=== PATIENT | female | born 1955 | race Caucasian/White ===

== ENCOUNTER 2016-10-21 11:41 | Inpatient (IN) | payer MEDICARE, OTHER ==
[2016-10-21] MEDS ORDERED: SODIUM CHLORIDE 0.9% 500 ML IV ONE (13:06)
--- NOTE | 2016-10-21 13:11 | ED ---
General Adult HPI - General Chief complaint: Recheck/Abnormal Lab/Rx Stated complaint: SENT BY DR EVANS FOR KIDNEY FAILURE Source: patient, RN notes reviewed, old records reviewed Mode of arrival: wheelchair Limitations: no limitations - History of Present Illness Initial comments: Chief complaint and history of present illness a 61-year-old female sent emergency room because of renal failure. Patient reports she had labs done by her family doctor yesterday because she's been feeling generally weak she also reports having loose stool for 1 year. Told to come to the emergency room because of dehydration and renal failure. - Related Data Home Medications Medication Instructions Recorded Confirmed Citalopram Hydrobromide [CeleXA] 40 mg PO DAILY 01/28/15 10/21/16 Fenofibrate Nanocrystallized 145 mg PO HS 01/28/15 10/21/16 [Tricor] Isosorbide Mononitrate ER [Imdur] 60 mg PO DAILY 01/28/15 10/21/16 amLODIPine BESYLATE [Norvasc] 5 mg PO DAILY 01/28/15 10/21/16 traMADol HCl [Ultram] 50 mg PO Q4H PRN 01/28/15 10/21/16 Fluticasone Nasal [place] [Flonase 2 spray EA NOSTRIL DAILY PRN 05/25/15 10/21/16 Nasal [place]] Aspirin [Adult Low Dose Aspirin EC] 81 mg PO DAILY 10/21/16 10/21/16 Previous Rx's Medication Instructions Recorded Nitroglycerin Sl Tabs [Nitrostat] 0.4 mg SUBLINGUAL Q5M PRN #25 tab 05/29/15 Atorvastatin [Lipitor] 80 mg PO DAILY #30 tab 06/10/15 Clopidogrel [Plavix] 75 mg PO DAILY #30 tab 06/10/15 Lisinopril [Zestril] 5 mg PO BID #60 tab 06/10/15 Metoprolol Tartrate [Lopressor] 25 mg PO BID #60 tab 06/10/15 Allergies Allergy/AdvReac Type Severity Reaction Status Date / Time Penicillins Allergy Rash/Hives Verified 10/21/16 13:13 Review of Systems ROS Statement: Those systems with pertinent positive or pertinent negative responses have been documented in the HPI. Review of systems no complaint of headache or visual acuity changes no chest pain or shortness of breath denies abdominal pain but she has had loose stool was daily for 1 year. No complaints of pain at this time she does have low back pain yesterday. No reported history of kidney infection denies frequency urgency or dysuria. No blood in the urine no blood in the stool. All systems reviewed past medical problems significant for coronary disease, diet- controlled diabetes. She's had cardiac bypass graft 7 years ago more recent cardiac catheterization 4 years ago. She also has a stent in her right groin. Family history includes cancers of the lung the sister, mother and uncle. Patient has ALLERGIES to penicillin. She still trying to quit smoking. Strongly encouraged to stop smoking. Denies alcohol use ROS Other: All systems not noted in ROS Statement are negative. Past Medical History Past Medical History: Coronary Artery Disease (CAD), Diabetes Mellitus Last Myocardial Infarction Date:: August 2009 History of Any Multi-Drug Resistant Organisms: None Reported Past Surgical History: Coronary Bypass/CABG, Heart Catheterization With Stent Additional Past Surgical History / Comment(s): triple bypass. heart cath in august 2009 at [facility] in [place]. "stent in right groin from blood clot" Past Anesthesia/Blood Transfusion Reactions: No Reported Reaction Past Psychological History: No Psychological Hx Reported Additional Psychological History / Comment(s): Single. Her adult daughter who is 35 lives with her. Ongoing tobacco smoker from her teenage years. Denies significant alcohol or recreational drug use. No experience. No travel history. No animals in the home at this point in time. His move back to [place] after many years living in the [facility], she would call this home. Smoking Status: Current every day smoker Past Alcohol Use History: None Reported Past Drug Use History: None Reported - Past Family History Father Family Medical History: COPD, Myocardial Infarction ([place]) Mother Family Medical History: Cancer, Myocardial Infarction ([place]) Additional Family Medical History / Comment(s): brain and lung cancer Sister(s) Family Medical History: Diabetes Mellitus, Myocardial Infarction ([place]) Additional Family Medical History / Comment(s): heart cath with stent General Exam - General Exam Comments Initial Comments: General: The patient is awake and alert, only complains low back discomfort yesterday. Loose stool daily for 1 year. Vital signs show temperature 99.5 pulse 71 respiratory rate 18 pulse ox 90% room air blood pressure 129/62. Mildly elevated systolic noted patient will be seen by her family physician Eye: Pupils are equal, round and reactive to light, extra-ocular movements are intact ; there is normal conjunctiva bilaterally. No signs of icterus. Ears, nose, mouth and throat: There are moist mucous membranes , no oral lesions, patient is edentulous. Neck: The neck is supple, there is no tenderness. Cardiovascular: There is a regular rate and rhythm. No murmur, rub or gallop is appreciated. Respiratory: Lungs are clear to auscultation, respirations are non-labored, breath sounds are equal. No wheezes, stridor, rales, or rhonchi. Gastrointestinal: Soft, non-distended, non-tender abdomen without masses or organomegaly noted. There is no rebound or guarding present. No CVA tenderness. Active bowel sounds. Patient reports history of watery stool for 1 year. Back: Mild low back pain. Musculoskeletal: Normal ROM, no tenderness, There is no pedal edema. There is no calf tenderness or swelling. Sensation intact. Pulses equal bilaterally 2+. Neurological: No neuro deficits Skin: Skin is warm and dry and no rashes or lesions are noted. Psychiatric: Denies depression. Limitations: no limitations Course Vital Signs 10/21/16 10/21/16 12:13 14:00 Temperature 99.5 F 98.8 F Pulse Rate 71 74 Respiratory 18 18 Rate Blood Pressure 129/62 126/78 O2 Sat by Pulse 98 97 Oximetry Medical Decision Making - Medical Decision Making Medical decision-making the patient's labs show a cost 7.8 hemoglobin 11.4 hematocrit 35.7, potassium 4.4. Her BUN is 44 creatinine significantly elevated 4.38 the GFR of only 10. The patient be rehydrated here in emergency room. Patient be admitted to Dr. Painter's number and with request for consultation from nephrology. - Lab Data Result diagrams: 10/21/16 12:55 10/21/16 12:55 Lab Results 10/21/16 10/21/16 10/21/16 Range/Units 12:55 12:55 13:17 WBC 7.8 (3.8-10.6) k/uL RBC 3.63 L (3.80-5.40) m/uL Hgb 11.4 (11.4-16.0) gm/dL Hct 35.7 (34.0-46.0) % MCV 98.5 (80.0-100.0) fL MCH 31.5 (25.0-35.0) pg MCHC 32.0 (31.0-37.0) g/dL RDW 13.4 (11.5-15.5) % Plt Count 389 (150-450) k/uL Neutrophils % 59 % Lymphocytes % 32 % Monocytes % 4 % Eosinophils % 4 % Basophils % 0 % Neutrophils # 4.6 (1.3-7.7) k/uL Lymphocytes # 2.5 (1.0-4.8) k/uL Monocytes # 0.3 (0-1.0) k/uL Eosinophils # 0.3 (0-0.7) k/uL Basophils # 0.0 (0-0.2) k/uL Sodium 138 (137-145) mmol/L Potassium 4.4 (3.5-5.1) mmol/L Chloride 108 H (98-107) mmol/L Carbon Dioxide 19 L (22-30) mmol/L Anion Gap 11 mmol/L BUN 44 H (7-17) mg/dL Creatinine 4.38 H (0.52-1.04) mg/dL Est GFR (MDRD) Af Amer 12 (>60 ml/min/1.73 sqM) Est GFR (MDRD) Non-Af 10 (>60 ml/min/1.73 sqM) Glucose 185 H (74-99) mg/dL Calcium 9.0 (8.4-10.2) mg/dL Total Bilirubin 0.3 (0.2-1.3) mg/dL AST 19 (14-36) U/L ALT 24 (9-52) U/L Alkaline Phosphatase 100 (38-126) U/L Total Protein 5.9 L (6.3-8.2) g/dL Albumin 3.0 L (3.5-5.0) g/dL Urine Color Yellow Urine Appearance Clear (Clear) Urine pH 6.5 (5.0-8.0) Ur Specific [place] 1.018 (1.001-1.035) Urine Protein 3+ H (Negative) Urine Glucose (UA) 3+ H (Negative) Urine Ketones Negative (Negative) Urine Blood Negative (Negative) Urine Nitrate Negative (Negative) Urine Bilirubin Negative (Negative) Urine Urobilinogen <2.0 (<2.0) mg/dL Ur Leukocyte Esterase Negative (Negative) Urine RBC 1 (0-5) /hpf Urine WBC 8 H (0-5) /hpf Ur Squamous Epith Cells 2 (0-4) /hpf Urine Bacteria Rare H (None) /hpf Disposition Clinical Impression: Acute renal failure superimposed on chronic kidney disease Disposition: ADMITTED IP TO THIS HOSP Condition: Serious
[2016-10-21 13:21] LABS: Basophils % (A) 0 %; CH 31.2; CHCM 31.8; Eosinophils # (A) 0.3 k/uL (0-0.7); Eosinophils % (A) 4 %; HCT 35.7 % (34.0-46.0); HDW 2.49; HGB 11.4 gm/dL (11.4-16.0); Luc # (Auto) 0.16; Luc % (Auto) 2; Lymphocytes # (A) 2.5 k/uL (1.0-4.8); Lymphocytes % (A) 32 %; MCH 31.5 pg (25.0-35.0); MCV 98.5 fL (80.0-100.0); Mean Platelet Volume 6.7; Monocytes # (A) 0.3 k/uL (0-1.0); Monocytes % (A) 4 %; Neutrophils # (A) 4.6 k/uL (1.3-7.7); Neutrophils % (A) 59 %; RBC 3.63 m/uL (3.80-5.40); RDW 13.4 % (11.5-15.5); WBC 7.8 k/uL (3.8-10.6); WBC (Perox) 7.69
[2016-10-21] MEDS: SODIUM CHLORIDE 0.9% 1,000 ML IV SCH ×2 (13:23→16:24)
[2016-10-21 13:35] LABS: Potassium 4.4 mmol/L (3.5-5.1); Total Bilirubin 0.3 mg/dL (0.2-1.3); Total Protein 5.9 g/dL (6.3-8.2)
[2016-10-21 13:55] LABS: Appearance,Urine Clear (Clear); Bacteria,Urine Rare /hpf; Bilirubin,Urine Negative (Negative); Glucose,Urine (UA) 3+ (Negative); Ketones,Urine Negative (Negative); Leukocyte Esterase,Urine Negative (Negative); Nitrite,Urine Negative (Negative); PH, Urine 6.5 (5.0-8.0); Particle Count 3707; Protein,Urine 3+ (Negative); RBC,Urine 1 /hpf (0-5); Specific Gravity,Urine 1.018 (1.001-1.035); Squamous Epithelial Cell,Urine 2 /hpf (0-4); UA Billing (MACRO vs. MICRO) MICRO; Urobilinogen,Urine <2.0 mg/dL (<2.0); WBC,Urine 8 /hpf (0-5)
[2016-10-21] MEDS ORDERED: NALOXONE 0.4 MG/ML 1 ML VIAL IV PRN (14:56)
[2016-10-21] MEDS ORDERED: FLUTICASONE 50MCG/SPRAY NASAL 16GM EA NOSTRIL PRN (14:59)
[2016-10-21] MEDS ORDERED: SODIUM CHLORIDE 0.9% 1,000 ML IV SCH (15:00)
[2016-10-21 16:46] LABS: Glucose,Whole Blood 131 mg/dL (75-99)
[2016-10-21 16:52] VITALS: BMI 32.3
[2016-10-21] MEDS ORDERED: NITROGLYCERIN SL TABS 0.4 MG TAB SUBLINGUAL PRN (17:03)
[2016-10-21] MEDS ORDERED: LOPERAMIDE 2 MG CAP PO PRN (17:08)
[2016-10-21] MEDS ORDERED: ONDANSETRON 4 MG/2 ML VIAL IVP PRN (17:10)
[2016-10-21] MEDS: traMADol 50 MG TAB PO PRN (18:39)
[2016-10-21] MEDS: LACTATED RINGERS 1,000 ML IV SCH (18:54)
[2016-10-21] MEDS: FENOFIBRATE 160 MG TAB PO SCH (20:38)
[2016-10-21] MEDS: FAMOTIDINE 20 MG/2 ML VIAL IV SCH (20:38)
[2016-10-21] MEDS: METOPROLOL TARTRATE 25 MG TAB PO SCH (20:38)
[2016-10-21] MEDS: CHOLESTYRAMINE (WITH SUGAR) 4 GM PACKET PO SCH (20:39)
[2016-10-21] MEDS ORDERED: LISINOPRIL 5 MG TAB PO SCH (21:00)
--- NOTE | 2016-10-21 21:18 | HP ---
DATE OF ADMISSION: 10/21/2016 Patient is a very pleasant 61-year-old female who came in after she was sent from her doctor's office for chronic renal failure. The patient has baseline creatinine is around 1.99, ( ) 4.5 creatinine, the patient is also on Lisinopril. The patient has chronic diarrhea. Started about six months ago, about four to five episodes whenever after she eats. Patient also complained of some gastritis symptoms after eating, although because of the poor renal function, patient was started on Pepcid instead of proton pump inhibitor and patient was never evaluated for chronic diarrhea in the past. Takes [id number] antidiarrheal medications. Denied any recent use of antibiotics. Patient denied any fatty stool or clear colored stool. Patient denied any floating of stool in the commode. The patient denied any fevers. The patient denied any cough, runny nose or dysuria. Home medications include: 1. Citalopram. 2. Fenofibrate. 3. Isosorbide mononitrate. 4. Amlodipine. 5. Tramadol. 6. Fluticasone. 7. Aspirin. 8. Nitroglycerin. 9. Atorvastatin. 10. Plavix. 11. Lisinopril. 12. Metoprolol. 13. ( ). ALLERGIES: PENICILLIN. REVIEW OF SYSTEMS: CONSTITUTIONAL: No fever, no malaise, no fatigue. HEENT: No recent visual problems or hearing problems. Denied any sore throat. CARDIOVASCULAR: As described in HPI. PULMONARY: No shortness of breath, no cough, no hemoptysis. GASTROINTESTINAL: No diarrhea, no nausea, no vomiting, no abdominal pain. Normoactive bowel sounds. NEUROLOGICAL: No headaches, no weakness, no numbness. HEMATOLOGICAL: Denies any bleeding or petechiae. GENITOURINARY: Denies any burning micturition, frequency, or urgency. MUSCULOSKELETAL/RHEUMATOLOGICAL: Denies any joint pain, swelling, or any muscle pain. ENDOCRINE: Denies any polyuria or polydipsia. The rest of the 14 point review of systems is negative. PAST MEDICAL HISTORY: Significant for coronary artery disease, diabetes mellitus, depression, hyperlipidemia. ALLERGIES to PENICILLIN. Patient has a history of coronary artery bypass grafting in the past. SOCIAL HISTORY: The patient does smoke. Denied any alcohol abuse or any drug abuse. FAMILY HISTORY: Significant for COPD, myocardial infarction in father, mother had cancer and myocardial infarction, sister had diabetes mellitus and myocardial infarction. PHYSICAL EXAMINATION: Temperature 99.5, pulse of 74, respiratory rate 18, blood pressure is 105/78, saturating at 97% on room air. GENERAL: The patient is alert and oriented x3, not in any acute distress. Well developed, well nourished. HEENT: Pupils are round and equally reacting to light. EOMI. No scleral icterus. No conjunctival pallor. Normocephalic, atraumatic. No pharyngeal erythema. No thyromegaly. CARDIOVASCULAR: S1 and S2 present. No murmurs, rubs, or gallops. PULMONARY: Chest is clear to auscultation, no wheezing or crackles. ABDOMEN: Soft, nontender, nondistended, normoactive bowel sounds. No palpable organomegaly. MUSCULOSKELETAL: No joint swelling or deformity. EXTREMITIES: No cyanosis, clubbing, or pedal edema. NEUROLOGICAL: Gross neurological examination did not reveal any focal deficits. SKIN: No rashes. LABORATORY DATA: CBC and BMP are abnormal for elevated chloride of 108, bicarbonate of 19. BUN of 44, creatinine of 4.38. UA 3+ protein, 3+ glucose. Some WBC and leukocyte esterase without any signs or symptoms of urinary tract infection. ASSESSMENT AND PLAN: 1. Secondary ( ) secondary to chronic diarrhea, the patient will be started on IV fluids ( ) per hour, which will be continued. I will use lactated Ringers instead of normal saline since the patient has IV normal saline instead of lactated Ringer's in the place of IV normal saline because of her hyperkalemia. 2. Chronic diarrhea, which needs to be ( ) chronic diarrhea with basic tests, possible rule out Clostridium difficile, we will also order stool leukocytes. Will consult gastroenterology. Patient will need colonoscopy eventually and further evaluation as an outpatient for ( ) her chronic diarrhea. 3. Coronary artery disease. 4. Type 2 diabetes mellitus. 5. Possibility of chronic kidney disease, the patient baseline creatinine is around 1.9. The patient probably has chronic kidney disease Stage III from diabetic nephropathy. Patient does have proteinuria. Acute renal failure is probably due to prerenal azotemia, from chronic diarrhea, the patient chronic kidney disease is probably from diabetic nephropathy and will obtain an ultrasound of the kidney and gallbladder along with urine random sodium and urine random creatinine to assess for fraction excretion of sodium. 6. Chronic diarrhea along with further evaluation we will give symptomatic treatment with Imodium and Questran. Lisinopril will be held. 7. Hypertension. Patient is on multiple medications for hypertension with ( ) pressure ( ) amlodipine ( ) Lisinopril will be held as well because of renal dysfunction.
--- NOTE | 2016-10-21 21:53 | US ---
EXAMINATION TYPE: US kidneys/renal and bladder DATE OF EXAM: 10/21/2016 8:12 PM COMPARISON: NONE CLINICAL HISTORY: kidney failure. EXAM MEASUREMENTS: Right Kidney: 11.7 x 4.7 x 4.6 cm Left Kidney: 11.1 x 4.4 x 4.5cm cm TECHNOLOGIST IMPRESSION: Right Kidney: No hydronephrosis or masses seen Left Kidney: No hydronephrosis or masses seen Bladder: not fully distended There is no evidence for hydronephrosis at this point in time. No nephrolithiasis is seen. No brendon s are identified. The urinary bladder is anechoic. Bilateral ureteral jets are seen. Additionally there are normal cortical medullary junctions bilaterally. IMPRESSION: No evidence of hydronephrosis or nephrolithiasis. No evidence of chronic medical renal disease.
[2016-10-22] MEDS: LACTATED RINGERS 1,000 ML IV SCH ×4 (00:36→20:38)
[2016-10-22 08:57] LABS: Basophils # (A) 0.1 k/uL (0-0.2); Basophils % (A) 1 %; CH 31.1; CHCM 30.6; Eosinophils # (A) 0.3 k/uL (0-0.7); Eosinophils % (A) 4 %; HCT 35.5 % (34.0-46.0); HDW 2.57; HGB 10.8 gm/dL (11.4-16.0); Hypochromasia Moderate; Luc # (Auto) 0.15; Luc % (Auto) 2; Lymphocytes # (A) 1.9 k/uL (1.0-4.8); Lymphocytes % (A) 26 %; MCH 31.1 pg (25.0-35.0); MCHC 30.4 g/dL (31.0-37.0); MCV 102.1 fL (80.0-100.0); Macrocytosis Slight; Mean Platelet Volume 7.5; Monocytes # (A) 0.3 k/uL (0-1.0); Monocytes % (A) 4 %; Neutrophils # (A) 4.6 k/uL (1.3-7.7); Neutrophils % (A) 63 %; RBC 3.48 m/uL (3.80-5.40); RDW 13.4 % (11.5-15.5); WBC 7.3 k/uL (3.8-10.6); WBC (Perox) 7.52
[2016-10-22 09:20] LABS: Calcium 8.9 mg/dL (8.4-10.2); Magnesium 1.5 mg/dL (1.6-2.3); Phosphorous 4.8 mg/dL (2.5-4.5); Potassium 4.8 mmol/L (3.5-5.1)
[2016-10-22] MEDS: ASPIRIN 81 MG CHEW PO SCH (09:24)
[2016-10-22] MEDS: CITALOPRAM HYDROBROMIDE 20 MG TAB PO SCH (09:24)
[2016-10-22] MEDS: ISOSORBIDE MONONITRATE ER 60 MG TAB.ER.24H PO SCH (09:24)
[2016-10-22] MEDS: CLOPIDOGREL 75 MG TAB PO SCH (09:24)
[2016-10-22] MEDS: CHOLESTYRAMINE (WITH SUGAR) 4 GM PACKET PO SCH ×3 (09:24→20:38)
[2016-10-22] MEDS: METOPROLOL TARTRATE 25 MG TAB PO SCH ×2 (09:25→20:38)
[2016-10-22] MEDS: FAMOTIDINE 20 MG/2 ML VIAL IV SCH ×2 (09:25→20:37)
[2016-10-22] MEDS: ATORVASTATIN 80 MG TAB PO SCH (09:25)
--- NOTE | 2016-10-22 12:09 | CONS ---
DATE OF CONSULTATION: 10/22/2016 Requesting physician: Dr. Bond. REASON FOR CONSULTATION: Chronic diarrhea. HISTORY OF PRESENT ILLNESS: The patient is a 61-year-old pleasant lady who was admitted to the hospital because of acute renal failure. Apparently she was not feeling well and went to see Dr. Encarnacion. She had routine labs on an outpatient basis done and her BUN and creatinine were elevated and she was advised to go to the emergency room. The reason we are consulted for chronic diarrhea. She has been having for the last one year duration. She has about 4 or 5 loose watery bowel movements daily and worse after eating. It can be day or night. She denies any rectal bleeding. Reports no recent weight loss. She denies starting any new medications in the last 6 months to one year. She discussed with Dr. Encarnacion and apparently was supposed to have an outpatient colonoscopy but has not happened so far. Her last colonoscopy was more than 10 years ago. She usually takes [id number] antidiarrheal with some relief. She denies any recent travel. Denies any recent antibiotic use. Her past medical history is significant for hypertension, hyperlipidemia, anxiety, depression, degenerative joint disease. Medications at home include: 1. Beta lurdes. 2. Lisinopril. 3. Plavix. 4. Atorvastatin. 5. Aspirin. 6. Nitroglycerin. 7. Zocor. 8. Fluticasone. 9. Tramadol. 10. Amlodipine. 11. Isordil. 12. Fenofibrate. 13. Citalopram. PAST SURGICAL HISTORY: Cardiac cath, coronary artery bypass surgery. SOCIAL HISTORY: No smoking. No alcohol use. FAMILY HISTORY: Father had COPD and MD. Mother had brain and lung cancer. ALLERGIES: PENICILLIN. SOCIAL HISTORY: No alcohol use. REVIEW OF SYSTEMS: CARDIOPULMONARY: No chest pain or shortness of breath. GENITOURINARY: No dysuria or hematuria. MUSCULOSKELETAL: Unremarkable. SKIN: Unremarkable. ENDOCRINE: Unremarkable. PSYCHIATRIC: Unremarkable. NEUROLOGY: Unremarkable. ENT: Vision unremarkable. CONSTITUTIONAL: No recent weight loss. No fevers, chills or night sweats. On physical examination, she appears comfortable in no apparent distress. Vitals as are stable. Blood pressure is 115/55, pulse rate 68, temperature 97.6. HEENT EXAMINATION: Unremarkable. Conjunctivae pink. Sclerae anicteric. Oral cavity, no lesions. NECK: No JVD or lymph node enlargement. Chest was clear to auscultation. HEART: Regular rate and rhythm. ABDOMEN: Soft. Bowel sounds are positive. It was nontender, nondistended. Liver and spleen not palpable. Bowel sounds are positive. EXTREMITIES: No pedal edema. SKIN: No rashes. NEURO: She is alert and oriented x3. No focal deficits. Labs done at the time of admission to the hospital: WBC is 11.3, hemoglobin 10.8, platelets are within normal limits. BUN was 44, creatinine 4.3. Today BUN is 39, creatinine 4.1. ALT, AST, T-bili and alkaline phosphatase are normal. C. difficile was negative. Ova parasites are still pending. IMPRESSION: 1. Acute renal failure superimposed on chronic renal failure. 2. Chronic diarrhea for the last one year duration. The patient having 5 to 6 loose watery bowel movements daily, but no blood or mucus in the stool. Colonoscopy more than 20 years ago was normal and recent stool studies for C. difficile toxin was negative. Discussed with the patient possible other causes of chronic diarrhea. She denies any recent new medications that were started in the last 6 months to one year. RECOMMENDATIONS: 1. Agree with stool studies. 2. Continue to use Imodium as needed if she has recurrent diarrhea. 3. I discussed with her she needs to have outpatient work-up, including an upper endoscopy as well as colonoscopy which will plan in the next 1 or 2 weeks following discharge from the hospital. 4. The patient is agreeable with this plan. Thank you for this consultation.
--- NOTE | 2016-10-22 12:11 | P.NPCON ---
History of Present Illness - Reason for Consult acute renal failure - History of Present Illness Reason for consultation: Acute kidney injury on chronic kidney disease. History of present illness: Patient is a 61-year-old female seen in renal consultation for acute kidney injury on chronic kidney disease. Patient has chronic kidney disease with quite rapid decline in kidney function. Her creatinine was near 1.8 in June 2015; near 3 in March 2016. She was noted to have nephrotic range proteinuria when I saw her in the office and she underwent a kidney biopsy which revealed advanced diabetic kidney disease along with severe interstitial fibrosis and tubular atrophy. She had blood work done at her primary care physician's office and was told to come to the emergency room due to abnormal labs. Her creatinine this admission was 4.38 and is improved to 4.1 with IV hydration. States she's been having watery bowel movements as well as intermittent vomiting for the last 6 months or so. Her appetite has been poor. States she was diagnosed with diabetes at the age of 14 and May was maintained on oral medications for several years up until 4 years ago when she also required insulin. However now she states that she is not taking any medications for her diabetes and is just diet controlled. I'm not sure how reliable she is. Admits to good urine output. Denies chest pain or shortness of breath. Denies use of NSAIDs. Hemodynamically she is stable. Vital signs are stable. General: The patient appeared well nourished and normally developed. HEENT: Head exam is unremarkable. Neck is without jugular venous distension. LUNGS: Lungs are clear to auscultation and percussion. Breath sounds decreased. HEART: Rate and Rhythm are regular. First and second heart sounds normal. No murmurs, rubs or gallops. ABDOMEN: Abdominal exam reveals normal bowel sounds. Non-tender and non- distended. No evidence of peritonitis. EXTREMITITES: No clubbing, cyanosis, or edema. Past Medical History Past Medical History: Coronary Artery Disease (CAD), Diabetes Mellitus, Deep Vein Thrombosis (DVT), Hyperlipidemia, Hypertension, Osteoarthritis (OA), Renal Disease Additional Past Medical History / Comment(s): right leg blood clot post CABG Last Myocardial Infarction Date:: August 2009 History of Any Multi-Drug Resistant Organisms: None Reported Past Surgical History: Coronary Bypass/CABG, Heart Catheterization With Stent Additional Past Surgical History / Comment(s): triple bypass. heart cath in august 2009 at [facility] in [place]. "stent in right groin from blood clot" Past Anesthesia/Blood Transfusion Reactions: No Reported Reaction Date of Last Stent Placement:: August 2009 Past Psychological History: No Psychological Hx Reported Additional Psychological History / Comment(s): Single. Her adult daughter who is 35 lives with her. Ongoing tobacco smoker from her teenage years. Denies significant alcohol or recreational drug use. No experience. No travel history. No animals in the home at this point in time. His move back to [place] after many years living in the [facility], she would call this home. Smoking Status: Former smoker Past Alcohol Use History: None Reported Past Drug Use History: None Reported - Past Family History Father Family Medical History: COPD, Hypertension, Myocardial Infarction ([place]) Mother Family Medical History: Cancer, Myocardial Infarction ([place]) Additional Family Medical History / Comment(s): brain and lung cancer Sister(s) Family Medical History: Cancer, Diabetes Mellitus, Myocardial Infarction ([place]) Additional Family Medical History / Comment(s): heart cath with stent Medications and Allergies Home Medications Medication Instructions Recorded Confirmed Type Citalopram Hydrobromide [CeleXA] 40 mg PO DAILY 01/28/15 10/21/16 History Fenofibrate Nanocrystallized 145 mg PO HS 01/28/15 10/21/16 History [Tricor] Isosorbide Mononitrate ER [Imdur] 60 mg PO DAILY 01/28/15 10/21/16 History amLODIPine BESYLATE [Norvasc] 5 mg PO DAILY 01/28/15 10/21/16 History traMADol HCl [Ultram] 50 mg PO Q4H PRN 01/28/15 10/21/16 History Fluticasone Nasal [place] [Flonase 2 spray EA NOSTRIL DAILY PRN 05/25/15 10/21/16 History Nasal [place]] Aspirin [Adult Low Dose Aspirin EC] 81 mg PO DAILY 10/21/16 10/21/16 History Allergies Allergy/AdvReac Type Severity Reaction Status Date / Time Penicillins Allergy Rash/Hives Verified 10/21/16 13:13 Physical Exam Vitals: Vital Signs Temp Pulse Pulse Resp BP BP Pulse Ox 10/22/16 07:00 65 22 157/69 100 10/21/16 23:00 97.0 F L 65 16 114/54 99 10/21/16 16:01 96.7 F L 64 18 128/62 99 10/21/16 16:00 18 10/21/16 15:33 97.6 F 68 18 115/55 98 Intake and Output 10/21/16 10/22/16 10/22/16 22:59 06:59 14:59 Intake Total 120 Balance 120 Intake: Oral 120 Other: Voiding Method Toilet # Voids 1 1 # Bowel Movements 1 Weight 75 kg 75 kg Patient Weight 10/23/16 06:59 Weight 75 kg Results - Lab Results Most recent lab results Calcium 8.9 mg/dL (8.4-10.2) 10/22/16 08:32 Phosphorus 4.8 mg/dL (2.5-4.5) H 10/22/16 08:32 Magnesium 1.5 mg/dL (1.6-2.3) L 10/22/16 08:32 10/22/16 08:32 10/22/16 08:32 Assessment and Plan Plan: Assessment: #1. Nonoliguric acute kidney injury mostly prerenal in nature secondary to poor oral intake along with vomiting and diarrhea. Creatinine 4.3 done admission and improved to 4.1 today. #2. Chronic kidney disease stage IV. Baseline creatinine near 3 secondary to biopsy-proven advanced diabetic kidney disease along with severe interstitial fibrosis and tubular atrophy. #3. Metabolic acidosis secondary to acute kidney injury. #4. Diabetes mellitus. Initially diagnosed at the age of 14 maintain on oral medications for several years. She was then on IV insulin temporarily. Now she states she doesn't require any meds for diabetes. Plan: Continue with IV fluids to be run at 150 mL an hour for the next 24 hours. Start oral sodium bicarbonate supplementation. Avoid nephrotoxic agents and hypotensive episodes. Check hemoglobin A1c. Thank you for the consultation. I will continue to follow the patient with you during her hospital stay.
--- NOTE | 2016-10-22 16:07 | PN ---
Patient is admitted for acute renal failure, CKD stage IV. Patient has diabetic nephropathy. Patient continues to be on IV fluid at 150 mL/h. At this time patient's kidney function improved a little bit. Patient's renal failure is secondary to chronic diarrhea. Patient evaluated by Gastroenterology. Patient needs to undergo further testing for chronic diarrhea as an outpatient. Patient's diarrhea did improve. There is symptomatic improvement. Patient's C. diff is negative. REVIEW OF SYSTEMS: CARDIOVASCULAR: No chest pain, no orthopnea, no PND, no palpitations. PULMONARY: Denied any shortness of breath. No cough or hemoptysis. GASTROINTESTINAL: As described in HPI. NEUROLOGIC: No headaches, no weakness, no numbness. Medications were reviewed. PHYSICAL EXAMINATION: VITAL SIGNS: Temperature 97.0, pulse of 61, respiratory rate of 16, blood pressure 111/45, saturating at 99% on room air. GENERAL: The patient is alert and oriented x3, not in any acute distress. Well developed, well nourished. HEENT: Pupils are round and equally reacting to light. EOMI. No scleral icterus. No conjunctival pallor. Normocephalic, atraumatic. No pharyngeal erythema. No thyromegaly. CARDIOVASCULAR: S1 and S2 present. No murmurs, rubs, or gallops. PULMONARY: Chest is clear to auscultation, no wheezing or crackles. ABDOMEN: Soft, nontender, nondistended, normoactive bowel sounds. No palpable organomegaly. MUSCULOSKELETAL: No joint swelling or deformity. EXTREMITIES: No cyanosis, clubbing, or pedal edema. NEUROLOGICAL: Gross neurological examination did not reveal any focal deficits. SKIN: No rashes. LABORATORY DATA: As mentioned above in interval history. Patient chloride is 112, because of IV normal saline. Bicarbonate is 17 partly because of hyperchloremia and partly because of uremia. I do not have any lactic acid available at this point of time. ASSESSMENT AND PLAN: 1. Acute renal failure secondary to prerenal azotemia, secondary to chronic diarrhea as mentioned. 2. Chronic diarrhea. Management as mentioned above. 3. Coronary artery disease. 4. Chronic kidney disease stage IV secondary to diabetic nephropathy, biopsy proven. 5. Hypertension. Patient's antihypertensives are being held because of her hypotension and renal failure. Metoprolol is being continued to prevent any reflex tachycardia.
[2016-10-22] MEDS: SODIUM BICARBONATE TAB 650 MG TAB PO SCH ×2 (17:28→20:47)
[2016-10-22] MEDS: traMADol 50 MG TAB PO PRN (20:37)
[2016-10-22] MEDS: FENOFIBRATE 160 MG TAB PO SCH (20:38)
[2016-10-23] MEDS: LACTATED RINGERS 1,000 ML IV SCH ×2 (06:21→10:03)
[2016-10-23 07:42] VITALS: BP 154/95; PULSE 66; RESP 20; TEMP 97.4
[2016-10-23 08:24] LABS: Calcium 8.9 mg/dL (8.4-10.2); Potassium 4.9 mmol/L (3.5-5.1)
[2016-10-23] MEDS: FAMOTIDINE 20 MG/2 ML VIAL IV SCH (08:25)
[2016-10-23] MEDS: ISOSORBIDE MONONITRATE ER 60 MG TAB.ER.24H PO SCH (08:25)
[2016-10-23] MEDS: METOPROLOL TARTRATE 25 MG TAB PO SCH (08:25)
[2016-10-23] MEDS: SODIUM BICARBONATE TAB 650 MG TAB PO SCH (08:25)
[2016-10-23] MEDS: CITALOPRAM HYDROBROMIDE 20 MG TAB PO SCH (08:25)
[2016-10-23] MEDS: CLOPIDOGREL 75 MG TAB PO SCH (08:25)
[2016-10-23] MEDS: ASPIRIN 81 MG CHEW PO SCH (08:25)
[2016-10-23] MEDS: ATORVASTATIN 80 MG TAB PO SCH (08:25)
[2016-10-23] MEDS: traMADol 50 MG TAB PO PRN (08:27)
--- NOTE | 2016-10-23 09:45 | P.PN ---
Subjective Patient is seen in follow-up for acute kidney injury on chronic kidney disease. Patient has chronic kidney disease stage IV secondary to biopsy-proven diabetic kidney disease. Her creatinine in March 2016 was near 3. It was elevated at 4.3 at the time of admission and is improved to 3.79 today with IV hydration. Appetite is improving. Did have an episode of emesis yesterday. Denies any chest pain or shortness of breath. Admits to good urine output. Vital signs are stable. General: The patient appeared well nourished and normally developed. HEENT: Head exam is unremarkable. Neck is without jugular venous distension. LUNGS: Lungs are clear to auscultation and percussion. Breath sounds decreased. HEART: Rate and Rhythm are regular. First and second heart sounds normal. No murmurs, rubs or gallops. ABDOMEN: Abdominal exam reveals normal bowel sounds. Non-tender and non- distended. No evidence of peritonitis. EXTREMITITES: No clubbing, cyanosis, or edema. Objective - Vital Signs Vital signs: Vital Signs Temp 97.4 F L 10/23/16 07:00 Pulse 66 10/23/16 07:00 Resp 20 10/23/16 07:00 BP 154/95 10/23/16 07:00 Pulse Ox 98 10/23/16 07:00 Intake & Output 10/22/16 10/23/16 10/23/16 18:59 06:59 18:59 Intake Total 320 Output Total 1 Balance 320 -1 Weight 75 kg Intake: Oral 320 Output: Emesis 1 Other: # Voids 2 1 - Labs CBC & Chem 7: 10/22/16 08:32 10/23/16 07:33 Labs: Abnormal Lab Results - Last 24 Hours (Table) 10/23/16 Range/Units 07:33 Chloride 114 H (98-107) mmol/L Carbon Dioxide 19 L (22-30) mmol/L BUN 32 H (7-17) mg/dL Creatinine 3.79 H (0.52-1.04) mg/dL Microbiology - Last 24 Hours (Table) 10/22/16 00:00 Stool for WBCs - Final Stool 10/22/16 00:00 Stool Culture - Preliminary Stool Assessment and Plan Plan: Assessment: #1. Nonoliguric acute kidney injury mostly prerenal in nature secondary to poor oral intake along with vomiting and diarrhea. Creatinine 4.3 done admission and improved to 3.79 today. #2. Chronic kidney disease stage IV. Baseline creatinine near 3 secondary to biopsy-proven advanced diabetic kidney disease along with severe interstitial fibrosis and tubular atrophy. #3. Metabolic acidosis secondary to acute kidney injury. Improving. #4. Diabetes mellitus. Initially diagnosed at the age of 14 maintain on oral medications for several years. She was then on IV insulin temporarily. Now she states she doesn't require any meds for diabetes. Plan: Decrease rate of IV fluids to 80 mL an hour. Maintain oral sodium bicarbonate supplementation. Avoid nephrotoxic agents and hypotensive episodes. Check hemoglobin A1c. Follow-up cultures. Possible discharge today. Will need to follow-up as an outpatient in the next 1 -2 weeks.
[2016-10-23] MEDS ORDERED: CHOLESTYRAMINE (WITH SUGAR) 4 GM PACKET PO SCH (10:00)
[2016-10-23] MEDS ORDERED: LACTATED RINGERS 1,000 ML IV SCH (10:00)
[2016-10-23 10:02] LABS: Hemoglobin A1C 5.6 % (4.2-6.1)
--- NOTE | 2016-10-23 12:24 | PN ---
DATE OF SERVICE: 10/23/2016 Patient is a 61-year-old pleasant lady admitted to the hospital with acute renal failure. She has been having diarrhea for the last one-year duration and hence, we are consulted. Stool studies so far showed negative for C. diff toxin and leukocytes were also negative. In the meantime, since she has been in the hospital, the diarrhea has completely resolved. In fact, she did not have a bowel movement today. No abdominal pain. No nausea, vomiting or ( ). On physical examination, she appears comfortable, in no apparent distress. Vitals as are stable. Blood is 122/86, pulse is 84 per minute and afebrile. HEENT EXAMINATION: Unremarkable. Conjunctivae are pink. Sclerae nonicteric. Oral cavity, no lesions. NECK: No JVD or lymph node enlargement. Chest was clear to auscultation. HEART: Regular rate and rhythm. ABDOMEN: Soft. Bowel sounds are positive. EXTREMITIES: No pedal edema. SKIN: No rashes. NEURO: Alert and oriented x3, no focal deficits. LABS: CBC ( ) is pending. Stool cultures so far are negative, leukocytes negative. IMPRESSION: 1. Acute renal failure, on aggressive IV hydration, the BUN and creatinine are gradually improving. 2. Chronic diarrhea for one-year duration. So far stool studies have been negative. RECOMMENDATIONS: Patient advised to have a colonoscopy on an outpatient basis to investigate the diarrhea. For now, continue with symptomatic and supportive care. Will sign off. Please call us if needed. Thank you for this consultation.
--- NOTE | 2016-10-23 17:21 | DS ---
DATE OF ADMISSION: 10/21/2016 DATE OF DISCHARGE: 10/23/2016 Patient is admitted for chronic diarrhea and acute renal failure secondary to that and patient does CKD stage IV. Acute renal failure improved, diarrhea improved with symptomatic treatment. Patient will undergo further evaluation as an outpatient for her chronic diarrhea. Patient was seen and examined on the day of discharge. Vitals are stable. PHYSICAL EXAMINATION: GENERAL: The patient is alert and oriented x3, not in any acute distress. Well developed, well nourished. HEENT: Pupils are round and equally reacting to light. EOMI. No scleral icterus. No conjunctival pallor. Normocephalic, atraumatic. No pharyngeal erythema. No thyromegaly. CARDIOVASCULAR: S1 and S2 present. No murmurs, rubs, or gallops. PULMONARY: Chest is clear to auscultation, no wheezing or crackles. ABDOMEN: Soft, nontender, nondistended, normoactive bowel sounds. No palpable organomegaly. MUSCULOSKELETAL: No joint swelling or deformity. EXTREMITIES: No cyanosis, clubbing, or pedal edema. NEUROLOGICAL: Gross neurological examination did not reveal any focal deficits. SKIN: No rashes. FINAL DIAGNOSES: 1. Acute renal failure secondary to prerenal azotemia which improved with IV fluid hydration. 2. Chronic kidney disease stage IV secondary to diabetic nephropathy. 3. Chronic diarrhea, which will need further evaluation as an outpatient. Symptomatic treatment for now. 4. Type 2 diabetes mellitus. 5. Hypertension. Please refer to my depart summary for further details of discharge medication. DISCHARGE DIET: Cardiac and ADA 1800 calorie diet. Follow up with Dr. Lyudmila Chapa in one week; Dr. Francis Encarnacion in 3 to 7 days; Dr. Benji Zimmer in one week. Activity as tolerated. Spent greater than 35 minutes in total discharge process.
== END 2016-10-23 14:15 | disposition home or self-care (01) | DRG 683 ==
LOC: EC 11:41 → 4MS4W 14:56
PROVIDERS: ADMIT Internal Medicine; ATTEND Internal Medicine
DX: N17.9 Acute kidney failure, unspecified (principal); E87.2 Acidosis; E11.21 Type 2 diabetes mellitus with diabetic nephropathy; E11.22 Type 2 diabetes mellitus with diabetic chronic kidney disease; I95.9 Hypotension, unspecified; E78.5 Hyperlipidemia, unspecified; F17.200 Nicotine dependence, unspecified, uncomplicated; I12.9 Hypertensive chronic kidney disease with stage 1 through stage 4 chronic kidney disease, or unspecified chronic kidney disease; I25.10 Atherosclerotic heart disease of native coronary artery without angina pectoris; I25.2 Old myocardial infarction; K52.9 Noninfective gastroenteritis and colitis, unspecified; N18.4 Chronic kidney disease, stage 4 (severe); F32.9 Major depressive disorder, single episode, unspecified; F41.9 Anxiety disorder, unspecified; K29.70 Gastritis, unspecified, without bleeding; Z79.82 Long term (current) use of aspirin; Z79.02 Long term (current) use of antithrombotics/antiplatelets; Z79.899 Other long term (current) drug therapy; Z88.0 Allergy status to penicillin; Z95.1 Presence of aortocoronary bypass graft; Z95.5 Presence of coronary angioplasty implant and graft; Z82.49 Family history of ischemic heart disease and other diseases of the circulatory system
CPT/HCPCS: 36415; 76770; 80048; 80053; 81001; 82570; 83036; 83735; 84100; 84300; 85025; 87045; 87046; 87086; 87324; 89055; 99285

== ENCOUNTER 2016-11-18 07:28 | Day surgery (SDC) | payer MEDICARE, OTHER ==
[2016-11-16 10:26] VITALS: BMI 32.5
[~2016-11-18 07:28] MED LIST: LACTATED RINGERS 1,000 ML IV SCH
[2016-11-18 07:52] VITALS: RESP 16; TEMP 97.4
[2016-11-18] MEDS ORDERED: LIDOCAINE 1% 20 ML VIAL (10MG/ML) FOR IV START INTRADERMA ONE (07:52)
[2016-11-18 08:00] LABS: Glucose,Whole Blood 86 mg/dL (75-99)
[2016-11-18] MEDS ORDERED: GLUCAGON 1 MG/ML VIAL ONE (08:12)
[2016-11-18] MEDS ORDERED: LABETALOL 5 MG/ML VIAL MDV ONE (08:12)
[2016-11-18] MEDS ORDERED: PROPOFOL 10 MG/ML 20 ML VIAL IV ONE (08:12)
[2016-11-18] MEDS ORDERED: ONDANSETRON 4 MG/2 ML VIAL ONE (08:12)
[2016-11-18] MEDS ORDERED: LIDOCAINE 1% INJ 10MG/ML (20 ML MDV) ONE (08:12)
[2016-11-18] MEDS ORDERED: IV FLUID CONTINUATION 1,000 ML IV ONE (09:10)
--- NOTE | 2016-11-18 09:14 | P.PCN ---
Date of Procedure: 11/18/16 Procedure(s) Performed: Brief history: Patient is a pleasant 61-year-old white female, scheduled for an elective upper endoscopy as well as colonoscopy as a part of evaluation of with chronic diarrhea and abdominal pain for the last 1 year duration. She has bowel movements anywhere from 4-5 a day which are loose to watery in consistency but no blood or mucus in the stool. In view of the symptoms she is scheduled for an upper endoscopy as well as colonoscopy to evaluate further. Procedure performed: Esophagogastroduodenoscopy with biopsy Colonoscopy with snare polypectomy and resolution clip placement Preoperative diagnosis: Abdominal pain and chronic diarrhea Anesthesia: MAC Procedure: After informed consent was obtained from the patient was brought into the endoscopy unit and IV conscious sedation was administered by anesthesia under continuous monitoring. Initially upper endoscopy was done. The Olympus GF 160 video endoscope was inserted inserted into the mouth and esophagus intubated without any difficulty and was gradually advanced into the stomach and duodenum and carefully examined. The bulb and second part of the duodenum appeared normal. In the second part of the duodenum there was a 1 cm some mucosal polyp that was biopsied. The scope was then withdrawn into the stomach adequately insufflated with air and upon careful examination the antrum had mild gastritis and biopsies were done from this area. The body, cardia and fundus appeared normal. The scope was then withdrawn into the esophagus. The GE junction was located at 40 cm to the incisors. It appeared regular with no erythema erosions or ulcerations. Rest of the esophagus appeared normal. Patient tolerated the procedure well. At this time the patient continued to remain sedation. Initial digital rectal examination was normal. Olympus CF 160 video colonoscope was then inserted into the rectum and gradually advanced to the cecum without any difficulty. Careful examination was performed as the scope was gradually being withdrawn. The prep was excellent. in the cecum there were 4 polyps measuring between 1 cm and 5 mm in size all of which were removed by snare polypectomy. In the ascending colon there was a 1 cm polyp removed by snare polypectomy. In the transverse colon there were total of 4 polyps one of which measured 3 cm and the other 2 measured 2 cm in size and one polyp that was 1 cm in size which was removed by snare polypectomy. In the descending colon revealed 1 cm and 2 cm polyp status post by snare polypectomy. In the sigmoid colon at 30 cm from the anal verge there was a 2 cm thick pedunculated sigmoid colon polyp that was removed by snare polypectomy following which there was some oozing identified at the stalk of the polyp and hence resolution clip was placed with good hemostasis. In the rectum and sigmoid colons 27 minutes from the anal was there was a 4 cm polypoid pedunculated polyp seen which was removed by snare polypectomy and complete polypectomy was accomplished. In the proximal rectum there was a 1 cm the polyp removed by snare polypectomy. Retroflexion was performed in the rectum and no lesions were noted. Patient tolerated the procedure well. Impression: 1.upper endoscopy revealed mild antral gastritis and a 1 cm submucosal duodenal polyp status post biopsy 2. Colonoscopy revealed : a) 1 cm, and 5 mm 3 cecal polyps status post snare polypectomy b) 1 cm ascending colon polyp serous was snare polypectomy c) 3 cm broad-based polyp, 2 cm 2 and 1 cm 2 transverse colon polyps status post polypectomy d) 1 cm and 2 cm descending colon polyps status post polypectomy e) 2 cm thick pedunculated sigmoid colon polyp status post snare polypectomy, some oozing noted at the stalk of the polyp and hence resolution clip was placed with good hemostasis f) 4 cm polypoid pedunculated rectosigmoid polyp status post snare polypectomy in a piecemeal fashion and complete polypectomy accomplished g) 1.5 cm proximal rectal polyp status post polypectomy Recommendations: Findings of this examination were discussed with the patient as well as her family. She was advised to follow with the biopsy results. She will be seen in office in one to 2 weeks and will discuss the biopsy results and plan a repeat colonoscopy in 3 months.]
[2016-11-18 09:33] LABS: Glucose,Whole Blood 144 mg/dL (75-99)
[2016-11-18] MEDS ORDERED: METOCLOPRAMIDE 5 MG/ML 2 ML VIAL IVP ONE (09:36)
[2016-11-18] MEDS ORDERED: ACETAMINOPHEN TAB 500 MG TAB PO STA (09:46)
[2016-11-18 10:15] VITALS: BP 175/67; PULSE 70
== END 2016-11-18 10:26 | disposition home or self-care (01) ==
LOC: ORWHC2ENDO 07:28
PROVIDERS: ATTEND Internal Medicine Gastroenterology
DX: D12.0 Benign neoplasm of cecum (principal); D12.7 Benign neoplasm of rectosigmoid junction; D12.2 Benign neoplasm of ascending colon; D12.4 Benign neoplasm of descending colon; D12.5 Benign neoplasm of sigmoid colon; D12.3 Benign neoplasm of transverse colon; D12.8 Benign neoplasm of rectum; K29.80 Duodenitis without bleeding; K29.50 Unspecified chronic gastritis without bleeding; I25.10 Atherosclerotic heart disease of native coronary artery without angina pectoris; I10 Essential (primary) hypertension; E78.5 Hyperlipidemia, unspecified; N28.9 Disorder of kidney and ureter, unspecified; Z88.0 Allergy status to penicillin; Z79.02 Long term (current) use of antithrombotics/antiplatelets; Z79.82 Long term (current) use of aspirin; Z79.899 Other long term (current) drug therapy; Z79.51 Long term (current) use of inhaled steroids; Z95.1 Presence of aortocoronary bypass graft; Z95.5 Presence of coronary angioplasty implant and graft
CPT/HCPCS: 88305; 88342; 45385; 43239; J1610; J2765; J2405; J2001; J2704

== ENCOUNTER 2016-12-28 15:40 | Inpatient (IN) | payer MEDICARE, OTHER ==
[2016-12-28] MEDS ORDERED: SODIUM CHLORIDE 0.9% 500 ML IV ONE (16:23)
[2016-12-28] MEDS ORDERED: IPRATROPIUM-ALBUTEROL 3 ML NEB INHALATION STA (16:23)
--- NOTE | 2016-12-28 16:39 | ED ---
General Adult HPI - General Source: patient, RN notes reviewed Mode of arrival: ambulatory Limitations: no limitations <Tony Philip - Last Filed: 12/28/16 17:29> <Yung Pandya - Last Filed: 01/04/17 05:18> - General Chief complaint: Recheck/Abnormal Lab/Rx Stated complaint: Dr Sent/ Kidney failure Time Seen by Provider: 12/28/16 16:19 - History of Present Illness Initial comments: 61-year-old female presents emergency department for abnormal labs. Patient states she saw her primary care physician for regular checkup, cold visit. Patient states that she's been sick over the last 3 days and was diagnosed with upper respiratory infection states that she is mostly of antibiotics today but she received a phone call from primary care physician [facility] to the hospital for renal failure. She states she has had problem with renal failure in the past but states that she was told was worse. Patient does feel fatigued. Denies any chest pain. Patient has COPD and has been wheezing. She also has had some sinus congestion. Denies any abdominal pain, nausea vomiting diarrhea constipation. (Tony Philip) - Related Data Home Medications Medication Instructions Recorded Confirmed Citalopram Hydrobromide [CeleXA] 40 mg PO DAILY 01/28/15 12/28/16 Isosorbide Mononitrate ER [Imdur] 60 mg PO DAILY 01/28/15 12/28/16 traMADol HCl [Ultram] 50 mg PO Q4H PRN 01/28/15 12/28/16 Fluticasone Nasal [place] [Flonase 2 spray EA NOSTRIL DAILY PRN 05/25/15 11/18/16 Nasal [place]] Aspirin [Adult Low Dose Aspirin EC] 81 mg PO DAILY 10/21/16 12/28/16 ALPRAZolam [Alprazolam] 0.25 mg PO HS 12/28/16 12/28/16 Sodium Bicarbonate Tab 650 mg PO AC-BID 12/28/16 12/28/16 Previous Rx's Medication Instructions Recorded Nitroglycerin Sl Tabs [Nitrostat] 0.4 mg SUBLINGUAL Q5M PRN #25 tab 05/29/15 Atorvastatin [Lipitor] 80 mg PO DAILY #30 tab 06/10/15 Clopidogrel [Plavix] 75 mg PO DAILY #30 tab 06/10/15 Metoprolol Tartrate [Lopressor] 25 mg PO BID #60 tab 06/10/15 Cholestyramine (with Sugar) 4 gm PO TID BETWEEN MEALS #30 10/23/16 [Questran Packet] packet Loperamide [Imodium] 2 mg PO QID PRN #30 cap 10/23/16 Budesonide [Pulmicort] 1 mg INHALATION RT-BID #60 nebu 01/02/17 Calcium Acetate [PhosLo] 667 mg PO TID-W/MEALS #90 cap 01/02/17 Ipratropium-Albuterol Nebulize 3 ml INHALATION RT-TID #90 01/02/17 [Duoneb 0.5 mg-3 mg/3 ml Soln] ampul.neb Prazosin [Minipress] 2 mg PO TID #90 cap 01/02/17 amLODIPine [Norvasc] 10 mg PO DAILY #30 tab 01/02/17 predniSONE 20 mg PO DAILY #4 tab 01/02/17 Allergies Allergy/AdvReac Type Severity Reaction Status Date / Time Penicillins Allergy Rash/Hives Verified 12/28/16 16:44 Review of Systems ROS Other: All systems not noted in ROS Statement are negative. <Tony Philip - Last Filed: 12/28/16 17:29> ROS Other: All systems not noted in ROS Statement are negative. <Yung Pandya - Last Filed: 01/04/17 05:18> ROS Statement: Those systems with pertinent positive or pertinent negative responses have been documented in the HPI. Past Medical History Past Medical History: Coronary Artery Disease (CAD), Diabetes Mellitus, Deep Vein Thrombosis (DVT), Hyperlipidemia, Hypertension, Osteoarthritis (OA), Renal Disease Additional Past Medical History / Comment(s): right leg blood clot post CABG Last Myocardial Infarction Date:: August 2009 History of Any Multi-Drug Resistant Organisms: None Reported Past Surgical History: Coronary Bypass/CABG, Heart Catheterization With Stent Additional Past Surgical History / Comment(s): triple bypass. heart cath in august 2009 at [facility] in [place]. "stent in right groin from blood clot" Past Anesthesia/Blood Transfusion Reactions: No Reported Reaction Date of Last Stent Placement:: August 2009 Past Psychological History: No Psychological Hx Reported Additional Psychological History / Comment(s): Single. Her adult daughter who is 35 lives with her. Ongoing tobacco smoker from her teenage years. Denies significant alcohol or recreational drug use. No experience. No travel history. No animals in the home at this point in time. His move back to [place] after many years living in the [facility] part of the [facility], she would call this home. Smoking Status: Current every day smoker Past Alcohol Use History: None Reported Additional Past Alcohol Use History / Comment(s): smoker since teenager Past Drug Use History: None Reported - Past Family History Father Family Medical History: COPD, Hypertension, Myocardial Infarction ([place]) Mother Family Medical History: Cancer, Myocardial Infarction ([place]) Additional Family Medical History / Comment(s): brain and lung cancer Sister(s) Family Medical History: Cancer, Diabetes Mellitus, Myocardial Infarction ([place]) Additional Family Medical History / Comment(s): heart cath with stent <Tony Philip - Last Filed: 12/28/16 17:29> General Exam Limitations: no limitations General appearance: alert, in no apparent distress Head exam: Present: atraumatic, normocephalic, normal inspection Eye exam: Present: normal appearance, PERRL, EOMI. Absent: scleral icterus, conjunctival injection, periorbital swelling ENT exam: Present: normal oropharynx Neck exam: Present: normal inspection, full ROM. Absent: tenderness, meningismus, lymphadenopathy Respiratory exam: Present: wheezes. Absent: normal lung sounds bilaterally, respiratory distress, rales, rhonchi, stridor Cardiovascular Exam: Present: regular rate, normal rhythm, normal heart sounds. Absent: systolic murmur, diastolic murmur, rubs, gallop, clicks GI/Abdominal exam: Present: soft, normal bowel sounds. Absent: distended, tenderness, guarding, rebound, rigid Neurological exam: Present: alert, oriented X3, CN II-XII intact Skin exam: Present: warm, dry, intact, normal color. Absent: rash <Tony Philip - Last Filed: 12/28/16 17:29> Medical Decision Making - Lab Data Result diagrams: 12/28/16 16:27 12/28/16 16:27 <Tony Philip - Last Filed: 12/28/16 17:29> - Lab Data Result diagrams: 01/01/17 07:28 01/01/17 07:28 <Yung Pandya - Last Filed: 01/04/17 05:18> - Medical Decision Making I saw this patient in conjunction with the physician bilingual teacher assistant. I performed independent history and physical exam. Agree with case management. (Yung Pandya) - Lab Data Lab Results 12/28/16 12/28/16 12/28/16 Range/Units 16:27 16:27 16:27 WBC 10.8 H (3.8-10.6) k/uL RBC 3.73 L (3.80-5.40) m/uL Hgb 11.2 L (11.4-16.0) gm/dL Hct 35.7 (34.0-46.0) % MCV 95.8 (80.0-100.0) fL MCH 30.1 (25.0-35.0) pg MCHC 31.4 (31.0-37.0) g/dL RDW 13.8 (11.5-15.5) % Plt Count 338 (150-450) k/uL Neutrophils % 69 % Lymphocytes % 23 % Monocytes % 3 % Eosinophils % 3 % Basophils % 0 % Neutrophils # 7.4 (1.3-7.7) k/uL Lymphocytes # 2.5 (1.0-4.8) k/uL Monocytes # 0.3 (0-1.0) k/uL Eosinophils # 0.4 (0-0.7) k/uL Basophils # 0.1 (0-0.2) k/uL Sodium 136 L (137-145) mmol/L Potassium 4.3 (3.5-5.1) mmol/L Chloride 110 H (98-107) mmol/L Carbon Dioxide 19 L (22-30) mmol/L Anion Gap 7 mmol/L BUN 39 H (7-17) mg/dL Creatinine 6.31 H* (0.52-1.04) mg/dL Est GFR (MDRD) Af Amer 8 (>60 ml/min/1.73 sqM) Est GFR (MDRD) Non-Af 7 (>60 ml/min/1.73 sqM) Glucose 138 H (74-99) mg/dL Plasma Lactic Acid Bar 1.3 (0.7-2.0) mmol/L Calcium 7.7 L (8.4-10.2) mg/dL Phosphorus 6.9 H (2.5-4.5) mg/dL Magnesium 2.0 (1.6-2.3) mg/dL Total Bilirubin 0.3 (0.2-1.3) mg/dL AST 18 (14-36) U/L ALT 20 (9-52) U/L Alkaline Phosphatase 120 (38-126) U/L Total Protein 5.1 L (6.3-8.2) g/dL Albumin 2.2 L (3.5-5.0) g/dL Urine Color Urine Appearance (Clear) Urine pH (5.0-8.0) Ur Specific [place] (1.001-1.035) Urine Protein (Negative) Urine Glucose (UA) (Negative) Urine Ketones (Negative) Urine Blood (Negative) Urine Nitrite (Negative) Urine Bilirubin (Negative) Urine Urobilinogen (<2.0) mg/dL Ur Leukocyte Esterase (Negative) Urine WBC (0-5) /hpf Ur Squamous Epith Cells (0-4) /hpf Urine Bacteria (None) /hpf Hyaline Casts (0-2) /lpf Urine Mucus (None) /hpf 12/28/16 Range/Units 16:27 WBC (3.8-10.6) k/uL RBC (3.80-5.40) m/uL Hgb (11.4-16.0) gm/dL Hct (34.0-46.0) % MCV (80.0-100.0) fL MCH (25.0-35.0) pg MCHC (31.0-37.0) g/dL RDW (11.5-15.5) % Plt Count (150-450) k/uL Neutrophils % % Lymphocytes % % Monocytes % % Eosinophils % % Basophils % % Neutrophils # (1.3-7.7) k/uL Lymphocytes # (1.0-4.8) k/uL Monocytes # (0-1.0) k/uL Eosinophils # (0-0.7) k/uL Basophils # (0-0.2) k/uL Sodium (137-145) mmol/L Potassium (3.5-5.1) mmol/L Chloride (98-107) mmol/L Carbon Dioxide (22-30) mmol/L Anion Gap mmol/L BUN (7-17) mg/dL Creatinine (0.52-1.04) mg/dL Est GFR (MDRD) Af Amer (>60 ml/min/1.73 sqM) Est GFR (MDRD) Non-Af (>60 ml/min/1.73 sqM) Glucose (74-99) mg/dL Plasma Lactic Acid Bar (0.7-2.0) mmol/L Calcium (8.4-10.2) mg/dL Phosphorus (2.5-4.5) mg/dL Magnesium (1.6-2.3) mg/dL Total Bilirubin (0.2-1.3) mg/dL AST (14-36) U/L ALT (9-52) U/L Alkaline Phosphatase (38-126) U/L Total Protein (6.3-8.2) g/dL Albumin (3.5-5.0) g/dL Urine Color Yellow Urine Appearance Cloudy H (Clear) Urine pH 7.5 (5.0-8.0) Ur Specific [place] 1.022 (1.001-1.035) Urine Protein 4+ H (Negative) Urine Glucose (UA) 3+ H (Negative) Urine Ketones Negative (Negative) Urine Blood Small H (Negative) Urine Nitrite Positive H (Negative) Urine Bilirubin Negative (Negative) Urine Urobilinogen <2.0 (<2.0) mg/dL Ur Leukocyte Esterase Moderate H (Negative) Urine WBC 136 H (0-5) /hpf Ur Squamous Epith Cells 1 (0-4) /hpf Urine Bacteria Rare H (None) /hpf Hyaline Casts 7 H (0-2) /lpf Urine Mucus Rare H (None) /hpf Disposition <Tony Philip - Last Filed: 12/28/16 17:29> <Yung Pandya - Last Filed: 01/04/17 05:18> Clinical Impression: Acute renal failure superimposed on chronic kidney disease, UTI (urinary tract infection), Fever, COPD (chronic obstructive pulmonary disease) Disposition: ADMITTED IP TO THIS HOSP Condition: Fair
[2016-12-28 16:46] LABS: Basophils # (A) 0.1 k/uL (0-0.2); Basophils % (A) 0 %; CH 31.1; CHCM 32.7; Eosinophils # (A) 0.4 k/uL (0-0.7); Eosinophils % (A) 3 %; HCT 35.7 % (34.0-46.0); HDW 2.83; HGB 11.2 gm/dL (11.4-16.0); Luc # (Auto) 0.13; Luc % (Auto) 1; Lymphocytes # (A) 2.5 k/uL (1.0-4.8); Lymphocytes % (A) 23 %; MCH 30.1 pg (25.0-35.0); MCHC 31.4 g/dL (31.0-37.0); MCV 95.8 fL (80.0-100.0); Mean Platelet Volume 6.6; Monocytes # (A) 0.3 k/uL (0-1.0); Monocytes % (A) 3 %; Neutrophils # (A) 7.4 k/uL (1.3-7.7); Neutrophils % (A) 69 %; RBC 3.73 m/uL (3.80-5.40); RDW 13.8 % (11.5-15.5); WBC 10.8 k/uL (3.8-10.6); WBC (Perox) 10.99
[2016-12-28 16:51] LABS: Appearance,Urine Cloudy (Clear); Bacteria,Urine Rare /hpf; Bilirubin,Urine Negative (Negative); Glucose,Urine (UA) 3+ (Negative); Ketones,Urine Negative (Negative); Leukocyte Esterase,Urine Moderate (Negative); Mucus,Urine Rare /hpf; Nitrite,Urine Positive (Negative); PH, Urine 7.5 (5.0-8.0); Particle Count 9747; Protein,Urine 4+ (Negative); Specific Gravity,Urine 1.022 (1.001-1.035); Squamous Epithelial Cell,Urine 1 /hpf (0-4); UA Billing (MACRO vs. MICRO) MICRO; Urobilinogen,Urine <2.0 mg/dL (<2.0); WBC,Urine 136 /hpf (0-5)
[2016-12-28 17:05] LABS: Calcium 7.7 mg/dL (8.4-10.2); Phosphorous 6.9 mg/dL (2.5-4.5); Potassium 4.3 mmol/L (3.5-5.1); Total Bilirubin 0.3 mg/dL (0.2-1.3); Total Protein 5.1 g/dL (6.3-8.2)
--- NOTE | 2016-12-28 17:11 | XR ---
EXAMINATION TYPE: XR chest 2V DATE OF EXAM: 12/28/2016 5:05 PM COMPARISON: 06/07/2015 HISTORY: Short of breath TECHNIQUE: Frontal and lateral views of the chest are obtained. FINDINGS: There is no heart failure nor confluent pneumonic infiltrate. There are no hilar masses. H eart size is normal. There is no pleural effusion. There are sternal wires. Bony thorax appears intac t. There is spurring in lower thoracic spine. IMPRESSION: No active cardiopulmonary disease. Normal heart. No change.
[2016-12-28] MEDS ORDERED: ACETAMINOPHEN TAB 325 MG TAB PO PRN (17:31)
[2016-12-28] MEDS ORDERED: ONDANSETRON 4 MG/2 ML VIAL IVP PRN (17:31)
[2016-12-28] MEDS ORDERED: NALOXONE 0.4 MG/ML 1 ML VIAL IV PRN (17:31)
[2016-12-28] MEDS ORDERED: LOPERAMIDE 2 MG CAP PO PRN (17:32)
[2016-12-28] MEDS ORDERED: hydrALAZINE HCL 20 MG/ML 1 ML VIAL IVP STA (17:35)
[2016-12-28] MEDS: CHOLESTYRAMINE (WITH SUGAR) 4 GM PACKET PO SCH (19:38)
[2016-12-28] MEDS: traMADol 50 MG TAB PO PRN (19:45)
[2016-12-28] MEDS: ALPRAZolam 0.25 MG TAB PO SCH (19:59)
[2016-12-28] MEDS: METOPROLOL TARTRATE 25 MG TAB PO SCH (19:59)
[2016-12-28] MEDS: SODIUM CHLORIDE 0.9% 1,000 ML IV SCH (20:00)
[2016-12-28] MEDS: BUDESONIDE 1 MG/2 ML NEBU INHALATION SCH (20:40)
[2016-12-28] MEDS: predniSONE 20 MG TAB PO SCH (21:40)
[2016-12-28] MEDS: IPRATROPIUM-ALBUTEROL 3 ML NEB INHALATION SCH (23:12)
--- NOTE | 2016-12-28 23:18 | HP ---
DATE OF ADMISSION: 12/28/2016 PRESENTING COMPLAINT: Weak and tired. HISTORY OF PRESENTING COMPLAINT: This is a 61-year-old patient of Dr. Encarnacion who went to get ( ) office, was called in today because creatinine had jumped up to 6.3; hence she was admitted. Patient does have some element of chronic kidney disease; saw Dr. Zimmer 3 months ago and a renal biopsy as per the patient was unremarkable. Patient's chronic stable medical conditions include coronary artery disease, diabetes, DVT, hypertension, hyperlipidemia, osteoarthritis. Patient is also a smoker. She has never had a good appetite for the last 3 months. Appetite has gone down. REVIEW OF SYSTEMS: CONSTITUTIONAL: Tired. HEENT: Nasal stuffiness. RESPIRATORY: Some wheezing and cough. CARDIOVASCULAR: None. GASTROINTESTINAL: Had some diarrhea yesterday; none anymore. GENITOURINARY: None. MUSCULOSKELETAL: Aches and pains in multiple joints. DERMATOLOGICAL: None. HEMATOLOGICAL: None. LYMPHATIC: None. PSYCHIATRY: None. NEUROLOGICAL: None. PAST MEDICAL HISTORY: 1. Coronary artery disease. 2. Diabetes. 3. DVT. 4. Hyperlipidemia. 5. Hypertension. 6. Osteoarthritis. 7. Chronic kidney disease. 8. Right leg blood clot after CABG in August 2009. PAST SURGICAL HISTORY: 1. Coronary artery bypass. 2. Cardiac cath with stent. 3. Triple bypass in 2009 at [facility] in [place]. 4. Stent in the right groin from blood clot. SOCIAL HISTORY: Patient lives with daughter and granddaughter. Patient has been smoking at least half a pack a day for many years. Alcohol: none. FAMILY HISTORY: Myocardial infarction, COPD, hypertension, brain and lung cancer. HOME MEDICATIONS: 1. Xanax 0.25 p.o. at bedtime. 2. Ultram 50 mg q.4 p.r.n. 3. Norvasc 5 mg p.o. daily. 4. Sodium bicarb 650 mg p.o. b.i.d. 5. Nitrostat 0.4 sublingually q.5 p.r.n. 6. Lopressor 25 mg p.o. b.i.d. 7. Imodium 2 mg p.o. q.i.d. p.r.n. 8. Imdur ER 60 mg p.o. daily. 9. Plavix 75 mg p.o. daily. 10. Celexa 40 mg p.o. daily. 11. Questran 4 grams p.o. t.i.d. with meals. 12. Lipitor 80 mg p.o. daily. 13. Aspirin 300 mg p.o. daily. 14. Flonase. ALLERGIES: PENICILLIN. On examination, temperature 100.1, pulse 74, respiration 18, blood pressure 185/87, pulse ox 98% on room air. GENERAL APPEARANCE: Well built; BMI of 31.4. Lying in bed. Tired-appearing. EYES: Pupils equal. Conjunctivae normal. HEENT: External appearance of nose and ears normal. Oral cavity normal. Nasal stuffiness noted. NECK: JVD not raised. Mass not palpable. RESPIRATORY: Effort increased. LUNGS: Diminished breath sounds. Prolonged expiration, wheezing. CARDIOVASCULAR: First and second sounds normal. No edema. ABDOMEN: Soft, nontender. Liver and spleen not palpable. LYMPHATIC: No lymph node palpable in neck or axillae. PSYCHIATRIC: Alert and oriented x3. Mood and affect normal. NEUROLOGICAL: Pupils equal. Cranial nerves grossly intact. Power and sensation grossly intact. INVESTIGATIONS: White count 10.8, hemoglobin 11.2. Potassium 4.3. BUN 39, creatinine 6.31. Patient's BUN and creatinine were 32 and 3.79 back on 10/23/16. UA showing moderate leukocyte esterase, WBCs positive 136. ASSESSMENT: 1. Acute renal failure; could be acute tubular necrosis with element of prerenal, present at admission. 2. Acute urinary tract infection. 3. Acute chronic obstructive pulmonary disease exacerbation, present on admission in a smoker. 4. Chronic nicotine dependence. Patient is an active cigarette smoker. 5. Coronary artery disease with prior history of stent and coronary artery bypass graft. 6. Diabetes mellitus, type 2; noted but not on any medications. 7. Hyperlipidemia. 8. Essential hypertension, uncontrolled on presentation. 9. Primary osteoarthritis in multiple joints, bilateral. 10. Chronic kidney disease, stage III, from diabetic nephropathy and ( ) nephrosclerosis. PLAN: Patient is put on IV ceftriaxone. Will be also given IV fluids, sodium bicarb. Home medications are ( ). Consultation is made to Nephrology. Patient is also being put on nebulized bronchodilators and nebulized steroids. Advised against smoking and given a nicotine patch. Care was discussed with the patient.
[2016-12-29] MEDS: IPRATROPIUM-ALBUTEROL 3 ML NEB INHALATION SCH ×5 (03:56→19:25)
[2016-12-29] MEDS: SODIUM CHLORIDE 0.9% 1,000 ML IV SCH ×2 (06:05→21:15)
[2016-12-29] MEDS: BUDESONIDE 1 MG/2 ML NEBU INHALATION SCH ×2 (07:59→19:25)
[2016-12-29] MEDS: predniSONE 20 MG TAB PO SCH (08:00)
[2016-12-29] MEDS: CLOPIDOGREL 75 MG TAB PO SCH (08:00)
[2016-12-29] MEDS: ATORVASTATIN 80 MG TAB PO SCH (08:00)
[2016-12-29] MEDS: SODIUM BICARBONATE TAB 650 MG TAB PO SCH ×2 (08:00→17:11)
[2016-12-29] MEDS: METOPROLOL TARTRATE 25 MG TAB PO SCH ×2 (08:00→21:13)
[2016-12-29] MEDS: CITALOPRAM HYDROBROMIDE 20 MG TAB PO SCH (08:00)
[2016-12-29] MEDS: ISOSORBIDE MONONITRATE ER 60 MG TAB.ER.24H PO SCH (08:01)
[2016-12-29 08:36] LABS: Calcium 7.7 mg/dL (8.4-10.2); Potassium 4.7 mmol/L (3.5-5.1)
[2016-12-29] MEDS ORDERED: amLODIPine 5 MG TAB PO SCH (09:00)
[2016-12-29] MEDS: CHOLESTYRAMINE (WITH SUGAR) 4 GM PACKET PO SCH ×3 (10:10→18:28)
[2016-12-29] MEDS: traMADol 50 MG TAB PO PRN ×3 (10:17→21:16)
--- NOTE | 2016-12-29 11:48 | P.NPCON ---
History of Present Illness - Reason for Consult chronic renal failure - History of Present Illness Reason for consultation: Chronic kidney disease History of present illness: Patient is a 61-year-old female seen in renal consultation for chronic kidney disease. Patient follows as an outpatient in our clinic and is noted to have chronic kidney disease stage IV with baseline creatinine near 3.8- 4 in October 2016. Patient had blood work done and was told to come to the hospital due to worsening renal failure. Her creatinine was 6.3 and admission and is up to 6.5 today. She did undergo a renal biopsy in June 2016 which revealed nodular diabetic male with sclerosis along with severe interstitial fibrosis and tubular atrophy. Patient has a long-standing history of insulin- dependent diabetes mellitus and was initially diagnosed as a child. Patient never followed up as an outpatient after her biopsy. She admits to good urine output. No hematuria or dysuria. Denies use of NSAIDs. She does admit to feeling quite fatigued. Her oral intake is poor. Denies vomiting or diarrhea. Denies fever or chills. Does admit to generalized weakness but no other complaints at this time. Vital signs are stable. General: The patient appeared well nourished and normally developed. HEENT: Head exam is unremarkable. Neck is without jugular venous distension. LUNGS: Lungs are clear to auscultation and percussion. Breath sounds decreased. HEART: Rate and Rhythm are regular. First and second heart sounds normal. No murmurs, rubs or gallops. ABDOMEN: Abdominal exam reveals normal bowel sounds. Non-tender and non- distended. No evidence of peritonitis. EXTREMITITES: No clubbing, cyanosis, or edema. Past Medical History Past Medical History: Coronary Artery Disease (CAD), COPD, Diabetes Mellitus, Deep Vein Thrombosis (DVT), Hyperlipidemia, Hypertension, Osteoarthritis (OA), Renal Disease Additional Past Medical History / Comment(s): right leg blood clot post CABG, CATARACTS, SINUS PROBLEMS. STATED "WT DOWN FROM 258 TO 166 OVER PAST YEAR STATED D/T INTERMITTENT N/V/D. CURRNETLY NO PRONLEMS W/DIARRHEA" Last Myocardial Infarction Date:: August 2009 History of Any Multi-Drug Resistant Organisms: None Reported Past Surgical History: Section, Coronary Bypass/CABG, Heart Catheterization With Stent, Tubal Ligation Additional Past Surgical History / Comment(s): triple bypass. heart cath in august 2009 at [facility] in [place]. "stent in right groin" RT KIDNEY BX. EGD/COLONOSCOPY MULTIPLE POLYPS REMOVED Past Anesthesia/Blood Transfusion Reactions: No Reported Reaction, Motion Sickness Additional Past Anesthesia/Blood Transfusion Reaction / Comment(s): BLOOD TRANSFUSION A BABY, CLAUSTERPHOBIA Date of Last Stent Placement:: August 2009 Past Psychological History: No Psychological Hx Reported Additional Psychological History / Comment(s): Single, RETIRED/DISABILTY. 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 Her adult daughter who is 35 lives with her.LIVES IN SINGLE LEVEL HOME THAT HAS 1 STEP, CANE, GLUCOMETER. Ongoing tobacco smoker from her teenage years. Denies significant alcohol or recreational drug use. No experience. No travel history. No animals in the home at this point in time. His move back to [place] after many years living in the [facility] part of [facility], she would call this home. Smoking Status: Current every day smoker Past Alcohol Use History: None Reported Additional Past Alcohol Use History / Comment(s): STARTED SMOKING AT AGE 19- QUIT WHEN WITH DAUGHTER THEN RESTARTED SMOKES 10-15 CIGr Past Drug Use History: None Reported - Past Family History Father Family Medical History: COPD, Hypertension, Myocardial Infarction ([place]) Mother Family Medical History: Cancer, Myocardial Infarction ([place]) Additional Family Medical History / Comment(s): brain and lung cancer Sister(s) Family Medical History: Cancer, Diabetes Mellitus, Myocardial Infarction ([place]) Additional Family Medical History / Comment(s): heart cath with stent Medications and Allergies Home Medications Medication Instructions Recorded Confirmed Type Citalopram Hydrobromide [CeleXA] 40 mg PO DAILY 01/28/15 12/28/16 History Isosorbide Mononitrate ER [Imdur] 60 mg PO DAILY 01/28/15 12/28/16 History amLODIPine BESYLATE [Norvasc] 5 mg PO DAILY 01/28/15 12/28/16 History traMADol HCl [Ultram] 50 mg PO Q4H PRN 01/28/15 12/28/16 History Fluticasone Nasal [place] [Flonase 2 spray EA NOSTRIL DAILY PRN 05/25/15 11/18/16 History Nasal [place]] Aspirin [Adult Low Dose Aspirin EC] 81 mg PO DAILY 10/21/16 12/28/16 History ALPRAZolam [Alprazolam] 0.25 mg PO HS 12/28/16 12/28/16 History Sodium Bicarbonate Tab 650 mg PO AC-BID 12/28/16 12/28/16 History Allergies Allergy/AdvReac Type Severity Reaction Status Date / Time Penicillins Allergy Rash/Hives Verified 12/28/16 16:44 Physical Exam Vitals: Vital Signs Temp Pulse Pulse Pulse Resp BP BP 12/29/16 11:26 78 14 12/29/16 10:24 74 157/89 12/29/16 08:11 78 14 12/29/16 08:01 78 14 12/29/16 07:45 20 12/29/16 07:00 98.1 F 77 20 203/98 12/28/16 23:22 72 12/28/16 23:12 72 12/28/16 22:17 98.8 F 79 18 158/68 12/28/16 18:44 80 18 167/73 Pulse Ox 12/29/16 11:26 12/29/16 10:24 12/29/16 08:11 12/29/16 08:01 98 12/29/16 07:45 12/29/16 07:00 97 12/28/16 23:22 12/28/16 23:12 12/28/16 22:17 99 12/28/16 18:44 98 Intake and Output 12/28/16 12/29/16 12/29/16 22:59 06:59 14:59 Intake Total 665 240 Balance 665 240 Intake: Intake, IV Titration 225 Amount Sodium Chloride 0.9% 1, 225 000 ml @ 75 mls/hr IV . [id number] [facility] Rx#:[id number] Oral 440 240 Other: Voiding Method Toilet Toilet # Voids 1 1 Weight 75.296 kg Patient Weight 12/30/16 06:59 Weight 75.296 kg Results - Lab Results Most recent lab results Calcium 7.7 mg/dL (8.4-10.2) L 12/29/16 07:34 Phosphorus 6.9 mg/dL (2.5-4.5) H 12/28/16 16:27 Magnesium 2.0 mg/dL (1.6-2.3) 12/28/16 16:27 12/28/16 16:27 12/29/16 07:34 Assessment and Plan Plan: Assessment: #1. Chronic kidney disease stage V secondary to diabetic kidney disease with severe interstitial fibrosis and tubular atrophy noted on renal biopsy done on June 2016. Patient did not follow-up as an outpatient after her biopsy. #2. Insulin-dependent diabetes mellitus. #3. Metabolic acidosis secondary to chronic kidney disease. #4. Chronic kidney disease mineral bone disease. #5. Pyuria. Urine culture pending. Plan: Maintain normal saline to be run at 75 mL an hour. Start PhosLo 667 mg 3 times a day with meals. I discussed with her the need to initiate renal replacement therapy at this time. She is agreeable. Consult vascular surgery for dialysis catheter placement. Will schedule for first treatment of hemodialysis tomorrow with low blood flows and 2 hour duration. Will get community case manager on board to help facilitate outpatient hemodialysis. Thank you for the consultation. I will continue to follow the patient with you during her hospital stay.
[2016-12-29] MEDS: CALCIUM ACETATE 667 MG CAP PO SCH ×2 (12:37→17:12)
[2016-12-29 13:19] VITALS: BMI 31.4
[2016-12-29 14:48] LABS: Partial Thromboplastin Time 22.4 sec (22.0-30.0); Prothrombin Time 10.1 sec (9.0-12.0)
[2016-12-29 16:47] LABS: Hepatitis B Surface Ag Index 0.05
[2016-12-29 16:53] LABS: Hepatitis B Core IgM Index 0.02
[2016-12-29] MEDS ORDERED: amLODIPine 5 MG TAB PO STA (16:56)
[2016-12-29 17:04] LABS: Hepatitis C Virus IgG Index 0.03
[2016-12-29 17:12] LABS: Hepatitis C Virus IgG Ab Negative (Negative)
--- NOTE | 2016-12-29 20:14 | PN ---
DATE OF SERVICE: 12/29/2016 PRESENTING COMPLAINT: Weak and tired. INTERVAL HISTORY: This is a patient admitted with acute renal failure felt to be acute tubular necrosis, acute UTI and acute COPD exacerbation. Patient's breathing is a shade better. Patient is probably going for a dialysis catheter today and subsequent hemodialysis. Blood pressure is running high, feeling tired. Review of systems done for constitutional, cardiovascular, GI, pulmonary; relevant findings as above. Current medications are reviewed that include: 1. IV ceftriaxone. 2. DuoNeb. 3. IV saline. On examination, temperature 98.1, pulse 97, respirations 20, blood pressure 203/98, pulse ox 97% on room air. GENERAL APPEARANCE: Lying in bed, tired-appearing. EYES: Pupils equal. Conjunctivae normal. NECK: JVD not raised. Mass not palpable. RESPIRATORY: Effort increased. LUNGS: Diminished breath sounds. Prolonged expiration. Decreased wheezing. CARDIOVASCULAR: First and second sounds normal. No edema. ABDOMEN: Soft, nontender. Liver and spleen not palpable. PSYCHIATRY: Alert and oriented x3. Mood and affect slightly anxious-appearing. INVESTIGATIONS: Potassium 4.7, BUN 39, creatinine 6.52. Urine culture is pending. ASSESSMENT: 1. Acute renal failure, could be acute tubular necrosis. Element of prerenal present on admission, worsening. 2. Acute urinary tract infection, present on admission. 3. Acute chronic obstructive pulmonary disease exacerbation, present at admission in a smoker, which she had improvement. 4. Chronic nicotine dependence. Patient an active cigarette smoker. 5. Coronary artery disease with prior history of stent and coronary artery bypass. 6. Diabetes mellitus type 2, not on any medications. 7. Hyperlipidemia. 8. Essential hypertension, urgent/uncontrolled. 9. Primary osteoarthritis of multiple joints, bilateral. 10. Chronic kidney stage 3 from diabetic nephropathy and hypertensive nephrosclerosis. PLAN: Continue with current medication and treatment plan, including IV antibiotics, fluids, bicarb. Patient is going to get a dialysis catheter placed today. Patient did get 5 mg Norvasc earlier today. Will give another 5 mg today and increase the dose to 10 mg started morning. Again, patient advised against smoking.
[2016-12-29] MEDS: ALPRAZolam 0.25 MG TAB PO SCH (21:13)
[2016-12-30] MEDS: IPRATROPIUM-ALBUTEROL 3 ML NEB INHALATION SCH ×6 (00:16→20:41)
[2016-12-30] MEDS ORDERED: ONDANSETRON 4 MG/2 ML VIAL IVP PRN (04:14)
[2016-12-30 07:38] LABS: Glucose,Whole Blood 120 mg/dL (75-99)
[2016-12-30] MEDS: traMADol 50 MG TAB PO PRN ×2 (08:29→20:50)
[2016-12-30] MEDS: amLODIPine 10 MG TAB PO SCH (08:30)
[2016-12-30] MEDS: METOPROLOL TARTRATE 25 MG TAB PO SCH ×2 (08:30→21:53)
[2016-12-30] MEDS: predniSONE 20 MG TAB PO SCH (08:30)
[2016-12-30] MEDS: ISOSORBIDE MONONITRATE ER 60 MG TAB.ER.24H PO SCH (08:31)
[2016-12-30] MEDS: CITALOPRAM HYDROBROMIDE 20 MG TAB PO SCH (08:31)
[2016-12-30] MEDS: SODIUM CHLORIDE 0.9% 1,000 ML IV SCH (08:33)
[2016-12-30] MEDS: BUDESONIDE 1 MG/2 ML NEBU INHALATION SCH ×2 (08:41→20:41)
[2016-12-30] MEDS: CALCIUM ACETATE 667 MG CAP PO SCH ×3 (09:00→18:22)
[2016-12-30] MEDS: ATORVASTATIN 80 MG TAB PO SCH (09:00)
[2016-12-30] MEDS: SODIUM BICARBONATE TAB 650 MG TAB PO SCH ×2 (09:00→18:22)
[2016-12-30] MEDS: CLOPIDOGREL 75 MG TAB PO SCH (09:00)
[2016-12-30] MEDS: CHOLESTYRAMINE (WITH SUGAR) 4 GM PACKET PO SCH ×3 (09:00→18:22)
[2016-12-30 11:44] LABS: Glucose,Whole Blood 103 mg/dL (75-99)
--- NOTE | 2016-12-30 12:46 | PN ---
DATE OF SERVICE: 12/30/2016 PRESENTING COMPLAINT: Weak and tired. INTERVAL HISTORY: This is a 61-year-old female admitted with acute renal failure, felt to be as a result of acute tubular necrosis, acute UTI and acute COPD exacerbation. Today, patient's breathing is somewhat better. Patient is going to go for a dialysis catheter placement today and subsequent hemodialysis. Blood pressure continues to run high. Patient feels tired. Review of systems done for constitutional, cardiovascular, GI, and pulmonary; relevant findings as above. CURRENT MEDICATIONS: IV ceftriaxone, DuoNeb, IV saline. PHYSICAL EXAM: VITAL SIGNS: Temperature 98.3, pulse 87, respiratory rate 18, blood pressure 198/88, oxygen saturation 96% on room air. GENERAL APPEARANCE: Lying in bed, patient appears tired. EYES: Pupils equal. Conjunctivae are normal. NECK: JVD not raised. Mass not palpable. Respiratory effort increased. LUNGS: Diminished breath sounds bilaterally, prolonged expiration. Decreased wheezing. CARDIOVASCULAR: S1, S2 sounds normal. No edema noted. ABDOMEN: Soft, nontender. Liver and spleen not palpable. PSYCHIATRIC: Alert and oriented x3. Mood and affect normal to flat-appearing. INVESTIGATIONS: Blood glucose 120. ASSESSMENT: 1. Acute renal failure, could be acute tubular necrosis. Element of prerenal, present on admission, worsening. 2. Acute urinary tract infection, present on admission. 3. Acute chronic obstructive pulmonary disease exacerbation present on admission in a smoker for which she had improvement. 4. Chronic nicotine dependence. Patient is an active cigarette smoker. 5. Coronary artery disease with prior history of stent and coronary artery bypass. 6. Diabetes mellitus type 2, not on any medications. 7. Hyperlipidemia. 8. Essential hypertension, urgent/uncontrolled. 9. Primary osteoarthritis of multiple joints, bilateral. 10. Chronic kidney stage III from diabetic nephropathy and hypertensive nephrosclerosis. PLAN: Continue with current medication and treatment plan including IV antibiotics, fluids and sodium bicarb. Patient will get her dialysis catheter placed today. Norvasc increased to 10 mg for today. Discussed potential discharge plan if appropriate, possibly after dialysis. Will continue to monitor. Patient was seen and examined by him SLATE ROOFER, Selene Bowen and all elements of the case discussed with attending, Dr. Carr.
[2016-12-30] MEDS ORDERED: fentaNYL (PF) 50 MCG/ML 2 ML AMP ONE (13:21)
--- NOTE | 2016-12-30 13:22 | P.GSCN ---
History of Present Illness History of present illness: 60 grams, subchondral failure, history of diabetes, history of hypertension, post coronary artery bypass I was consulted for placement of a dialysis catheter. And 6.3 Surgical history patient had a coronary artery bypass graft and in the past patient also had a tubal ligation in the past personal history history of smoking continue to smoke Neck examination neck is supple no bruit appreciated Chest clear first and second sound normal Abdomen soft nontender brachial radial and femoral pulses are present Plan is placement of a dialysis catheter risk and complication discussed Past Medical History Past Medical History: Coronary Artery Disease (CAD), COPD, Diabetes Mellitus, Deep Vein Thrombosis (DVT), Hyperlipidemia, Hypertension, Osteoarthritis (OA), Renal Disease Additional Past Medical History / Comment(s): right leg blood clot post CABG, CATARACTS, SINUS PROBLEMS. STATED "WT DOWN FROM 258 TO 166 OVER PAST YEAR STATED D/T INTERMITTENT N/V/D. CURRNETLY NO PRONLEMS W/DIARRHEA" Last Myocardial Infarction Date:: August 2009 History of Any Multi-Drug Resistant Organisms: None Reported Past Surgical History: Section, Coronary Bypass/CABG, Heart Catheterization With Stent, Tubal Ligation Additional Past Surgical History / Comment(s): triple bypass. heart cath in august 2009 at [facility] in [place]. "stent in right groin" RT KIDNEY BX. 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 Her adult daughter who is 35 lives with her.LIVES IN SINGLE LEVEL HOME THAT HAS 1 STEP, CANE, GLUCOMETER. Ongoing tobacco smoker from her teenage years. Denies significant alcohol or recreational drug use. No experience. No travel history. No animals in the home at this point in time. His move back to [place] after many years living [facility], she would call this home. Smoking Status: Current every day smoker Past Alcohol Use History: None Reported Additional Past Alcohol Use History / Comment(s): STARTED SMOKING AT AGE 19- QUIT WHEN WITH DAUGHTER THEN RESTARTED SMOKES 10-15 CIGr Past Drug Use History: None Reported - Past Family History Father Family Medical History: COPD, Hypertension, Myocardial Infarction ([place]) Mother Family Medical History: Cancer, Myocardial Infarction (OR) Additional Family Medical History / Comment(s): brain and lung cancer Sister(s) Family Medical History: Cancer, Diabetes Mellitus, Myocardial Infarction (OR) Additional Family Medical History / Comment(s): heart cath with stent Medications and Allergies Home Medications Medication Instructions Recorded Confirmed Type Citalopram Hydrobromide [CeleXA] 40 mg PO DAILY 01/28/15 12/28/16 History Isosorbide Mononitrate ER [Imdur] 60 mg PO DAILY 01/28/15 12/28/16 History amLODIPine BESYLATE [Norvasc] 5 mg PO DAILY 01/28/15 12/28/16 History traMADol HCl [Ultram] 50 mg PO Q4H PRN 01/28/15 12/28/16 History Fluticasone Nasal [place] [Flonase 2 spray EA NOSTRIL DAILY PRN 05/25/15 11/18/16 History Nasal [place]] Aspirin [Adult Low Dose Aspirin EC] 81 mg PO DAILY 10/21/16 12/28/16 History ALPRAZolam [Alprazolam] 0.25 mg PO HS 12/28/16 12/28/16 History Sodium Bicarbonate Tab 650 mg PO AC-BID 12/28/16 12/28/16 History Allergies Allergy/AdvReac Type Severity Reaction Status Date / Time Penicillins Allergy Rash/Hives Verified 12/28/16 16:44 Surgical - Exam Vital Signs Temp Pulse Resp BP Pulse Ox 100.1 F H 74 18 198/90 96 12/28/16 16:10 12/28/16 16:10 12/28/16 16:10 12/28/16 16:10 12/28/16 16:10 Results - Labs 12/28/16 16:27 12/29/16 07:34 Abnormal Lab Results - Last 24 Hours (Table) 12/30/16 12/30/16 Range/Units 07:37 11:42 POC Glucose (mg/dL) 120 H 103 H (75-99) mg/dL
[2016-12-30] MEDS ORDERED: fentaNYL (PF) 50 MCG/ML 2 ML AMP IV ONE (13:25)
[2016-12-30] MEDS ORDERED: LIDOCAINE 2% INJ 20 MG/ML SQ ONE ×2 (13:33→13:36)
[2016-12-30] MEDS ORDERED: IV FLUID CONTINUATION 450 ML IV ONE (13:35)
--- NOTE | 2016-12-30 13:48 | P.PCN ---
Description of Procedure: Diagnoses preop acute chronic renal failure Ultrasound-guided 28 same dialysis catheter placed a right internal jugular vein Procedure patient brought to the catheter right side of the neck and chest was prepped and draped applied instrument 1% lidocaine for infected ultrasound- guided micropuncture introduced to the right intrajugular vein for filter dilator advanced on the top of the guidewire after that we created a tunnel through the terminal be brought 28 same dialysis catheter after that we passed a regular guidewire which was parked in the inferior vena cava dilator was advanced on the top of the guidewire then sheath was advanced through the sheath we introduced dialysis catheter sheath was removed tip of the catheter was a superior vena cava and atrium flushed with heparin saline incision was closed with Vicryl and nylon dressing applied patient tolerated the procedure well
--- NOTE | 2016-12-30 14:31 | IR ---
EXAMINATION TYPE: IR cvc insert central tunneled DATE OF EXAM: 12/30/2016 2:26 PM COMPARISON: NONE HISTORY: Catheter insertion. Fluoroscopy was provided to the referring clinician. 0.2 minutes of fluoroscopy time.
--- NOTE | 2016-12-30 14:52 | XR ---
EXAMINATION TYPE: XR chest 2V DATE OF EXAM: 12/30/2016 2:46 PM HISTORY: Check Dialysis cath placement. REFERENCE: Previous study dated 12/28/2016. FINDINGS: There has been a midline sternotomy. There has been interval placement of a large-bore, suzi ble-lumen dialysis catheter. The proximal portion is at the cavoatrial junction and the distal portio n is within the right atrium. Lung volumes are prominent. The heart is mildly enlarged. There is vascular congestion without hector edema. Pleural spaces are clear. IMPRESSION: 1. I DO NOT SEE A POST CATHETER PLACEMENT COMPLICATION. 2. MILD CARDIOMEGALY. 3. VASCULAR CONGESTION WITHOUT HECTOR EDEMA.
[2016-12-30 17:32] LABS: Glucose,Whole Blood 157 mg/dL (75-99)
--- NOTE | 2016-12-30 19:37 | PN ---
Patient is seen for followup for end-stage renal disease. She is scheduled for Perm-A-Cath placement today. Will have her first treatment of hemodialysis today. Patient did not come for regular outpatient followup. She presented to the hospital with generalized weakness. Her creatinine was 6.3 mg/dL, estimated GFR at 6 mL/minute. On examination today, blood pressure is 141/66, heart rate 80 per minute. She is afebrile. EXAMINATION OF THE HEART: S1 and S2. EXAMINATION OF THE LUNGS: Bilateral breath sounds are heard. ABDOMEN: Soft, nontender. Examination of lower extremities shows no significant edema. [employer] exam is grossly intact. Labs show creatinine 6.52, sodium 139, potassium 4.7. CO2 is 19. ASSESSMENT: 1. End-stage renal disease secondary to biopsy-proven diabetic nephropathy. Patient will be starting hemodialysis. I have discussed with her regarding need for an access in the arm and option of peritoneal dialysis as well down the road. She will be dialyzed again tomorrow. 2. Uremia. 3. Metabolic acidosis. Expect improvement with dialysis. 4. Type 2 diabetes. PLAN: Hemodialysis today as well as in a.m. Patient will have vein mapping done prior to initiating dialysis as outpatient.
[2016-12-30 20:36] LABS: Glucose,Whole Blood 135 mg/dL (75-99)
[2016-12-30] MEDS ORDERED: IPRATROPIUM-ALBUTEROL 3 ML NEB INHALATION PRN (20:42)
[2016-12-30] MEDS: ALPRAZolam 0.25 MG TAB PO SCH (20:50)
[2016-12-31] MEDS: CALCIUM ACETATE 667 MG CAP PO SCH ×3 (01:00→19:34)
[2016-12-31] MEDS: SODIUM CHLORIDE 0.9% 1,000 ML IV SCH ×2 (05:59→19:50)
[2016-12-31 06:58] LABS: Glucose,Whole Blood 69 mg/dL (75-99)
[2016-12-31 07:19] LABS: Glucose,Whole Blood 76 mg/dL (75-99)
[2016-12-31] MEDS: SODIUM BICARBONATE TAB 650 MG TAB PO SCH ×2 (07:38→15:38)
[2016-12-31] MEDS: CITALOPRAM HYDROBROMIDE 20 MG TAB PO SCH (07:45)
[2016-12-31] MEDS: METOPROLOL TARTRATE 25 MG TAB PO SCH (07:45)
[2016-12-31] MEDS: predniSONE 20 MG TAB PO SCH (07:45)
[2016-12-31] MEDS: ISOSORBIDE MONONITRATE ER 60 MG TAB.ER.24H PO SCH (07:46)
[2016-12-31] MEDS: amLODIPine 10 MG TAB PO SCH (07:46)
[2016-12-31] MEDS: ATORVASTATIN 80 MG TAB PO SCH (07:46)
[2016-12-31] MEDS: CLOPIDOGREL 75 MG TAB PO SCH (07:46)
[2016-12-31] MEDS: BUDESONIDE 1 MG/2 ML NEBU INHALATION SCH ×2 (08:10→18:46)
[2016-12-31] MEDS: IPRATROPIUM-ALBUTEROL 3 ML NEB INHALATION SCH ×4 (08:11→18:46)
[2016-12-31] MEDS: CHOLESTYRAMINE (WITH SUGAR) 4 GM PACKET PO SCH ×3 (10:03→17:21)
[2016-12-31] MEDS: traMADol 50 MG TAB PO PRN ×2 (10:14→19:38)
[2016-12-31 11:36] LABS: Glucose,Whole Blood 106 mg/dL (75-99)
[2016-12-31 12:29] LABS: Calcium 7.5 mg/dL (8.4-10.2)
--- NOTE | 2016-12-31 15:30 | PN ---
Patient is seen for follow-up for end-stage renal disease. She had her first treatment yesterday and patient is currently being connected to start her second treatment of hemodialysis. She states she feels fairly well. No significant complaints. On examination, blood pressure was high at 173/76, heart rate 82 per minute. The patient is afebrile. Examination of the heart: S1 and S2. Examination of the lungs: Bilateral breath sounds are heard. Abdomen is soft, nontender. Examination of lower extremities shows no evidence of edema. HOME CHILD CARE PROVIDER exam is grossly intact. Labs show sodium 139, potassium 4.0, calcium 7.5 mg/dL. ASSESSMENT: 1. End-stage renal disease secondary to diabetic nephropathy and nephrosclerosis, currently receiving second treatment of hemodialysis. Patient needs to be scheduled as outpatient for outpatient hemodialysis. We will discuss further options regarding PD as outpatient. Patient will also need vein mapping to be done prior to starting outpatient hemodialysis. 2. Hypertension, expect improvement post dialysis. Continue current medications. 3. Metabolic acidosis. I will discontinue the sodium bicarb as patient is now on dialysis. 4. Chronic kidney disease bone mineral disorder, maintained on PhosLo. PLAN: Discontinue sodium bicarb, discontinue IV fluids. Patient needs to have her vein mapping done as outpatient prior to starting her first outpatient dialysis.
--- NOTE | 2016-12-31 16:19 | PN ---
ATTENDING NOTE: This patient was seen and examined by me yesterday on 12/30/16. The patient presented with acute renal failure, acute urinary tract infection and COPD exacerbation. The patient today had a hemodialysis catheter placed by Dr. Muse. Tired, lying in bed. Breathing is a bit better. Patient is hungry. On examination, LUNGS: Slightly decreased breath sounds. Diffuse wheezing. CARDIOVASCULAR: First and second seconds normal. Dialysis catheter in place. PSYCH: Alert and oriented x3. INVESTIGATIONS: Accu-Cheks are noted. ASSESSMENT: 1. Acute renal failure versus acute tubular necrosis, now has hemodialysis catheter in place. 2. Acute urinary tract infection. 3. Acute chronic obstructive pulmonary disease exacerbation, improving. PLAN: At this point the patient will get hemodialysis possibly today. Patient's blood pressure is better controlled. I also reviewed the note of my nurse practitioner, Ms. Bowen and agree with the same and discussed the care with her.
[2016-12-31 17:08] LABS: Glucose,Whole Blood 135 mg/dL (75-99)
--- NOTE | 2016-12-31 19:46 | PN ---
DATE OF SERVICE: 12/31/2016 PRESENTING COMPLAINT: Weak and tired. INTERVAL HISTORY: This is a 61-year-old female admitted with acute renal failure, felt to be as a result of acute tubular necrosis, acute UTI and acute COPD exacerbation. Patient is status post right chest wall PermCath placement and received first hemodialysis on 12/30/2016. Today patient appears much better; sitting up in bed, looking alert, states she feels well. Review of systems done for constitutional, cardiovascular, GI, and pulmonary; relevant findings as above. CURRENT MEDICATIONS: 1. IV ceftriaxone. 2. DuoNeb. 3. IV saline. PHYSICAL EXAM: VITAL SIGNS: Temperature 98.4 pulse 74, respirations 18, blood pressure 173/76, oxygen saturation 91% on room air. GENERAL APPEARANCE: Patient lying in bed looking comfortable, awaiting this morning's hemodialysis treatment. In good spirits, would like to go home. EYES: Pupils equal. Conjunctivae normal. NECK: JVD not raised. Mass not palpable. RESPIRATORY: Effort decreased. LUNGS: Diminished breath sounds bilaterally. Prolonged expiration. Decreased wheezing. CARDIOVASCULAR: First and second sounds noted. No edema noted. ABDOMEN: Soft, nontender. Liver and spleen not palpable. PSYCHIATRIC: Alert and oriented x3. Mood and affect normal. INVESTIGATIONS: Blood glucose 106. ASSESSMENT: 1. Acute renal failure. Could be acute tubular necrosis. Element of prerenal, present on admission, worsening. 2. Acute urinary tract infection, present on admission. 3. Acute chronic obstructive pulmonary disease exacerbation, present on admission in a nonsmoker for which she had improvement. 4. Nicotine dependence. Patient is an active cigarette smoker. 5. Coronary artery disease with prior history of stent and coronary artery bypass. 6. Diabetes mellitus type 2, not on any medications. 7. Hyperlipidemia. 8. Essential hypertension; urgent, uncontrolled. 9. Primary osteoarthritis, multiple joints, bilateral. 10. Chronic kidney disease stage 3 from diabetic nephropathy and hypertensive nephrosclerosis. PLAN: Continue current medication and treatment plan, including IV antibiotics, fluids, sodium bicarb. Patient received her dialysis catheter placement on right chest wall and has received first round of hemodialysis as well as a second round on today. Norvasc increased to 10 mg. As a part of patient's discharge planning, need to include hemodialysis placement. Will talk with Case Management regarding these needs. Will follow. Patient seen and examined by SANKET Bowen and all elements of the case discussed with attending, Dr. Carr. I performed a history and physical examination of this patient and discussed the same with the dictator. I agree with the dictator's note. Any additional findings/opinions, etc. will be noted.
[2016-12-31 19:56] LABS: Glucose,Whole Blood 171 mg/dL (75-99)
[2016-12-31] MEDS ORDERED: ALPRAZolam 0.25 MG TAB ONE (21:00)
[2016-12-31] MEDS ORDERED: METOPROLOL TARTRATE 25 MG TAB ONE (21:00)
[2017-01-01 07:07] LABS: Glucose,Whole Blood 78 mg/dL (75-99)
[2017-01-01] MEDS: BUDESONIDE 1 MG/2 ML NEBU INHALATION SCH ×2 (07:28→19:47)
[2017-01-01] MEDS: IPRATROPIUM-ALBUTEROL 3 ML NEB INHALATION SCH ×4 (07:29→19:46)
[2017-01-01] MEDS: METOPROLOL TARTRATE 25 MG TAB PO SCH ×3 (08:04→21:54)
[2017-01-01] MEDS: ALPRAZolam 0.25 MG TAB PO SCH ×2 (08:05→21:53)
[2017-01-01] MEDS: CALCIUM ACETATE 667 MG CAP PO SCH ×3 (08:06→21:54)
[2017-01-01] MEDS: predniSONE 20 MG TAB PO SCH (08:06)
[2017-01-01] MEDS: CITALOPRAM HYDROBROMIDE 20 MG TAB PO SCH (08:06)
[2017-01-01] MEDS: ISOSORBIDE MONONITRATE ER 60 MG TAB.ER.24H PO SCH (08:06)
[2017-01-01] MEDS: ATORVASTATIN 80 MG TAB PO SCH (08:06)
[2017-01-01] MEDS: amLODIPine 10 MG TAB PO SCH (08:06)
[2017-01-01 08:34] LABS: CH 30.8; CHCM 32.5; HCT 29.1 % (34.0-46.0); MCH 30.8 pg (25.0-35.0); MCHC 32.3 g/dL (31.0-37.0); MCV 95.4 fL (80.0-100.0); Mean Platelet Volume 6.4; RBC 3.05 m/uL (3.80-5.40); RDW 13.5 % (11.5-15.5); WBC 15.1 k/uL (3.8-10.6)
[2017-01-01] MEDS: CLOPIDOGREL 75 MG TAB PO SCH (08:35)
[2017-01-01 08:49] LABS: HGB 9.4 gm/dL (11.4-16.0)
[2017-01-01 08:51] LABS: Calcium 6.9 mg/dL (8.4-10.2); Potassium 3.1 mmol/L (3.5-5.1)
[2017-01-01] MEDS: CHOLESTYRAMINE (WITH SUGAR) 4 GM PACKET PO SCH ×3 (10:00→21:54)
[2017-01-01] MEDS ORDERED: LACTULOSE 20 GM/30 ML CUP PO ONE (10:14)
--- NOTE | 2017-01-01 10:38 | PN ---
DATE OF SERVICE: 12/31/2016 ATTENDING NOTE: This patient seen and examined by me. I discussed the care with my nurse practitioner, Ms. Bowen. Patient had a hemodialysis catheter placed yesterday and had her first hemodialysis yesterday and second one this morning. Breathing is better. Patient is hungry, waiting for her lunch. On examination, pulse 78, respirations 18, blood pressure 150/79, pulse ox 94% on room air. GENERAL APPEARANCE: Lying in bed. EYES: Pupils equal. Conjunctivae normal. NECK: JVD not raised. Mass not palpable. RESPIRATORY: Effort increased. LUNGS: Improved air entry, mild wheezing. CARDIOVASCULAR: First and second sounds normal. No edema. ABDOMEN: Soft, nontender. PSYCH: Alert and oriented x3. Mood and affect normal. INVESTIGATIONS: BUN 36, creatinine 4.7. ASSESSMENT: 1. Acute renal failure, probably acute tubular necrosis now requiring renal replacement therapy after having dialysis catheter placed. 2. Acute urinary tract infection. 3. Acute chronic obstructive pulmonary disease exacerbation in a smoker, improving. PLAN: Care was discussed with the patient. Follow electrolytes and labs closely. Continue with hemodialysis. Blood pressure is better controlled.
[2017-01-01 11:28] LABS: Glucose,Whole Blood 102 mg/dL (75-99)
[2017-01-01 16:55] LABS: Glucose,Whole Blood 235 mg/dL (75-99)
--- NOTE | 2017-01-01 18:03 | PN ---
Patient is seen for follow-up for end-stage renal disease. She has had 2 treatments of dialysis. She states overall she feels better. Blood pressure is 142/65, heart rate 66 per minute. The patient is afebrile. Examination of the heart S1 and S2. Examination of the lungs: Bilateral breath sounds are heard. Abdomen is soft, nontender. Examination of lower extremities shows no significant edema. Labs show sodium 139, potassium 3.1, BUN 26, serum creatinine 3.96. Hemoglobin 9.4 g/dL. ASSESSMENT: 1. End-stage renal disease on hemodialysis. Patient has had 2 treatments. She just started dialysis this admission. She will need outpatient placement and will need to have the venous mapping done prior to her first dialysis treatment as outpatient. 2. Metabolic bone disease, maintained on PhosLo. 3. Pyuria with urine culture showing no growth. Patient is maintained on Rocephin. PLAN: Discharge planning for outpatient hemodialysis chair time.
[2017-01-01 20:58] LABS: Glucose,Whole Blood 237 mg/dL (75-99)
[2017-01-01] MEDS: traMADol 50 MG TAB PO PRN (21:53)
[2017-01-02 07:03] LABS: Glucose,Whole Blood 84 mg/dL (75-99)
[2017-01-02] MEDS: BUDESONIDE 1 MG/2 ML NEBU INHALATION SCH (07:33)
[2017-01-02] MEDS: IPRATROPIUM-ALBUTEROL 3 ML NEB INHALATION SCH ×3 (07:33→15:31)
[2017-01-02] MEDS: CALCIUM ACETATE 667 MG CAP PO SCH ×2 (07:51→12:48)
[2017-01-02] MEDS: ALPRAZolam 0.25 MG TAB PO SCH (09:03)
[2017-01-02] MEDS: traMADol 50 MG TAB PO PRN (09:03)
[2017-01-02] MEDS: CLOPIDOGREL 75 MG TAB PO SCH (09:04)
[2017-01-02] MEDS: ATORVASTATIN 80 MG TAB PO SCH (09:04)
[2017-01-02] MEDS: METOPROLOL TARTRATE 25 MG TAB PO SCH (09:04)
[2017-01-02] MEDS: CITALOPRAM HYDROBROMIDE 20 MG TAB PO SCH (09:04)
[2017-01-02] MEDS: predniSONE 20 MG TAB PO SCH (09:04)
[2017-01-02] MEDS: ISOSORBIDE MONONITRATE ER 60 MG TAB.ER.24H PO SCH (09:05)
[2017-01-02] MEDS: amLODIPine 10 MG TAB PO SCH (09:05)
[2017-01-02] MEDS: CHOLESTYRAMINE (WITH SUGAR) 4 GM PACKET PO SCH (10:00)
--- NOTE | 2017-01-02 11:00 | PN ---
DATE OF SERVICE: 01/01/2017 PRESENTING COMPLAINT: Weak and tired. This is a 61-year-old female admitted with acute renal failure felt to be as a result of acute tubular necrosis, acute UTI and an acute COPD exacerbation. Patient is status post right chest wall and Permacath placement and has received 2 rounds of hemodialysis since placement. Today, appears much better. Anxious to go home. Sitting up in bed looking, alert. Patient states she feels much better than she did when she arrived. Review of systems done for constitutional, cardiovascular, GI, pulmonary; relevant findings as above. CURRENT MEDICATIONS: IV ceftriaxone, DuoNeb, IV saline. PHYSICAL EXAM: VITAL SIGNS: Temperature 98.9, pulse 66, respiratory rate 18, blood pressure 142/65, oxygen saturation 91% on room air. GENERAL APPEARANCE: Patient is awake and alert, able to answer questions. No acute distress noted or voiced. EYES: Pupils equal. Conjunctivae normal. NECK: JVD not raised. Mass not palpable. LUNGS: Diminished bases. Clear to auscultation throughout. Respiratory effort normal, unlabored. CARDIOVASCULAR: First and second sounds noted. No edema. ABDOMEN: Soft, nontender. Liver and spleen not palpable. PSYCHIATRY: Alert and oriented x3. Mood and affect ranges between flat and normal. INVESTIGATIONS: White blood cell count 15.1, hemoglobin 9.4, platelet count 349. Sodium 139, potassium 3.1 ASSESSMENT: 1. Acute renal failure could be acute tubular necrosis. Element of prerenal present on admission worsening. 2. Acute urinary tract infection, present on admission, improving. 3. Acute chronic obstructive pulmonary disease exacerbation, present on admission in a nonsmoker for which she has had improvement. 4. Nicotine dependence. Patient is an active cigarette smoker. 5. Coronary artery disease with prior history of stent and coronary artery bypass. 6. Diabetes mellitus type 2, not on any medications. 7. Hyperlipidemia. 8. Essential hypertension urgent, uncontrolled. 9. Primary osteoarthritis of multiple joints, bilateral. 10. Chronic kidney disease, stage III from diabetic nephropathy and hypertensive nephrosclerosis. PLAN: Continue current medication and treatment plan including IV antibiotics and fluids. Patient has received 2 rounds of dialysis since her catheter placement on her right chest wall. Norvasc was increased to gain greater control over blood pressure. Patient requires placement for outpatient dialysis treatment on a routine basis as well as venous mapping for fistula placement. Will follow. Patient seen and examined by nurse practitioner, Selene Bowen. All elements of the case were discussed with the attending, Dr. Carr.
[2017-01-02 11:26] LABS: Glucose,Whole Blood 117 mg/dL (75-99)
--- NOTE | 2017-01-02 12:05 | PN ---
DATE OF SERVICE: 01/01/2017 Attending note: Was seen and examined by me. I reviewed the note of my nurse practitioner, Ms. Bowen and discussed and seen with her. Patient was started on hemodialysis. Breathing is better. Family is at the bedside. Tolerating a diet. On exam, lungs improved air entry. CARDIOVASCULAR: First and second sounds normal. ABDOMEN: Soft, nontender. Right chest wall has hemodialysis catheter. INVESTIGATIONS: White count 15.1, hemoglobin 9.4. Potassium 3.1. Accu-Cheks noted. ASSESSMENT: 1. Acute renal failure from probably acute tubular necrosis, on renal replacement therapy started on dialysis 2. Acute urinary tract infection. 3. Acute chronic obstructive pulmonary disease exacerbation, improving. PLAN: Continue current medication and treatment plan. Hopefully try to get the patient out by tomorrow. Will discontinue patient's antibiotics.
[2017-01-02] MEDS ORDERED: PRAZOSIN 1 MG CAP PO SCH (13:30)
--- NOTE | 2017-01-02 15:06 | PN ---
Patient is seen for follow-up for end-stage renal disease. She was dialyzed on Monday and Monday. She is scheduled for dialysis today waiting for outpatient placement. On examination, blood pressure is 168/62, heart rate 78 per minute. The patient is afebrile. Examination of the heart S1 and S2. Examination of the lungs: Bilateral breath sounds are heard. ABDOMEN: Soft, nontender. Examination of lower extremities shows edema 1+ bilaterally. CORRESPONDENCE CLERK exam is grossly intact. Labs show potassium 3.1 from yesterday, sodium 139. ASSESSMENT: 1. End-stage renal disease on hemodialysis on started this admission. Patient will have a third treatment today. We are waiting for outpatient placement. She does need to get it venous mapping done at Dr. Muse's office prior to starting her first dialysis treatment. 2. Volume overload. Will increase UF as tolerated with hemodialysis today. 3. Anemia of chronic disease. 4. Hypertension, partly volume sensitive. PLAN: Hemodialysis today. Schedule venous mapping at Dr. Muse's office prior to first dialysis as outpatient.
[2017-01-02 15:47] VITALS: BP 146/68; PULSE 73; RESP 16; TEMP 98.2
--- NOTE | 2017-01-04 13:44 | DS ---
DATE OF ADMISSION: 12/28/2016 DATE OF DISCHARGE: 01/02/2017 FINAL DIAGNOSES: 1. Acute renal failure, probably acute tubular necrosis. 2. Acute urinary tract infection, present on admission. 3. Acute chronic obstructive pulmonary disease exacerbation, present on admission in a smoker. 4. Chronic nicotine dependence. Patient is an active cigarette smoker. 5. Coronary artery disease with prior history of stent and coronary artery bypass. 6. Diabetes mellitus type 2, not on any medication. 7. Hyperlipidemia. 8. Essential hypertension, urgent, uncontrolled. 9. Primary osteoarthritis in multiple joints, bilateral. 10. Chronic kidney disease stage 3, from diabetic nephropathy and hypertensive nephrosclerosis. leading to end-stage. HOSPITAL COURSE: Patient presented weak and tired. Patient had a creatinine 6.31. Patient had a dialysis catheter placed by Dr. Muse and dialysis started. Also with COPD exacerbation, advised against smoking. Lungs are doing better at the time of discharge. Also treated for a UTI. On examination, LUNGS: Improved air entry. CARDIOVASCULAR: First and second sounds normal. Hemoglobin is 9.4. BUN 26, creatinine 3.96. CONSULTATIONS: Dr. Zimmer, Dr. Montalvo from nephrology; Dr. Muse from vascular surgery. DISCHARGE MEDICATIONS: 1. Celexa 40 mg p.o. daily. 2. Imdur ER 60 mg p.o. daily. 3. Ultram 50 mg q.4 p.r.n. 4. Flonase 2 sprays each nostril daily p.r.n. 5. Nitrostat 0.4 sublingual q.5 p.r.n. 6. Lipitor 80 mg p.o. daily. 7. Plavix 75 mg p.o. daily. 8. Lopressor 25 mg p.o. b.i.d. 9. Aspirin 81 mg p.o. daily. 10. Questran 4 g p.o. t.i.d. with meals. 11. Imodium 2 mg q.i.d. p.r.n. 12. Xanax 0.25 mg p.o. q.h.s. 13. Sodium bicarb 60 mg p.o. b.i.d. 14. Pulmicort 1 mg inhalation b.i.d. 15. PhosLo t.i.d. with meals. 16. DuoNeb t.i.d. 17. Minipress 2 mg p.o. t.i.d. 18. Amlodipine 10 mg p.o. daily. 19. Prednisone 20 mg a day for 4 days. Follow up with Dr. Montalvo on 01/12/2017. Follow up with Dr. Encarnacion on 01/09/2017. Patient to keep her hemodialysis schedule. Discharge planning more than 35 minutes.
== END 2017-01-02 16:49 | disposition home or self-care (01) | DRG 683 ==
LOC: EC 15:40 → 5MS5E 18:18
PROVIDERS: ADMIT Hospitalist; ATTEND Hospitalist
PROC: 02HV33Z Insertion of Infusion Device into Superior Vena Cava, Percutaneous Approach (ICD-10-PCS; principal; 2016-12-30 13:15)
PROC: B549ZZA Ultrasonography of Inferior Vena Cava, Guidance (ICD-10-PCS; 2016-12-30 13:15)
PROC: 5A1D60Z (ICD-10-PCS; 2016-12-30 13:15)
DX: N17.0 Acute kidney failure with tubular necrosis (principal); N39.0 Urinary tract infection, site not specified; E87.2 Acidosis; I12.0 Hypertensive chronic kidney disease with stage 5 chronic kidney disease or end stage renal disease; J44.1 Chronic obstructive pulmonary disease with (acute) exacerbation; N18.6 End stage renal disease; E11.21 Type 2 diabetes mellitus with diabetic nephropathy; E11.22 Type 2 diabetes mellitus with diabetic chronic kidney disease; E87.70 Fluid overload, unspecified; D63.8 Anemia in other chronic diseases classified elsewhere; I25.2 Old myocardial infarction; E78.5 Hyperlipidemia, unspecified; I25.10 Atherosclerotic heart disease of native coronary artery without angina pectoris; Z95.1 Presence of aortocoronary bypass graft; F17.210 Nicotine dependence, cigarettes, uncomplicated; Z86.718 Personal history of other venous thrombosis and embolism; Z95.5 Presence of coronary angioplasty implant and graft; Z99.2 Dependence on renal dialysis; M19.91 Primary osteoarthritis, unspecified site; Z79.02 Long term (current) use of antithrombotics/antiplatelets; Z79.82 Long term (current) use of aspirin; Z79.899 Other long term (current) drug therapy
CPT/HCPCS: 36415; 36556; 71020; 76937; 77001; 80048; 80053; 80074; 81001; 83605; 83735; 84100; 85025; 85027; 85610; 85730; 87040; 87086; 90935; 94640; 94760; 96361; 96365; 96375; 99285

== ENCOUNTER 2017-01-04 08:39 | Inpatient (IN) | payer MEDICARE, OTHER ==
[2017-01-04] MEDS ORDERED: SODIUM CHLORIDE 0.9% 1,000 ML IV STA (09:55)
--- NOTE | 2017-01-04 11:06 | ED ---
General Adult HPI - General Chief complaint: Recheck/Abnormal Lab/Rx Stated complaint: hallucinations Time Seen by Provider: 01/04/17 09:46 Source: patient, family, RN notes reviewed Mode of arrival: wheelchair Limitations: no limitations - History of Present Illness Initial comments: Patient's a 7-year-old female recently placed on dialysis who was just released from the hospital 2 days ago. States she was scheduled have dialysis yesterday morning but did not have it due to there was no physician ordered. She states that she woke up this morning and felt like she was hallucinating. She states she is seeing nurses and doctors in her bedroom. Daughter who lives with her states she went in the room and found her talking to them. She states she is still seeing them out this time while she is here in the hospital. She seeing people pick through the curtains. She states that she's never had any "real" hallucinations in the past. She does admit that she has had had a cough and some congestion and has a history of COPD. She does admit that she's had some swelling down to her legs. - Related Data Home Medications Medication Instructions Recorded Confirmed Citalopram Hydrobromide [CeleXA] 40 mg PO DAILY 01/28/15 01/04/17 Isosorbide Mononitrate ER [Imdur] 60 mg PO DAILY 01/28/15 01/04/17 traMADol HCl [Ultram] 50 mg PO Q4H PRN 01/28/15 01/04/17 Fluticasone Nasal [place] [Flonase 2 spray EA NOSTRIL DAILY PRN 05/25/15 01/04/17 Nasal [place]] Aspirin [Adult Low Dose Aspirin EC] 81 mg PO DAILY 10/21/16 01/04/17 ALPRAZolam [Alprazolam] 0.25 mg PO HS 12/28/16 01/04/17 Sodium Bicarbonate Tab 650 mg PO AC-BID 12/28/16 01/04/17 Previous Rx's Medication Instructions Recorded Nitroglycerin Sl Tabs [Nitrostat] 0.4 mg SUBLINGUAL Q5M PRN #25 tab 05/29/15 Atorvastatin [Lipitor] 80 mg PO DAILY #30 tab 06/10/15 Clopidogrel [Plavix] 75 mg PO DAILY #30 tab 06/10/15 Metoprolol Tartrate [Lopressor] 25 mg PO BID #60 tab 06/10/15 Cholestyramine (with Sugar) 4 gm PO TID BETWEEN MEALS #30 10/23/16 [Questran Packet] packet Loperamide [Imodium] 2 mg PO QID PRN #30 cap 10/23/16 Budesonide [Pulmicort] 1 mg INHALATION RT-BID #60 nebu 01/02/17 Calcium Acetate [PhosLo] 667 mg PO TID-W/MEALS #90 cap 01/02/17 Ipratropium-Albuterol Nebulize 3 ml INHALATION RT-TID #90 01/02/17 [Duoneb 0.5 mg-3 mg/3 ml Soln] ampul.neb Prazosin [Minipress] 2 mg PO TID #90 cap 01/02/17 amLODIPine [Norvasc] 10 mg PO DAILY #30 tab 01/02/17 predniSONE 20 mg PO DAILY #4 tab 01/02/17 Allergies Allergy/AdvReac Type Severity Reaction Status Date / Time Penicillins Allergy Rash/Hives Verified 01/04/17 09:22 garlic AdvReac Vomiting Verified 01/04/17 09:22 Review of Systems ROS Statement: Those systems with pertinent positive or pertinent negative responses have been documented in the HPI. ROS Other: All systems not noted in ROS Statement are negative. Past Medical History Past Medical History: Coronary Artery Disease (CAD), COPD, Diabetes Mellitus, Deep Vein Thrombosis (DVT), Hyperlipidemia, Hypertension, Osteoarthritis (OA), Renal Disease Additional Past Medical History / Comment(s): right leg blood clot post CABG, CATARACTS, SINUS PROBLEMS. STATED "WT DOWN FROM 258 TO 166 OVER PAST YEAR STATED D/T INTERMITTENT N/V/D. CURRNETLY NO PRONLEMS W/DIARRHEA" Last Myocardial Infarction Date:: August 2009 History of Any Multi-Drug Resistant Organisms: None Reported Past Surgical History: Section, Coronary Bypass/CABG, Heart Catheterization With Stent, Tubal Ligation Additional Past Surgical History / Comment(s): triple bypass. heart cath in august 2009 at [facility] in [place]. "stent in right groin" RT KIDNEY BX. EGD/COLONOSCOPY MULTIPLE POLYPS REMOVED Past Anesthesia/Blood Transfusion Reactions: No Reported Reaction, Motion Sickness Additional Past Anesthesia/Blood Transfusion Reaction / Comment(s): BLOOD TRANSFUSION A BABY, CLAUSTERPHOBIA Date of Last Stent Placement:: August 2009 Past Psychological History: No Psychological Hx Reported Additional Psychological History / Comment(s): Single, RETIRED/DISABILTY. USED TO WOERK A NURSE AID. Her adult daughter who is 35 lives with her.LIVES IN SINGLE LEVEL HOME THAT HAS 1 STEP, CANE, GLUCOMETER. Ongoing tobacco smoker from her teenage years. Denies significant alcohol or recreational drug use. No experience. No travel history. No animals in the home at this point in time. His move back to [place] after many years living in the [facility] of [facility], she would call this home. Smoking Status: Current every day smoker Past Alcohol Use History: None Reported Additional Past Alcohol Use History / Comment(s): STARTED SMOKING AT AGE 19- QUIT WHEN WITH DAUGHTER THEN RESTARTED SMOKES 10-15 CIGr Past Drug Use History: None Reported - Past Family History Father Family Medical History: COPD, Hypertension, Myocardial Infarction (DC) Mother Family Medical History: Cancer, Myocardial Infarction (DC) Additional Family Medical History / Comment(s): brain and lung cancer Sister(s) Family Medical History: Cancer, Diabetes Mellitus, Myocardial Infarction (DC) Additional Family Medical History / Comment(s): heart cath with stent General Exam Limitations: no limitations Course Vital Signs 01/04/17 01/04/17 01/04/17 08:41 10:04 11:45 Temperature 97.5 F L 98.3 F Pulse Rate 73 70 Respiratory 20 16 Rate Blood Pressure 200/81 189/82 183/84 O2 Sat by Pulse 98 97 Oximetry Medical Decision Making - Medical Decision Making Patient reexamined at this time shows no signs of distress though admits to having some hallucinations. She does admit that when she was a child she had some hallucinations. Patient's CT is negative. Patient's labs been reviewed does show elevated to kidney function. Does need dialysis. At this time case was discussed with attending physician Dr. Veronica did discuss case with admitting physician Dr. Carr. - Lab Data Result diagrams: 01/04/17 10:53 01/04/17 10:53 Lab Results 01/04/17 01/04/17 01/04/17 Range/Units 10:53 10:53 10:53 WBC 12.6 H (3.8-10.6) k/uL RBC 3.20 L (3.80-5.40) m/uL Hgb 9.8 L (11.4-16.0) gm/dL Hct 30.9 L (34.0-46.0) % MCV 96.5 (80.0-100.0) fL MCH 30.7 (25.0-35.0) pg MCHC 31.8 (31.0-37.0) g/dL RDW 13.8 (11.5-15.5) % Plt Count 397 (150-450) k/uL Neutrophils % 70 % Lymphocytes % 20 % Monocytes % 5 % Eosinophils % 4 % Basophils % 0 % Neutrophils # 8.8 H (1.3-7.7) k/uL Lymphocytes # 2.5 (1.0-4.8) k/uL Monocytes # 0.6 (0-1.0) k/uL Eosinophils # 0.5 (0-0.7) k/uL Basophils # 0.0 (0-0.2) k/uL PT 10.0 (9.0-12.0) sec INR 1.0 (<1.1) APTT 20.3 L (22.0-30.0) sec Sodium 138 (137-145) mmol/L Potassium 3.7 (3.5-5.1) mmol/L Chloride 106 (98-107) mmol/L Carbon Dioxide 25 (22-30) mmol/L Anion Gap 7 mmol/L BUN 41 H (7-17) mg/dL Creatinine 5.57 H* (0.52-1.04) mg/dL Est GFR (MDRD) Af Amer 9 (>60 ml/min/1.73 sqM) Est GFR (MDRD) Non-Af 8 (>60 ml/min/1.73 sqM) Glucose 72 L (74-99) mg/dL Calcium 8.2 L (8.4-10.2) mg/dL Total Bilirubin 0.4 (0.2-1.3) mg/dL AST 25 (14-36) U/L ALT 26 (9-52) U/L Alkaline Phosphatase 94 (38-126) U/L Total Protein 4.9 L (6.3-8.2) g/dL Albumin 2.3 L (3.5-5.0) g/dL Lipase 336 H (23-300) U/L TSH 2.180 (0.465-4.680) mIU/L Urine Color Urine Appearance (Clear) Urine pH (5.0-8.0) Ur Specific [place] (1.001-1.035) Urine Protein (Negative) Urine Glucose (UA) (Negative) Urine Ketones (Negative) Urine Blood (Negative) Urine Nitrite (Negative) Urine Bilirubin (Negative) Urine Urobilinogen (<2.0) mg/dL Ur Leukocyte Esterase (Negative) Urine RBC (0-5) /hpf Urine WBC (0-5) /hpf Ur Squamous Epith Cells (0-4) /hpf Urine Mucus (None) /hpf Urine Opiates Screen (NotDetected) Ur Oxycodone Screen (NotDetected) Urine Methadone Screen (NotDetected) Ur Propoxyphene Screen (NotDetected) Ur Barbiturates Screen (NotDetected) U Tricyclic Antidepress (NotDetected) Ur Phencyclidine Scrn (NotDetected) Ur Amphetamines Screen (NotDetected) U Methamphetamines Scrn (NotDetected) U Benzodiazepines Scrn (NotDetected) Urine Cocaine Screen (NotDetected) U Marijuana (THC) Screen (NotDetected) 01/04/17 01/04/17 Range/Units 11:10 11:10 WBC (3.8-10.6) k/uL RBC (3.80-5.40) m/uL Hgb (11.4-16.0) gm/dL Hct (34.0-46.0) % MCV (80.0-100.0) fL MCH (25.0-35.0) pg MCHC (31.0-37.0) g/dL RDW (11.5-15.5) % Plt Count (150-450) k/uL Neutrophils % % Lymphocytes % % Monocytes % % Eosinophils % % Basophils % % Neutrophils # (1.3-7.7) k/uL Lymphocytes # (1.0-4.8) k/uL Monocytes # (0-1.0) k/uL Eosinophils # (0-0.7) k/uL Basophils # (0-0.2) k/uL PT (9.0-12.0) sec INR (<1.1) APTT (22.0-30.0) sec Sodium (137-145) mmol/L Potassium (3.5-5.1) mmol/L Chloride (98-107) mmol/L Carbon Dioxide (22-30) mmol/L Anion Gap mmol/L BUN (7-17) mg/dL Creatinine (0.52-1.04) mg/dL Est GFR (MDRD) Af Amer (>60 ml/min/1.73 sqM) Est GFR (MDRD) Non-Af (>60 ml/min/1.73 sqM) Glucose (74-99) mg/dL Calcium (8.4-10.2) mg/dL Total Bilirubin (0.2-1.3) mg/dL AST (14-36) U/L ALT (9-52) U/L Alkaline Phosphatase (38-126) U/L Total Protein (6.3-8.2) g/dL Albumin (3.5-5.0) g/dL Lipase (23-300) U/L TSH (0.465-4.680) mIU/L Urine Color Light Yellow Urine Appearance Clear (Clear) Urine pH 8.0 (5.0-8.0) Ur Specific [place] 1.008 (1.001-1.035) Urine Protein 4+ H (Negative) Urine Glucose (UA) 2+ H (Negative) Urine Ketones Negative (Negative) Urine Blood Small H (Negative) Urine Nitrite Negative (Negative) Urine Bilirubin Negative (Negative) Urine Urobilinogen <2.0 (<2.0) mg/dL Ur Leukocyte Esterase Negative (Negative) Urine RBC <1 (0-5) /hpf Urine WBC 5 (0-5) /hpf Ur Squamous Epith Cells 1 (0-4) /hpf Urine Mucus Rare H (None) /hpf Urine Opiates Screen Not Detected (NotDetected) Ur Oxycodone Screen Not Detected (NotDetected) Urine Methadone Screen Not Detected (NotDetected) Ur Propoxyphene Screen Not Detected (NotDetected) Ur Barbiturates Screen Not Detected (NotDetected) U Tricyclic Antidepress Not Detected (NotDetected) Ur Phencyclidine Scrn Not Detected (NotDetected) Ur Amphetamines Screen Not Detected (NotDetected) U Methamphetamines Scrn Not Detected (NotDetected) U Benzodiazepines Scrn Detected H (NotDetected) Urine Cocaine Screen Not Detected (NotDetected) U Marijuana (THC) Screen Not Detected (NotDetected) Disposition Clinical Impression: Altered mental state, Chronic renal failure Disposition: ADMITTED IP TO THIS [facility] Condition: Stable Referrals: Francis Encarnacion DO [Primary Care Provider] - 1-2 days Time of Disposition: 13:29
[2017-01-04 11:12] LABS: Basophils % (A) 0 %; CH 31.2; CHCM 32.5; Eosinophils # (A) 0.5 k/uL (0-0.7); Eosinophils % (A) 4 %; HCT 30.9 % (34.0-46.0); HDW 2.59; HGB 9.8 gm/dL (11.4-16.0); Luc # (Auto) 0.12; Luc % (Auto) 1; Lymphocytes # (A) 2.5 k/uL (1.0-4.8); Lymphocytes % (A) 20 %; MCH 30.7 pg (25.0-35.0); MCHC 31.8 g/dL (31.0-37.0); MCV 96.5 fL (80.0-100.0); Mean Platelet Volume 6.5; Monocytes # (A) 0.6 k/uL (0-1.0); Monocytes % (A) 5 %; Neutrophils # (A) 8.8 k/uL (1.3-7.7); Neutrophils % (A) 70 %; RDW 13.8 % (11.5-15.5); WBC 12.6 k/uL (3.8-10.6); WBC (Perox) 12.62
--- NOTE | 2017-01-04 11:22 | XR ---
EXAMINATION TYPE: XR chest 2V DATE OF EXAM: 01/04/2017 11:16 AM COMPARISON: Prior chest x-ray from 5 days ago. HISTORY: History of COPD presents with shortness of breath and cough. TECHNIQUE: Frontal and lateral views of the chest are obtained. FINDINGS: Sternal wires and mediastinal clips are redemonstrated. There is stable right internal jugu lar dual-lumen dialysis catheter. There is background of chronic emphysematous change redemonstrated. There is no focal air space opacity or pneumothorax seen. Tiny bilateral pleural effusions are see n on lateral x-ray with blunting of posterior costophrenic angles. The cardiac silhouette size is upp er limits of normal currently. The osseous structures are somewhat demineralized. IMPRESSION: Chronic emphysematous change with tiny bilateral pleural effusions.
[2017-01-04 11:24] LABS: Calcium 8.2 mg/dL (8.4-10.2); Potassium 3.7 mmol/L (3.5-5.1); Total Bilirubin 0.4 mg/dL (0.2-1.3); Total Protein 4.9 g/dL (6.3-8.2)
[2017-01-04 11:59] LABS: Appearance,Urine Clear (Clear); Bilirubin,Urine Negative (Negative); Glucose,Urine (UA) 2+ (Negative); Ketones,Urine Negative (Negative); Leukocyte Esterase,Urine Negative (Negative); Mucus,Urine Rare /hpf; Nitrite,Urine Negative (Negative); Particle Count 922; Protein,Urine 4+ (Negative); RBC,Urine <1 /hpf (0-5); Specific Gravity,Urine 1.008 (1.001-1.035); Squamous Epithelial Cell,Urine 1 /hpf (0-4); UA Billing (MACRO vs. MICRO) MICRO; Urobilinogen,Urine <2.0 mg/dL (<2.0); WBC,Urine 5 /hpf (0-5)
[2017-01-04 12:33] LABS: Partial Thromboplastin Time 20.3 sec (22.0-30.0)
--- NOTE | 2017-01-04 13:06 | CT ---
EXAMINATION TYPE: CT brain wo con DATE OF EXAM: 01/04/2017 12:30 PM COMPARISON: NONE INDICATION: pain, Hallucinations DLP: 1613 mGycm, Automated exposure control for dose reduction was used. CONTRAST: None CT of the brain is performed utilizing 3 mm thick sections through the posterior fossa and 3 mm thick sections through the remaining calvarium. Study is performed within 24 hours of arrival to the hosp ital. No abnormal hyperdensity is present to suggest an acute intracranial hemorrhage. No mass lesion is evident. No acute infarcts are evident. Mild periventricular white matter hypodensity is present, likely on th e basis of chronic white matter ischemic changes. Note is made of vascular calcification at the skull base. Ventricles and sulci are appropriate for the patient age. Paranasal sinuses and mastoid air cells within the [id number] are clear. IMPRESSIONS: 1. Mild chronic appearing white matter ischemic changes.
[2017-01-04] MEDS ORDERED: SODIUM CHLORIDE 0.9% 1,000 ML IV ONE (13:52)
[2017-01-04] MEDS ORDERED: NALOXONE 0.4 MG/ML 1 ML VIAL IV PRN (13:52)
[2017-01-04 15:46] VITALS: BMI 25.9
[2017-01-04] MEDS ORDERED: LOPERAMIDE 2 MG CAP PO PRN (18:01)
[2017-01-04] MEDS ORDERED: FLUTICASONE 50MCG/SPRAY NASAL 16GM EA NOSTRIL PRN (18:01)
[2017-01-04] MEDS: BUDESONIDE 1 MG/2 ML NEBU INHALATION SCH (21:01)
[2017-01-04] MEDS: IPRATROPIUM-ALBUTEROL 3 ML NEB INHALATION SCH (21:01)
[2017-01-04] MEDS: PRAZOSIN 1 MG CAP PO SCH (21:03)
[2017-01-04] MEDS: ALPRAZolam 0.25 MG TAB PO SCH (21:03)
[2017-01-04] MEDS: METOPROLOL TARTRATE 25 MG TAB PO SCH (21:03)
[2017-01-04] MEDS: PANTOPRAZOLE 40 MG TABLET PO SCH (21:03)
[2017-01-04] MEDS: traMADol 50 MG TAB PO PRN (21:07)
[2017-01-05] MEDS: CHOLESTYRAMINE (WITH SUGAR) 4 GM PACKET PO SCH ×3 (07:43→18:29)
[2017-01-05] MEDS: SODIUM BICARBONATE TAB 650 MG TAB PO SCH ×2 (07:43→18:17)
[2017-01-05] MEDS: ISOSORBIDE MONONITRATE ER 60 MG TAB.ER.24H PO SCH (07:43)
[2017-01-05] MEDS: PANTOPRAZOLE 40 MG TABLET PO SCH ×2 (07:43→18:17)
[2017-01-05] MEDS: CITALOPRAM HYDROBROMIDE 20 MG TAB PO SCH (07:43)
[2017-01-05] MEDS: predniSONE 20 MG TAB PO SCH (07:43)
[2017-01-05] MEDS: ATORVASTATIN 80 MG TAB PO SCH (07:44)
[2017-01-05] MEDS: CALCIUM ACETATE 667 MG CAP PO SCH ×3 (07:44→18:17)
[2017-01-05] MEDS: CLOPIDOGREL 75 MG TAB PO SCH (07:44)
[2017-01-05] MEDS: PRAZOSIN 1 MG CAP PO SCH ×3 (07:44→21:59)
[2017-01-05] MEDS: ASPIRIN 81 MG CHEW PO SCH (07:44)
[2017-01-05] MEDS: METOPROLOL TARTRATE 25 MG TAB PO SCH ×2 (07:44→21:59)
[2017-01-05] MEDS: amLODIPine 10 MG TAB PO SCH (07:44)
[2017-01-05] MEDS: BUDESONIDE 1 MG/2 ML NEBU INHALATION SCH ×2 (08:29→20:32)
[2017-01-05] MEDS: IPRATROPIUM-ALBUTEROL 3 ML NEB INHALATION SCH ×3 (08:29→20:32)
[2017-01-05 09:17] LABS: Basophils % (A) 0 %; CH 30.2; CHCM 31.1; Eosinophils # (A) 0.3 k/uL (0-0.7); Eosinophils % (A) 3 %; HDW 2.45; HGB 9.2 gm/dL (11.4-16.0); Hypochromasia Slight; Luc # (Auto) 0.12; Luc % (Auto) 1; Lymphocytes # (A) 1.8 k/uL (1.0-4.8); Lymphocytes % (A) 16 %; MCH 30.8 pg (25.0-35.0); MCHC 31.6 g/dL (31.0-37.0); MCV 97.5 fL (80.0-100.0); Mean Platelet Volume 6.8; Monocytes # (A) 0.5 k/uL (0-1.0); Monocytes % (A) 5 %; Neutrophils # (A) 8.9 k/uL (1.3-7.7); Neutrophils % (A) 76 %; RBC 2.97 m/uL (3.80-5.40); RDW 13.3 % (11.5-15.5); WBC 11.8 k/uL (3.8-10.6); WBC (Perox) 12.25
[2017-01-05 09:28] LABS: Calcium 7.8 mg/dL (8.4-10.2); Potassium 4.1 mmol/L (3.5-5.1); Total Bilirubin 0.6 mg/dL (0.2-1.3); Total Protein 4.8 g/dL (6.3-8.2)
[2017-01-05] MEDS ORDERED: HEPARIN SODIUM,PORCINE 5,000 UNIT/ML 1 ML VIAL ONE (10:00)
[2017-01-05 10:30] LABS: Phosphorous 5.1 mg/dL (2.5-4.5)
--- NOTE | 2017-01-05 11:00 | P.NPCON ---
History of Present Illness - Reason for Consult end stage renal disease - History of Present Illness Reason for consultation: End-stage renal disease History of present illness: Patient is a 61-year-old female seen in renal consultation for end- stage renal disease. She was recently started on hemodialysis and has completed 3 treatments of hemodialysis and her prior hospitalization. She was also started as an outpatient today however she came to the hospital yesterday due to hallucinations. Patient states she felt disoriented. According to the chart, she was seeing nurses and doctors in her bedroom. Denies any chest pain or shortness of breath. She does admit to some tremors. No vomiting or diarrhea. No fever or chills. Her last hemodialysis was on January 02. Etiology for kidney diseases biopsy proven diabetic kidney disease. Hemodynamically she is stable. Her white count is slightly elevated at 11.8. She is afebrile. No other complaints at this time. Vital signs are stable. General: The patient appeared well nourished and normally developed. HEENT: Head exam is unremarkable. Neck is without jugular venous distension. LUNGS: Lungs are clear to auscultation and percussion. Breath sounds decreased. HEART: Rate and Rhythm are regular. First and second heart sounds normal. No murmurs, rubs or gallops. ABDOMEN: Abdominal exam reveals normal bowel sounds. Non-tender and non- distended. No evidence of peritonitis. EXTREMITITES: 1+ edema. Past Medical History Past Medical History: Coronary Artery Disease (CAD), COPD, Diabetes Mellitus, Deep Vein Thrombosis (DVT), Hyperlipidemia, Hypertension, Osteoarthritis (OA), Renal Disease Additional Past Medical History / Comment(s): right leg blood clot post CABG, CATARACTS, SINUS PROBLEMS. STATED "WT DOWN FROM 258 TO 166 OVER PAST YEAR STATED D/T INTERMITTENT N/V/D. CURRNETLY NO PRONLEMS W/DIARRHEA" Last Myocardial Infarction Date:: August 2009 History of Any Multi-Drug Resistant Organisms: None Reported Past Surgical History: Section, Coronary Bypass/CABG, Heart Catheterization With Stent, Tubal Ligation Additional Past Surgical History / Comment(s): triple bypass. heart cath in august 2009 at [facility] in [place]. "stent in right groin" RT KIDNEY BX. EGD/COLONOSCOPY MULTIPLE POLYPS REMOVED. PT HAD RECENT TEMPORARY HEMODIALYSIS CATHETER INSERTED TO RIGHT CHEST WALL DURING LAST ADMISSION. Past Anesthesia/Blood Transfusion Reactions: No Reported Reaction, Motion Sickness Additional Past Anesthesia/Blood Transfusion Reaction / Comment(s): BLOOD TRANSFUSION A BABY, CLAUSTERPHOBIA Date of Last Stent Placement:: August 2009 Past Psychological History: No Psychological Hx Reported Additional Psychological History / Comment(s): [employer], RETIRED/DISABILTY. USED TO WORK A NURSE AID. Her adult daughter who is 35 lives with her.LIVES IN SINGLE LEVEL HOME THAT HAS 1 STEP, CANE, GLUCOMETER. Ongoing tobacco smoker from her teenage years. Denies significant alcohol or recreational drug use. No experience. No travel history. No animals in the home at this point in time. His move back to [place] after many years living in the [facility] part of the [facility], she would call this home. Smoking Status: Current every day smoker Past Alcohol Use History: None Reported Additional Past Alcohol Use History / Comment(s): STARTED SMOKING AT AGE 19- QUIT WHEN WITH DAUGHTER THEN RESTARTED SMOKES 10-15 CIGr Past Drug Use History: None Reported - Past Family History Father Family Medical History: COPD, Hypertension, Myocardial Infarction (MD) Mother Family Medical History: Cancer, Myocardial Infarction (MD) Additional Family Medical History / Comment(s): brain and lung cancer Sister(s) Family Medical History: Cancer, Diabetes Mellitus, Myocardial Infarction (MD) Additional Family Medical History / Comment(s): heart cath with stent Medications and Allergies Home Medications Medication Instructions Recorded Confirmed Type Citalopram Hydrobromide [CeleXA] 40 mg PO DAILY 01/28/15 01/04/17 History Isosorbide Mononitrate ER [Imdur] 60 mg PO DAILY 01/28/15 01/04/17 History traMADol HCl [Ultram] 50 mg PO Q4H PRN 01/28/15 01/04/17 History Fluticasone Nasal [place] [Flonase 2 spray EA NOSTRIL DAILY PRN 05/25/15 01/04/17 History Nasal [place]] Aspirin [Adult Low Dose Aspirin EC] 81 mg PO DAILY 10/21/16 01/04/17 History ALPRAZolam [Alprazolam] 0.25 mg PO HS 12/28/16 01/04/17 History Sodium Bicarbonate Tab 650 mg PO AC-BID 12/28/16 01/04/17 History Allergies Allergy/AdvReac Type Severity Reaction Status Date / Time Penicillins Allergy Rash/Hives Verified 01/04/17 09:22 garlic AdvReac Vomiting Verified 01/04/17 09:22 Physical Exam Vitals: Vital Signs Temp Pulse Pulse Resp BP BP Pulse Ox 01/05/17 08:40 76 01/05/17 08:30 72 01/05/17 07:00 98.5 F 78 14 139/79 97 01/04/17 23:00 99.2 F 87 16 148/70 93 L 01/04/17 21:17 76 01/04/17 21:06 76 01/04/17 21:03 86 163/77 01/04/17 15:00 96.4 F L 75 16 160/97 98 01/04/17 14:40 98 F 72 16 185/86 97 01/04/17 14:00 98 F 72 16 185/86 97 01/04/17 11:45 98.3 F 70 16 183/84 97 Intake and Output 01/04/17 01/05/17 01/05/17 22:59 06:59 14:59 Other: # Voids 2 5 Weight 75.296 kg Results - Lab Results Most recent lab results Calcium 7.8 mg/dL (8.4-10.2) L 01/05/17 08:29 Phosphorus 5.1 mg/dL (2.5-4.5) H 01/05/17 08:29 01/05/17 08:29 01/05/17 08:29 Assessment and Plan Plan: Assessment: #1. End-stage renal disease now dialysis dependent via permacath. Last hemodialysis was on January 02. #2. Hallucinations. Rule out infectious etiology. #3. Anemia of chronic kidney disease. Iron deficiency present. #4. Chronic kidney disease mineral bone disease. #5. Hypertension with chronic kidney disease. Controlled. #6. Fluid overload. Plan: Hemodialysis today with goal 2-1/2-3 L ultrafiltration. Ferrlecit 125 mg IV daily for 3 days. First dose today. Check culture from the dialysis catheter. Follow-up blood and urine culture. Check phosphorus level. Start IV Lasix 60 mg twice daily. Thank you for the consultation. I will continue to follow the patient with you during her hospital stay.
--- NOTE | 2017-01-05 12:29 | P.CN ---
Psychiatric Consult - . Consult date: 01/05/17 Consult:: IDENTIFYING DATA: Mrs. Agudelo is a 61-year-old female who has end-stage renal disease. She presented to the Medical Center with complaints of auditory and visual hallucinations. HISTORY OF PRESENT ILLNESS: I reviewed the medical record and interviewed Ms. Agudelo. According to record, she presented to the hospital with complaints of hallucinations. She "woke up this morning and felt she was hallucinating. She stated that she was seeing nurses and doctors in her bedroom. Her daughter lives with her and when she entered her room she found her talking to these imaginary people." She described experiencing distinct and well formed visual hallucinations with a accompanying auditory hallucinations. She lucidly describe the experience where she saw her healthcare providers talking amongst themselves. Her description of the experience and appeared to be consistent with true auditory and visual hallucinations. She stated she continues to "see people" and described the experience of seeing a white haired lady in her bathroom. She believes the person is another patient from "[place] the [place]". She stated that she alerted nursing staff to the presence of this person and staff told her that nobody was in her bathroom. She denied experiencing auditory or visual hallucinations as well as other psychotic symptoms prior to the day of admission. She denied other psychotic symptoms such as ideas reference, thought insertion, thought broadcasting or thought control. She denied feeling depressed or having thoughts of or suicide. She described a general sense of anxiety present throughout the day that fluctuates in intensity and contributes to restlessness and tremor. She denied experiencing increased periods of anxiety consistent with a panic attack. She denied obsessions or compulsions. She denied use of drugs or alcohol. PAST PSYCHIATRIC HISTORY: She denied a that she had met with a mental health professional including psychiatrist, psychologist, social sciences research scientist, counselor or therapist. Her primary care provider prescribed Xanax and citalopram for the treatment of complaints of depression and primarily anxiety. She denied history of psychiatric hospitalizations. PAST MEDICAL HISTORY: She has an end-stage disease secondary to her diabetes. She was discharge from this Medical Center on 01/02/2017 with multiple diagnoses including acute renal failure, acute urinary tract infection, acute on chronic pulmonary obstructive disease, coronary artery disease, type 2 diabetes mellitus, hypertension, essential hypertension, probably osteoarthritis. She had 3 hemodialysis treatments during the admission and referred for continued outpatient hemodialysis. However, according to record, she did not receive the initial outpatient hemodialysis. The auditory visual hallucinations began after she did not have the outpatient hemodialysis. SUBSTANCE USE HISTORY: She denied a history of abuse of drugs or alcohol. SOCIAL HISTORY: She was born in [facility]. Her parents when she was young. Her parents had joint custody and she lived between her mother and father. She completed high school and began working after high school. She had her only child from her first marriage. The marriage ended in divorce because of her 's infidelity. Her second marriage lasted 25 years and her second about 12 years ago. She has 2 grandchildren. She lives with her daughter and grandchildren. She is unemployed and receives security disability. MENTAL STATUS EXAM: She presented as a slightly disheveled appearing moderately obese 7-year-old female who looked older than her stated age. She made eye contact and attended to the interview. She was tremulous but had no prominent physical abnormalities. She had a blunted but bright facial expression. She was alert and oriented to person, place, month and year. She said no abnormality of psychomotor activity. Her speech was spontaneous with normal rate, rhythm and volume. She had no articulation difficulties. She appeared anxious but her affect was stable and appropriate. She denied suicidal ideation or wishes. She denied homicidal ideation. She denied feeling hopeless, helpless or worthless. She ruminated about her medical illness and her continued need for medical treatment. She related her anxiety to her concerns about to severity of her medical illness. She did not express ideas reference, paranoid ideation or delusional beliefs. Her thinking was concrete but her associations were coherent and logical. She denied that she was currently experiencing visual or auditory hallucinations. We completed the [facility] Orientation Memory and Concentration test. Her total weighted error score was 12; a total weighted error score greater than 10 is consistent with a dementia. She knew the month and year. She was able to register the memory phrase "Scooter Cardoso, [address] [place] [address]." She did not estimate the time correctly within 1 hour of the actual time. We conducted the interview at approximately 10:15 and she thought it was 4:30 in the afternoon. She was able to count backwards from 20. She made one error when naming the months of the year backwards beginning with July; she transposed the months November and December. She remembered 3 elements from the memory phrase "Scooter Card[place] and [place]" but could not remember the name of the street or the city. IMPRESSIONS: She is a 61-year-old woman with multiple medical problems including end-stage renal disease. She developed auditory and visual hallucinations one day after discharge after missing her first outpatient hemodialysis session. She denied a history of psychiatric treatment or psychiatric hospitalizations. She denied that she had experienced hallucinations in the past. She was alert and oriented to person, place, month and year. She was able to coherently describe her auditory and visual experiences and the experiences appear to be true auditory and visual hallucinations. On formal mental status testing she some impairments with orientation, concentration and short-term memory. The hallucinations are due to her medical illnesses and not a primary psychotic and/or mood disorder. Similarly, I believe that her performance on formal mental status testing is a result of her medical illness season but I cannot rule out a major or minor neurocognitive disorder. 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 She may benefit from an antipsychotic medication. Consider replacing the HS Xanax with Seroquel 50 mg and titrate to Seroquel according to tolerance and clinical effect.. The benzodiazepines including Xanax may cause increased confusion and individuals with cognitive impairment. 01/05/17 11:52
[2017-01-05] MEDS: FUROSEMIDE 10 MG/ML 10 ML VIAL IV SCH ×2 (13:27→21:59)
[2017-01-05] MEDS: SODIUM FERRIC GLUCONAT-SUCROSE 125 MG in SODIUM CHLORIDE 0.9% 100 ML IVPB SCH (13:27)
--- NOTE | 2017-01-05 18:43 | HP ---
DATE OF ADMISSION: 01/04/2017 PRESENTING COMPLAINT: Weak and tired. HISTORY OF PRESENTING COMPLAINT: This is a pleasant 61-year-old patient who was just discharged from the hospital a couple of days ago. At that time, patient was found to be in acute renal failure/ATN, started on hemodialysis, also treated for COPD exacerbation and UTI. Somehow the patient's family got mixed up over the dialysis days and patient missed a dialysis on Monday and did go in for dialysis on Monday, which was not her date. Subsequently patient became somewhat lethargic, felt to be uremic and was admitted to the hospital. The patient is pending dialysis. REVIEW OF SYSTEMS: CONSTITUTIONAL: Weak and tired. HEENT: None. RESPIRATORY: Slightly short of breath. CARDIOVASCULAR: None. GASTROINTESTINAL: None. MUSCULOSKELETAL: None. DERMATOLOGICAL: None. HEMATOLOGICAL: None. LYMPHATIC: None. PSYCHIATRY: A little bit tired and confused. NEUROLOGICAL: Nonfocal. PAST MEDICAL HISTORY: 1. End-stage kidney disease on hemodialysis. 2. COPD in an ex-smoker. 3. Coronary artery disease with prior history of stent and coronary artery bypass. 4. Diabetes mellitus type 2, not on any medications any more. 5. Hyperlipidemia. 6. Essential hypertension. 7. Primary osteoarthritis multiple joints, bilateral. PAST SURGICAL HISTORY: , coronary artery bypass, cardiac cath with stent, tubal ligation, triple bypass in August at [facility] in [place], stent in the right groin, EGD, colonoscopy with multiple polyps removed. SOCIAL HISTORY: The patient lives with daughter. The patient has smoked 1/2 pack a day for many years, stopped last week. Alcohol: None. FAMILY HISTORY: Myocardial infarction COPD, hypertension, brain and lung cancer. HOME MEDICATIONS: 1. Ultram 50 mg p.o. q.4 p.r.n. 2. Prednisone 20 mg a day. 3. Amlodipine 10 mg p.o. daily. 4. Sodium bicarb to 650 mg p.o. b.i.d. 5. Minipress 2 mg p.o. t.i.d. 6. Nitrostat 0.4 sublingual q.5 p.r.n. 7. Lopressor 25 mg p.o. b.i.d. 8. Imodium 2 mg q.i.d. p.r.n. 9. Imdur ER 60 mg p.o. daily. 10. DuoNeb t.i.d. 11. Flonase 2 sprays nostril daily p.r.n. 12. Plavix 75 mg p.o. daily. 13. Celexa 40 mg p.o. daily. 14. Questran 4 g p.o. t.i.d. with meals. 15. PhosLo 1 tablet p.o. t.i.d. with meals. 16. Pulmicort 1 mg t.i.d. 17. ( ) 80 mg p.o. daily. 18. Aspirin 81 mg p.o. daily. 19. Xanax 0.25 p.o. q.h.s. ALLERGIES: PENICILLIN AND GARLIC. PHYSICAL EXAMINATION: Vital signs on presentation: Temperature 98, pulse 72, respirations 16, blood pressure 185/86, pulse ox 97% on room on room air. GENERAL APPEARANCE: Well built, lying in bed, tired-appearing. EYES: Pupils equal. Conjunctivae normal. HEENT: Oral cavity normal. NECK: JVD not raised. Mass not palpable. RESPIRATORY: Effort increased. LUNGS: Diminished breath sounds. CARDIOVASCULAR: First and second sounds normal. Mild edema. ABDOMEN: Soft, nontender. Liver and spleen not palpable. LYMPHATIC: No lymph nodes palpable in the neck or axillae. PSYCHIATRY: Patient is able to answer questions, but slightly lethargic. CHEST WALL: Right chest wall has a hemodialysis catheter. NEUROLOGICAL: Pupils equal. Cranial nerves grossly intact. Moving all 4 limbs. INVESTIGATIONS: White count 12.6, hemoglobin 9.8. Potassium 3.7, BUN 41, creatinine 5.57. TSH normal. ASSESSMENT: 1. Acute metabolic encephalopathy from missed hemodialysis. 2. Acute fluid overload from missed hemodialysis. 3. End-stage kidney disease on hemodialysis due to diabetic nephrosclerosis and hypertensive nephrosclerosis. 4. Chronic obstructive pulmonary disease in an ex-smoker. 5. Coronary artery disease with prior history of stent and bypass. 6. Hyperlipidemia. 7. Essential hypertension, uncontrolled from missed dialysis. 8. Primary osteoarthritis in multiple joints bilaterally. PLAN: Home medications are resumed. Nephrology is consulted. Patient will get dialyzed later today, will need probably dialysis tomorrow, too. Care was discussed with daughter at the bedside.
[2017-01-05] MEDS: NITROGLYCERIN SL TABS 0.4 MG TAB SUBLINGUAL PRN (21:18)
[2017-01-05] MEDS: ALPRAZolam 0.25 MG TAB PO SCH ×2 (21:18→21:43)
[2017-01-05] MEDS ORDERED: MORPHINE SULFATE 2 MG/ML SYRINGE IVP ONE (21:39)
[2017-01-05] MEDS: QUEtiapine 50 MG TAB PO SCH (21:58)
[2017-01-06] MEDS: NITROGLYCERIN SL TABS 0.4 MG TAB SUBLINGUAL PRN (01:08)
[2017-01-06] MEDS: traMADol 50 MG TAB PO PRN ×2 (01:49→08:53)
[2017-01-06] MEDS: BUDESONIDE 1 MG/2 ML NEBU INHALATION SCH ×2 (07:47→21:02)
[2017-01-06] MEDS: IPRATROPIUM-ALBUTEROL 3 ML NEB INHALATION SCH ×3 (07:47→21:02)
[2017-01-06] MEDS: ASPIRIN 81 MG CHEW PO SCH (08:53)
[2017-01-06] MEDS: PRAZOSIN 1 MG CAP PO SCH ×3 (08:53→21:29)
[2017-01-06] MEDS: METOPROLOL TARTRATE 25 MG TAB PO SCH ×2 (08:54→21:29)
[2017-01-06] MEDS: PANTOPRAZOLE 40 MG TABLET PO SCH ×2 (08:54→16:31)
[2017-01-06] MEDS: FUROSEMIDE 10 MG/ML 10 ML VIAL IV SCH ×2 (08:54→21:29)
[2017-01-06] MEDS: ATORVASTATIN 80 MG TAB PO SCH (08:54)
[2017-01-06] MEDS: amLODIPine 10 MG TAB PO SCH (08:54)
[2017-01-06] MEDS: ISOSORBIDE MONONITRATE ER 60 MG TAB.ER.24H PO SCH (08:54)
[2017-01-06] MEDS: CALCIUM ACETATE 667 MG CAP PO SCH ×3 (08:54→16:31)
[2017-01-06] MEDS: CHOLESTYRAMINE (WITH SUGAR) 4 GM PACKET PO SCH ×4 (08:54→16:33)
[2017-01-06] MEDS: CITALOPRAM HYDROBROMIDE 20 MG TAB PO SCH (08:54)
[2017-01-06] MEDS: predniSONE 20 MG TAB PO SCH (08:54)
[2017-01-06] MEDS: CLOPIDOGREL 75 MG TAB PO SCH (08:54)
[2017-01-06] MEDS: SODIUM BICARBONATE TAB 650 MG TAB PO SCH ×2 (08:55→16:33)
--- NOTE | 2017-01-06 09:51 | P.PN ---
Subjective Patient seen in follow-up for end-stage renal disease. She was recently started on hemodialysis due to biopsy-proven diabetic kidney disease. Her last hemodialysis prior to this admission was on Monday. Patient presented to the hospital due to hallucinations. She had a panic attack last night as well. She has been started on Seroquel. Currently she is resting in bed. She is awake and alert. Denies chest pain or shortness of breath. She underwent hemodialysis last night with 2 L ultrafiltration. Vital signs are stable. General: The patient appeared well nourished and normally developed. HEENT: Head exam is unremarkable. Neck is without jugular venous distension. LUNGS: Lungs are clear to auscultation and percussion. Breath sounds decreased. HEART: Rate and Rhythm are regular. First and second heart sounds normal. No murmurs, rubs or gallops. ABDOMEN: Abdominal exam reveals normal bowel sounds. Non-tender and non- distended. No evidence of peritonitis. EXTREMITITES: No clubbing, cyanosis, or edema. Objective - Vital Signs Vital signs: Vital Signs Temp 98.4 F 01/06/17 07:00 Pulse 84 01/06/17 07:47 Resp 20 01/06/17 08:00 BP 130/57 01/06/17 07:00 Pulse Ox 95 01/06/17 07:00 Intake & Output 01/05/17 01/06/17 01/06/17 18:59 06:59 18:59 Intake Total 300 Balance 300 Weight 78.245 kg Intake: Oral 300 Other: Voiding Method Toilet Toilet Bedpan Bedpan # Voids 3 1 - Labs CBC & Chem 7: 01/05/17 08:29 01/05/17 08:29 Labs: Abnormal Lab Results - Last 24 Hours (Table) 01/05/17 Range/Units 08:29 Phosphorus 5.1 H (2.5-4.5) mg/dL Iron 18 L (37-170) ug/dL TIBC 164 L (265-497) ug/dL % Saturation 11.0 L (20-50) % Microbiology - Last 24 Hours (Table) 01/04/17 10:53 Blood Culture - Preliminary Blood No Growth after 24 hours 01/04/17 11:10 Urine Culture - Final Urine,Voided Assessment and Plan Plan: Assessment: #1. End-stage renal disease now dialysis dependent via permacath. Last hemodialysis was on January 05. #2. Hallucinations. Resolved. Being followed by psychiatry. Cultures negative. #3. Anemia of chronic kidney disease. Iron deficiency present. #4. Chronic kidney disease mineral bone disease. #5. Hypertension with chronic kidney disease. Controlled. #6. Fluid overload. Improved. Plan: Hemodialysis tomorrow with goal 2-1/2-3 L ultrafiltration. Ferrlecit 125 mg IV daily for 3 days. Second dose today. Follow-up cultures. Maintain PhosLo with meals. Continue IV Lasix 60 mg twice daily.
[2017-01-06 09:57] LABS: Hepatitis B Surface Ag Index 0.05
[2017-01-06] MEDS: SODIUM FERRIC GLUCONAT-SUCROSE 125 MG in SODIUM CHLORIDE 0.9% 100 ML IVPB SCH (12:36)
--- NOTE | 2017-01-06 21:02 | PN ---
DATE OF SERVICE: 01/06/2017 PRESENTING COMPLAINT: Weak and tired. INTERVAL HISTORY: This is a 61-year-old female who was recently discharged from the hospital and returned secondary to mix-up on dialysis treatment days. Additionally patient became increasingly lethargic and delirious secondary to uremia. Today patient received a treatment of dialysis overnight. Patient's mood and affect are improved. Patient is less delirious, less confused.
--- NOTE | 2017-01-06 21:11 | PN ---
DATE OF SERVICE: 01/06/2017 PRESENTING COMPLAINT: Weak and tired. INTERVAL HISTORY: This is a 61-year-old female who was admitted with delirium secondary to uremia. Today on exam patient is less delirious. Received a treatment of dialysis overnight. Has some myoclonic jerking and is expected to receive a second dialysis treatment today. Patient is sitting up in bed, able to answer questions. States she feels less weak and tired today; however, she still complains of feeling tired. Able to eat some soft foods. States she prefers Jell-O and pudding. No nausea. No vomiting. Review of systems done for constitutional, cardiovascular, GI, pulmonary, with relevant findings as above. CURRENT MEDICATIONS: 1. Norvasc. 2. Pulmicort. 3. DuoNeb. 4. PhosLo. 5. Questran. 6. Lasix. 7. Lopressor. PHYSICAL EXAMINATION: VITAL SIGNS: Temperature 98.4, pulse 76, respiratory rate 20, blood pressure 130/57, oxygen saturation 95% on room air. GENERAL APPEARANCE: Patient appears a bit pale. Still remains a bit weak and tired. EYES: Pupils equal. Conjunctivae normal. NECK: JVD not raised. Mass not palpable. LUNGS: Diminished bilaterally. Diffuse crackles at the bases. RESPIRATORY: Effort normal, unlabored. CARDIOVASCULAR: First and second sounds normal. No edema. ABDOMEN: Soft, nontender. Liver and spleen not palpable. PSYCHIATRY: Alert and oriented x3. Mood and affect are a bit flat. INVESTIGATIONS: No new labs to report. ASSESSMENT: 1. Acute metabolic encephalopathy from missed hemodialysis, slowly improving. 2. Acute fluid overload from missed hemodialysis, improving. 3. End-stage kidney disease, on hemodialysis, due to diabetic nephrosclerosis and hypertensive nephrosclerosis. 4. Chronic obstructive pulmonary disease in an ex-smoker. 5. Coronary artery disease with prior history of stent and bypass. 6. Hyperlipidemia. 7. Essential hypertension, uncontrolled from missed dialysis, improving. 8. Primary osteoarthritis in multiple joints bilaterally. PLAN: Continue current medication and treatment plan. Nephrology will repeat dialysis treatment today as well as tomorrow in efforts to get patient ready for discharge. Tentative discharge planning to occur in the next 1 to 2 days. Plan of care was discussed with the patient at the bedside. Patient was seen and examined by nurse practitioner Selene Bowen and all elements of the case discussed with attending, Dr. Carr.
[2017-01-06] MEDS: QUEtiapine 50 MG TAB PO SCH (21:29)
--- NOTE | 2017-01-06 22:36 | PN ---
DATE OF SERVICE: 01/06/2017 ATTENDING NOTE: This patient was seen and examined by me earlier today. I reviewed the note of my nurse practitioner, Ms. Bowen, and agree with the same. Patient lying in bed, somewhat tired, was admitted after having missed her hemodialysis. Awaiting hemodialysis this evening. On examination, pulse 73, respirations 20, blood pressure 119/42. LUNGS: Decreased breath sounds. CARDIOVASCULAR: First and second sounds normal, mild edema. ASSESSMENT: 1. Acute metabolic encephalopathy from missed dialysis, improving. 2. Acute fluid overload from missed hemodialysis. 3. End-stage kidney disease. PLAN: Continued medication and treatment plan. Probably get dialyzed again.
[2017-01-07] MEDS: SODIUM BICARBONATE TAB 650 MG TAB PO SCH ×2 (07:31→17:46)
[2017-01-07] MEDS: CITALOPRAM HYDROBROMIDE 20 MG TAB PO SCH (07:31)
[2017-01-07] MEDS: PANTOPRAZOLE 40 MG TABLET PO SCH ×2 (07:31→17:46)
[2017-01-07] MEDS: traMADol 50 MG TAB PO PRN (07:31)
[2017-01-07] MEDS: SODIUM FERRIC GLUCONAT-SUCROSE 125 MG in SODIUM CHLORIDE 0.9% 100 ML IVPB SCH (07:31)
[2017-01-07] MEDS: CHOLESTYRAMINE (WITH SUGAR) 4 GM PACKET PO SCH ×3 (07:31→17:46)
[2017-01-07] MEDS: ATORVASTATIN 80 MG TAB PO SCH (07:32)
[2017-01-07] MEDS: CALCIUM ACETATE 667 MG CAP PO SCH ×3 (07:32→17:46)
[2017-01-07] MEDS: CLOPIDOGREL 75 MG TAB PO SCH (07:32)
[2017-01-07] MEDS: ASPIRIN 81 MG CHEW PO SCH (07:32)
[2017-01-07] MEDS: predniSONE 20 MG TAB PO SCH (07:32)
[2017-01-07 10:35] LABS: CH 30.7; CHCM 31.5; HCT 25.4 % (34.0-46.0); HDW 2.36; HGB 8.1 gm/dL (11.4-16.0); MCH 31.3 pg (25.0-35.0); MCV 97.9 fL (80.0-100.0); Mean Platelet Volume 6.9; RDW 13.6 % (11.5-15.5)
--- NOTE | 2017-01-07 10:35 | P.PN ---
Subjective Patient seen in follow-up for end-stage renal disease. She was recently started on hemodialysis due to biopsy-proven diabetic kidney disease. Patient presented to the hospital due to hallucinations. She had a panic attack on evening as well. She has been started on Seroquel. Currently she is resting in bed. She is awake and alert. Denies chest pain or shortness of breath. Currently undergoing hemodialysis. Vital signs are stable. General: The patient appeared well nourished and normally developed. HEENT: Head exam is unremarkable. Neck is without jugular venous distension. LUNGS: Lungs are clear to auscultation and percussion. Breath sounds decreased. HEART: Rate and Rhythm are regular. First and second heart sounds normal. No murmurs, rubs or gallops. ABDOMEN: Abdominal exam reveals normal bowel sounds. Non-tender and non- distended. No evidence of peritonitis. EXTREMITITES: No clubbing, cyanosis, or edema. Objective - Vital Signs Vital signs: Vital Signs Temp 99.3 F 01/07/17 07:00 Pulse 86 01/07/17 07:00 Resp 20 01/07/17 07:00 BP 152/73 01/07/17 07:00 Pulse Ox 93 L 01/07/17 07:00 Intake & Output 01/06/17 01/07/17 01/07/17 18:59 06:59 18:59 Intake Total 850 Balance 850 Weight 79.152 kg Intake: Oral 850 Other: Voiding Method Toilet Toilet Bedpan # Voids 1 0 - Labs CBC & Chem 7: 01/05/17 08:29 01/05/17 08:29 Labs: Microbiology - Last 24 Hours (Table) 01/05/17 22:45 Blood Culture - Preliminary Blood No Growth after 24 hours 01/04/17 10:53 Blood Culture - Preliminary Blood No Growth after 48 hours Assessment and Plan Plan: Assessment: #1. End-stage renal disease now dialysis dependent via permacath. Last hemodialysis was on January 05. #2. Hallucinations. Resolved. Being followed by psychiatry. Cultures negative. #3. Anemia of chronic kidney disease. Iron deficiency present. #4. Chronic kidney disease mineral bone disease. #5. Hypertension with chronic kidney disease. Controlled. #6. Fluid overload. Improved. Plan: Currently undergoing hemodialysis with goal 2-1/2-3 L ultrafiltration. Ferrlecit 125 mg IV daily for 3 days. Third dose today. Follow-up cultures. Maintain PhosLo with meals. Continue IV Lasix 60 mg twice daily. Stable to be discharged home from nephrology standpoint. She is to get vein mapping done on Monday and can start hemodialysis Monday at the outpatient center.
[2017-01-07 10:45] LABS: Calcium 7.9 mg/dL (8.4-10.2); Potassium 3.7 mmol/L (3.5-5.1)
[2017-01-07] MEDS: PRAZOSIN 1 MG CAP PO SCH ×3 (12:49→21:15)
[2017-01-07] MEDS: FUROSEMIDE 10 MG/ML 10 ML VIAL IV SCH ×2 (12:51→21:15)
[2017-01-07] MEDS: METOPROLOL TARTRATE 25 MG TAB PO SCH ×2 (12:51→21:15)
[2017-01-07] MEDS: amLODIPine 10 MG TAB PO SCH (12:51)
[2017-01-07] MEDS: ISOSORBIDE MONONITRATE ER 60 MG TAB.ER.24H PO SCH (12:51)
[2017-01-07] MEDS: BUDESONIDE 1 MG/2 ML NEBU INHALATION SCH ×2 (13:10→19:58)
[2017-01-07] MEDS: IPRATROPIUM-ALBUTEROL 3 ML NEB INHALATION SCH ×2 (13:10→19:58)
--- NOTE | 2017-01-07 13:38 | XR ---
EXAMINATION TYPE: XR chest 2V DATE OF EXAM: 01/07/2017 1:15 PM COMPARISON: 01/04/2017 HISTORY: 61-year-old female low pulse ox TECHNIQUE: Frontal and lateral views FINDINGS: Right-sided double-lumen hemodialysis catheter with tips at the lower SVC and cavoatrial junction. Me art sternotomy wires are present with post-CABG clips. The heart is normal size. Mild diffuse inters titial prominence is a chronic appearance. There is a small left pleural effusion with adjacent opaci ty. This is new from prior exam. IMPRESSION: New small left pleural effusion with adjacent atelectasis and/or consolidation.
--- NOTE | 2017-01-07 19:13 | PN ---
DATE OF SERVICE: 01/07/2017. PRESENTING COMPLAINT: Weak and tired. INTERVAL HISTORY: This is a patient who is admitted with delirium secondary to uremia. Today patient is lying in bed, receiving her hemodialysis treatment. Patient states her appetite is improving. She is able to eat more. She has been up with physical therapy as well as assistance to and from the bathroom. She states she feels less confused. Review of systems done for constitutional, cardiovascular, GI, pulmonary with relevant findings as above. CURRENT MEDICATIONS: Norvasc, Pulmicort, DuoNeb, PhosLo, Questran, Lasix, Lopressor. PHYSICAL EXAMINATION: VITAL SIGNS: Temperature 99.3, pulse 86, respirations 20, blood pressure 152/73, oxygen saturation 93% on 2 liters nasal cannula. GENERAL APPEARANCE: Patient is lying in bed, receiving her hemodialysis treatment at this time. EYES: Pupils equal. Conjunctivae normal. NECK: JVD not raised. Mass not palpable. LUNGS: Diminished bilaterally. RESPIRATORY: Effort normal. CARDIOVASCULAR: First and second sounds noted. No edema. ABDOMEN: Soft, nontender. Liver and spleen not palpable. PSYCHIATRY: Alert and oriented x3. Mood and affect are normal INVESTIGATIONS: White blood cell count 18.0, hemoglobin 8.1, platelet count 311. Sodium 138, potassium 3.7, BUN 30, creatinine 3.66. ASSESSMENT: 1. Acute metabolic encephalopathy from missed hemodialysis, slowly improving. 2. Acute fluid overload from missed hemodialysis, improving. 3. End-stage kidney disease on hemodialysis, due to diabetic nephrosclerosis and hypertensive nephrosclerosis. 4. Chronic obstructive pulmonary disease in an ex-smoker. 5. Coronary artery disease with prior history of stent and bypass. 6. Hyperlipidemia. 7. Essential hypertension, uncontrolled from missed dialysis, improving. 8. Primary osteoarthritis of multiple joints bilaterally. PLAN: Continue current medication and treatment plan. Patient had dialysis today and tolerated well. Tentative discharge planning for Monday with patient to receive vein mapping on Monday and first hemodialysis on Monday as an outpatient. Patient was seen and examined by nurse practitioner, Selene Bowen, and all elements of the case discussed with attending, Dr. Carr.
[2017-01-07] MEDS: QUEtiapine 50 MG TAB PO SCH (21:15)
[2017-01-08] MEDS: SODIUM FERRIC GLUCONAT-SUCROSE 125 MG in SODIUM CHLORIDE 0.9% 100 ML IVPB SCH (07:41)
--- NOTE | 2017-01-08 07:41 | PN ---
DATE OF SERVICE: 01/07/2017 ATTENDING NOTE: This patient was seen and examined by me earlier today. I reviewed the note of my nurse practitioner, Ms. Bowen and did discuss with her. Patient is getting hemodialysis. Looks a bit more perky, more rest. Early today patient with short of breath but after getting dialyzed feeling better. On examination, blood pressure 152/53, pulse ox 93% on 2 liters. LUNGS: Decreased breath sounds. No crackles. PSYCH: Alert and oriented x3. Minimal edema if any. INVESTIGATIONS: White count 18, hemoglobin 8.1. BUN 30, creatinine 3.66. Chest x-rays were reviewed. ASSESSMENT: 1. Acute metabolic encephalopathy from missed hemodialysis, improved. 2. Acute fluid overload from missed hemodialysis, improving. 3. Chronic obstructive pulmonary disease in an ex-smoker. 4. Coronary artery disease. PLAN: Continue current medication and treatment plan. Patient's white count is up, but patient looks pretty good otherwise. Repeat labs in the morning.
[2017-01-08] MEDS: CITALOPRAM HYDROBROMIDE 20 MG TAB PO SCH (07:42)
[2017-01-08] MEDS: PRAZOSIN 1 MG CAP PO SCH (07:42)
[2017-01-08] MEDS: SODIUM BICARBONATE TAB 650 MG TAB PO SCH (07:42)
[2017-01-08] MEDS: amLODIPine 10 MG TAB PO SCH (07:42)
[2017-01-08] MEDS: FUROSEMIDE 10 MG/ML 10 ML VIAL IV SCH (07:42)
[2017-01-08] MEDS: CALCIUM ACETATE 667 MG CAP PO SCH ×2 (07:42→11:49)
[2017-01-08] MEDS: CHOLESTYRAMINE (WITH SUGAR) 4 GM PACKET PO SCH ×2 (07:42→15:25)
[2017-01-08] MEDS: ISOSORBIDE MONONITRATE ER 60 MG TAB.ER.24H PO SCH (07:43)
[2017-01-08] MEDS: ATORVASTATIN 80 MG TAB PO SCH (07:43)
[2017-01-08] MEDS: ASPIRIN 81 MG CHEW PO SCH (07:43)
[2017-01-08] MEDS: METOPROLOL TARTRATE 25 MG TAB PO SCH (07:43)
[2017-01-08] MEDS: PANTOPRAZOLE 40 MG TABLET PO SCH (07:43)
[2017-01-08] MEDS: CLOPIDOGREL 75 MG TAB PO SCH (07:43)
[2017-01-08] MEDS: predniSONE 20 MG TAB PO SCH (07:43)
[2017-01-08] MEDS: traMADol 50 MG TAB PO PRN (07:44)
[2017-01-08 07:53] VITALS: BP 149/71; RESP 20; TEMP 98
[2017-01-08] MEDS: BUDESONIDE 1 MG/2 ML NEBU INHALATION SCH (08:38)
[2017-01-08] MEDS: IPRATROPIUM-ALBUTEROL 3 ML NEB INHALATION SCH ×2 (08:38→13:33)
[2017-01-08 08:40] LABS: Basophils % (A) 0 %; CH 30.5; CHCM 31.3; Eosinophils # (A) 0.2 k/uL (0-0.7); Eosinophils % (A) 2 %; HCT 26.1 % (34.0-46.0); HGB 8.2 gm/dL (11.4-16.0); Luc # (Auto) 0.17; Luc % (Auto) 1; Lymphocytes # (A) 3.3 k/uL (1.0-4.8); Lymphocytes % (A) 21 %; MCH 30.7 pg (25.0-35.0); MCHC 31.3 g/dL (31.0-37.0); MCV 97.9 fL (80.0-100.0); Mean Platelet Volume 6.9; Monocytes # (A) 0.6 k/uL (0-1.0); Monocytes % (A) 4 %; Neutrophils # (A) 11.2 k/uL (1.3-7.7); Neutrophils % (A) 72 %; RBC 2.67 m/uL (3.80-5.40); RDW 13.5 % (11.5-15.5); WBC 15.5 k/uL (3.8-10.6); WBC (Perox) 16.04
[2017-01-08 08:41] VITALS: PULSE 80
--- NOTE | 2017-01-08 10:52 | P.PN ---
Subjective Patient seen in follow-up for end-stage renal disease. She was recently started on hemodialysis due to biopsy-proven diabetic kidney disease. Patient presented to the hospital due to hallucinations. She had a panic attack on evening as well. She has been started on Seroquel. Currently she is resting in bed. She is awake and alert. Denies chest pain or shortness of breath. No active complaints today. Vital signs are stable. General: The patient appeared well nourished and normally developed. HEENT: Head exam is unremarkable. Neck is without jugular venous distension. LUNGS: Lungs are clear to auscultation and percussion. Breath sounds decreased. HEART: Rate and Rhythm are regular. First and second heart sounds normal. No murmurs, rubs or gallops. ABDOMEN: Abdominal exam reveals normal bowel sounds. Non-tender and non- distended. No evidence of peritonitis. EXTREMITITES: No clubbing, cyanosis, or edema. Objective - Vital Signs Vital signs: Vital Signs Temp 98.0 F 01/08/17 07:00 Pulse 80 01/08/17 08:57 Resp 20 01/08/17 07:46 BP 149/71 01/08/17 07:00 Pulse Ox 97 01/08/17 07:00 Intake & Output 01/07/17 01/08/17 01/08/17 18:59 06:59 18:59 Intake Total 675 Balance 675 Intake: Oral 675 Other: Voiding Method Toilet Toilet Toilet # Voids 1 0 1 # Bowel Movements 1 1 - Labs CBC & Chem 7: 01/08/17 08:03 01/07/17 10:00 Labs: Abnormal Lab Results - Last 24 Hours (Table) 01/07/17 01/08/17 Range/Units 10:00 08:03 WBC 15.5 H (3.8-10.6) k/uL RBC 2.67 L (3.80-5.40) m/uL Hgb 8.2 L (11.4-16.0) gm/dL Hct 26.1 L (34.0-46.0) % Neutrophils # 11.2 H (1.3-7.7) k/uL BUN 30 H (7-17) mg/dL Creatinine 3.66 H (0.52-1.04) mg/dL Glucose 109 H (74-99) mg/dL Calcium 7.9 L (8.4-10.2) mg/dL Microbiology - Last 24 Hours (Table) 01/05/17 22:45 Blood Culture - Preliminary Blood No Growth after 48 hours 01/04/17 10:53 Blood Culture - Preliminary Blood No Growth after 72 hours Assessment and Plan Plan: Assessment: #1. End-stage renal disease now dialysis dependent via permacath. Last hemodialysis was on January 07. #2. Hallucinations. Resolved. Being followed by psychiatry. Cultures negative. #3. Anemia of chronic kidney disease. Iron deficiency present. #4. Chronic kidney disease mineral bone disease. #5. Hypertension with chronic kidney disease. Controlled. #6. Fluid overload. Improved. Plan: Hemodialysis Monday. Follow-up cultures. Maintain PhosLo with meals. Continue IV Lasix 60 mg twice daily. Stable to be discharged home from nephrology standpoint. She is to get vein mapping done on Monday and can start hemodialysis Monday at the outpatient center.
--- NOTE | 2017-01-08 16:40 | DS ---
DATE OF ADMISSION: 01/04/2017 DATE OF DISCHARGE: 01/08/2017 FINAL DIAGNOSES: 1. Acute metabolic encephalopathy from missed hemodialysis on presentation. 2. Acute fluid overload from missed hemodialysis present on admission. 3. End-stage kidney disease, on hemodialysis from diabetic nephropathy and hypertensive nephrosclerosis. 4. Chronic obstructive pulmonary disease in an ex-smoker. 5. Coronary artery disease with prior history of stent and bypass. 6. Hyperlipidemia. 7. Essential hypertension, controlled, with urgency present on admission. 8. Primary osteoarthritis of multiple joints, bilaterally. HOSPITAL COURSE: This patient was just discharged from the hospital, presented with encephalopathy from having missed hemodialysis. There was some confusion of the schedule. Also, fluid overload. Did well after repeat dialysis. Doing much better now. On examination, LUNGS: Decreased breath sounds. CARDIOVASCULAR: First and second sounds normal. PSYCH: Alert and oriented x3. Mood and affect is normal. Patient was seen by psychiatry, Dr. Omalley. CT scan of the brain showed some chronic changes. He did stop patient's Xanax and switched her over to Seroquel. Also consultation from Dr. Zimmer from nephrology. Today care was discussed in detail with the patient. Questions were answered. Discharge planning more than 35 minutes. DISCHARGE MEDICATIONS: 1. Celexa 40 mg a day. 2. Imdur ER 60 mg a day. 3. Ultram 50 mg q.4 p.r.n. 4. Flonase 2 sprays each nostril daily p.r.n. 5. Nitrostat 0.4 sublingual q.5 p.r.n. 6. Lipitor 80 mg p.o. daily. 7. Plavix 75 mg p.o. daily. 8. Lopressor 25 mg p.o. b.i.d. 9. Aspirin 81 mg p.o. daily. 10. Questran 4 grams p.o. t.i.d. with meals. 11. Imodium 2 mg p.o. q.i.d. p.r.n. 12. Sodium bicarb 600 mg p.o. b.i.d. 13. Pulmicort 1 mg nebulizer b.i.d. 14. PhosLo 1 capsule p.o. t.i.d. 15. DuoNeb t.i.d. 16. Minipress 2 mg p.o. t.i.d. 17. Norvasc 10 mg p.o. daily. 18. Prednisone taper to complete. 19. Seroquel 50 mg p.o. q.h.s. Follow with Dr. Encarnacion in one week, follow with Dr. Zimmer on 01/10/2017. Follow with Dr. Eric Muse on 01/09/17. Patient due to have vein mapping on Monday.
[2017-01-09 09:52] LABS: Hepatitis B Surface Antibody Negative (Negative)
--- NOTE | 2017-01-10 23:24 | HP ---
DATE OF ADMISSION: 01/10/2017 PRESENTING COMPLAINT: Chest pains, "not feeling right." HISTORY OF PRESENTING COMPLAINT: This is a pleasant 61-year-old female who was just discharged from the hospital on Monday. At that time, patient was found to have delirium associated with acute renal failure/failure to receive hemodialysis treatments. Today, patient was at her first outpatient hemodialysis treatment and she was almost completing the end of it and began to feel hot. It began at her feet and worked its way up. Then she began to have serious chest pain, became nauseated, started to sweat. Subsequently EMS was called and she was brought to the hospital. On the monitor, patient was found to be in A. fib with RVR. Heart rate was in about the 170s. Patient does state that she has had symptoms similar to this during dialysis in the past and has been admitted for that reason previously. REVIEW OF SYSTEMS: CONSTITUTIONAL: Pale, weak and tired. RESPIRATORY: Mildly short of breath. CARDIOVASCULAR: Chest pressure currently. GASTROINTESTINAL: Nausea, MUSCULOSKELETAL: None. DERMATOLOGICAL: None. HEMATOLOGICAL: None. LYMPHATIC: None. PSYCHIATRY: Feels tired and confused and anxious. NEUROLOGICAL: Nonfocal. PAST MEDICAL HISTORY: 1. End-stage kidney disease on hemodialysis. 2. COPD in an ex-smoker. 3. Coronary artery disease with a prior history of stent and coronary artery bypass. 4. Diabetes mellitus type 2, not on any medications any more. 5. Hyperlipidemia. 6. Essential hypertension. 7. Primary osteoarthritis, multiple joints bilateral. PAST SURGICAL HISTORY: , coronary artery bypass, cardiac cath with stent, tubal ligation, triple bypass in August [address] [facility] in [place], stent in the right groin, EGD, colonoscopy with multiple polyps removed. SOCIAL HISTORY: Patient lives with her daughter. Patient has smoked 1/2 pack a day for many years, stopped a few weeks ago. Alcohol: None. FAMILY HISTORY: Myocardial infarction, COPD, hypertension, brain and lung cancer. HOME MEDICATIONS: 1. Tramadol 50 mg p.o. q.4 hours p.r.n. 2. Prednisone 20 mg p.o. daily. 3. Amlodipine 10 mg p.o. daily. 4. Sodium bicarb tabs 650 mg p.o. a.c.-b.i.d. 5. Seroquel 50 mg p.o. at bedtime. 6. Prazosin 2 mg p.o. t.i.d. 7. Nitroglycerin sublingual tabs 0.4 mg sublingual q.5 minutes p.r.n. 8. Metoprolol 25 mg p.o. b.i.d. 9. Loperamide 2 mg p.o. q.i.d. p.r.n. 10. Imdur 60 mg p.o. daily. 11. DuoNeb inhalation t.i.d. 12. Fluticasone 2 sprays each nostril daily p.r.n. 13. Plavix 75 mg p.o. daily. 14. Celexa 40 mg p.o. daily. 15. Questran 4 mg p.o. t.i.d. between meals. 16. Calcium acetate 667 mg p.o. t.i.d. with meals. 17. Budesonide 1 mg inhalation b.i.d. 18. Atorvastatin 80 mg p.o. daily. 19. Aspirin 81 mg p.o. daily ALLERGIES: PENICILLIN AND GARLIC. PHYSICAL EXAM: VITAL SIGNS: Temperature 97.8, pulse 78, respirations 18, blood pressure 145/63, oxygen saturation 95% on room air. GENERAL APPEARANCE: Well-built, lying on the gurney, tired-appearing, pale. EYES: Pupils equal, conjunctivae normal. HEENT: Oral cavity normal. NECK: JVD not raised. Mass not palpable. RESPIRATORY: Effort increased. LUNGS: Diminished breath sounds bilaterally. CARDIOVASCULAR: First and second sounds irregular. Mild edema. ABDOMEN: Soft, nontender. Liver and spleen not palpable. LYMPHATICS: No lymph nodes palpable in the neck or the axillae. PSYCHIATRY: Patient is able to answer questions. Appears anxious, but calm and cooperative otherwise. CHEST WALL: Right chest wall with a hemodialysis catheter. NEUROLOGIC: Pupils equal. Cranial nerves grossly intact. Moving all 4 limbs. INVESTIGATIONS: Hemoglobin 8.8. Sodium 133, potassium 3.2, creatinine 2.16, BUN 13. Total CK 151, CK-MB 3.6. Troponin 0.122. Chest x-ray: Mild venous congestion with a small bilateral effusion and left basilar infiltrate. ECG: Normal sinus rhythm. ASSESSMENT: 1. New onset atrial fibrillation with rapid ventricular response. 2. End-stage kidney disease on hemodialysis due to diabetic nephrosclerosis and hypertensive nephrosclerosis. 3. Chronic obstructive pulmonary disease in an ex-smoker. 4. Coronary artery disease with prior history of stents and bypass. 5. Hyperlipidemia. 6. Essential hypertension, uncontrolled. 7. Primary osteoarthritis in multiple joints bilaterally. PLAN: Home medications are resumed. Cardiology is consulted, as is Nephrology. Plan of care was discussed with the patient at the bedside. Will follow. Patient was seen and examined by Nurse Practitioner, Selene Bowen, and all elements of the case discussed with attending, Dr. Carr. I performed a history and physical examination of this patient and discussed the same with the dictator. I agree with the dictator's note. Any additional findings/opinions, etc. will be noted.
== END 2017-01-08 15:30 | disposition home or self-care (01) | DRG 640 ==
LOC: EC 08:39 → 4MS4W 14:06
PROVIDERS: ADMIT Hospitalist; ATTEND Hospitalist
PROC: 5A1D60Z (ICD-10-PCS; principal; 2017-01-06)
DX: E87.70 Fluid overload, unspecified (principal); G93.41 Metabolic encephalopathy; N18.6 End stage renal disease; I12.0 Hypertensive chronic kidney disease with stage 5 chronic kidney disease or end stage renal disease; R44.3 Hallucinations, unspecified; E11.22 Type 2 diabetes mellitus with diabetic chronic kidney disease; I48.91 Unspecified atrial fibrillation; G25.3 Myoclonus; J44.9 Chronic obstructive pulmonary disease, unspecified; E83.9 Disorder of mineral metabolism, unspecified; E78.5 Hyperlipidemia, unspecified; D63.1 Anemia in chronic kidney disease; F17.210 Nicotine dependence, cigarettes, uncomplicated; F41.0 Panic disorder [episodic paroxysmal anxiety]; I25.10 Atherosclerotic heart disease of native coronary artery without angina pectoris; I25.2 Old myocardial infarction; M15.9 Polyosteoarthritis, unspecified; H26.9 Unspecified cataract; F40.240 Claustrophobia; D50.9 Iron deficiency anemia, unspecified; Z79.02 Long term (current) use of antithrombotics/antiplatelets; Z79.82 Long term (current) use of aspirin; Z79.899 Other long term (current) drug therapy; Z79.52 Long term (current) use of systemic steroids; Z88.0 Allergy status to penicillin; Z95.1 Presence of aortocoronary bypass graft; Z99.2 Dependence on renal dialysis; Z82.49 Family history of ischemic heart disease and other diseases of the circulatory system
CPT/HCPCS: 36415; 70450; 71020; 80048; 80053; 80306; 81001; 82728; 83540; 83550; 83690; 84100; 84443; 85025; 85027; 85610; 85730; 86704; 86706; 87040; 87086; 87340; 90935; 93005; 94640; 96360; 96361; 99285

== ENCOUNTER 2017-01-10 11:52 | Inpatient (IN) | payer MEDICARE, OTHER ==
[2017-01-10] MEDS ORDERED: DILTIAZEM 125 MG in SODIUM CHLORIDE 0.9% 100 ML IV ONE (12:00)
--- NOTE | 2017-01-10 12:00 | ED ---
Chest Pain HPI - General Stated Complaint: Chest Pain Time Seen by Provider: 01/10/17 11:52 Source: patient, EMS, RN notes reviewed, old records reviewed Mode of arrival: EMS - History of Present Illness Initial Comments: This is a 7-year-old female who was recently started dialysis who just finished dialysis today which started developing a burning sensation going from her feet up into her chest into her left arm. She also was noted per EMS have A. fib with RVR with a rate of about 170.. She denied any overt chest pain or shortness of breath other than that mentioned above. Apparently he has had symptoms similar to this in the past and was recently admitted to the hospital. MD Complaint: chest pain, other - Related Data Home Medications Medication Instructions Recorded Confirmed Citalopram Hydrobromide [CeleXA] 40 mg PO DAILY 01/28/15 01/10/17 Isosorbide Mononitrate ER [Imdur] 60 mg PO DAILY 01/28/15 01/10/17 traMADol HCl [Ultram] 50 mg PO Q4H PRN 01/28/15 01/10/17 Fluticasone Nasal Reed [Flonase 2 spray EA NOSTRIL DAILY PRN 05/25/15 01/10/17 Nasal Reed] Aspirin [Adult Low Dose Aspirin EC] 81 mg PO DAILY 10/21/16 01/10/17 Sodium Bicarbonate Tab 650 mg PO AC-BID 12/28/16 01/10/17 Previous Rx's Medication Instructions Recorded Nitroglycerin Sl Tabs [Nitrostat] 0.4 mg SUBLINGUAL Q5M PRN #25 tab 05/29/15 Atorvastatin [Lipitor] 80 mg PO DAILY #30 tab 06/10/15 Clopidogrel [Plavix] 75 mg PO DAILY #30 tab 06/10/15 Metoprolol Tartrate [Lopressor] 25 mg PO BID #60 tab 06/10/15 Cholestyramine (with Sugar) 4 gm PO TID BETWEEN MEALS #30 10/23/16 [Questran Packet] packet Loperamide [Imodium] 2 mg PO QID PRN #30 cap 10/23/16 Budesonide [Pulmicort] 1 mg INHALATION RT-BID #60 nebu 01/02/17 Calcium Acetate [PhosLo] 667 mg PO TID-W/MEALS #90 cap 05/15/17 Ipratropium-Albuterol Nebulize 3 ml INHALATION RT-TID #90 01/02/17 [Duoneb 0.5 mg-3 mg/3 ml Soln] ampul.neb Prazosin [Minipress] 2 mg PO TID #90 cap 01/02/17 amLODIPine [Norvasc] 10 mg PO DAILY #30 tab 01/02/17 predniSONE 20 mg PO DAILY #4 tab 01/02/17 QUEtiapine [SEROquel] 50 mg PO HS #30 tab 01/08/17 Allergies Allergy/AdvReac Type Severity Reaction Status Date / Time Penicillins Allergy Rash/Hives Verified 01/10/17 12:40 garlic AdvReac Vomiting Verified 01/10/17 12:40 Review of Systems ROS Statement: Those systems with pertinent positive or pertinent negative responses have been documented in the HPI. ROS Other: All systems not noted in ROS Statement are negative. EKG Findings - EKG Results: EKG: interpreted by ERMD, sinus rhythm (Sinus rhythm rate of 85. Interval 120 QRS duration 82 QT/QTC of 43/511 prolonged QT nonspecific T-wave configuration.) Past Medical History Past Medical History: Coronary Artery Disease (CAD), COPD, Diabetes Mellitus, Deep Vein Thrombosis (DVT), Hyperlipidemia, Hypertension, Osteoarthritis (OA), Renal Disease Additional Past Medical History / Comment(s): right leg blood clot post CABG, CATARACTS, SINUS PROBLEMS. STATED "WT DOWN FROM 258 TO 166 OVER PAST YEAR STATED D/T INTERMITTENT N/V/D. CURRNETLY NO PRONLEMS W/DIARRHEA" Last Myocardial Infarction Date:: August 2009 History of Any Multi-Drug Resistant Organisms: None Reported Past Surgical History: Section, Coronary Bypass/CABG, Heart Catheterization With Stent, Tubal Ligation Additional Past Surgical History / Comment(s): triple bypass. heart cath in august 2009 at [facility] in [place]. "stent in right groin" RT KIDNEY BX. EGD/COLONOSCOPY MULTIPLE POLYPS REMOVED. PT HAD RECENT TEMPORARY HEMODIALYSIS CATHETER INSERTED TO RIGHT CHEST WALL DURING LAST ADMISSION. Past Anesthesia/Blood Transfusion Reactions: No Reported Reaction, Motion Sickness Additional Past Anesthesia/Blood Transfusion Reaction / Comment(s): BLOOD TRANSFUSION A BABY, CLAUSTERPHOBIA Date of Last Stent Placement:: August 2009 Past Psychological History: No Psychological Hx Reported Additional Psychological History / Comment(s): [employer], RETIRED/DISABILTY. USED TO WORK A NURSE AID. Her adult daughter who is 35 lives with her.LIVES IN SINGLE LEVEL HOME THAT HAS 1 STEP, CANE, GLUCOMETER. Ongoing tobacco smoker from her teenage years. Denies significant alcohol or recreational drug use. No experience. No travel history. No animals in the home at this point in time. His move back to [place] after many years living in the [facility] the [facility], she would call this home. Smoking Status: Current every day smoker Past Alcohol Use History: None Reported Additional Past Alcohol Use History / Comment(s): STARTED SMOKING AT AGE 19- QUIT WHEN WITH DAUGHTER THEN RESTARTED SMOKES 10-15 CIGr Past Drug Use History: None Reported - Past Family History Father Family Medical History: COPD, Hypertension, Myocardial Infarction (ID) Mother Family Medical History: Cancer, Myocardial Infarction (ID) Additional Family Medical History / Comment(s): brain and lung cancer Sister(s) Family Medical History: Cancer, Diabetes Mellitus, Myocardial Infarction (ID) Additional Family Medical History / Comment(s): heart cath with stent General Exam - General Exam Comments Initial Comments: Is a well-developed well-nourished awake alert oriented 3 female General appearance: alert, anxious Head exam: Present: atraumatic, normocephalic, normal inspection Eye exam: Present: normal appearance, PERRL, EOMI. Absent: scleral icterus, conjunctival injection, periorbital swelling ENT exam: Present: normal exam, mucous membranes moist Neck exam: Present: normal inspection. Absent: tenderness, meningismus, lymphadenopathy Respiratory exam: Present: normal lung sounds bilaterally, chest wall tenderness , other (Right chest wall dialysis catheter is present). Absent: respiratory distress, wheezes, rales, rhonchi, stridor Cardiovascular Exam: Present: tachycardia. Absent: systolic murmur, diastolic murmur, rubs, gallop, clicks GI/Abdominal exam: Present: soft, normal bowel sounds. Absent: distended, tenderness, guarding, rebound, rigid Extremities exam: Present: normal inspection, full ROM, normal capillary refill. Absent: tenderness, pedal edema, joint swelling, calf tenderness Back exam: Present: normal inspection Neurological exam: Present: alert, oriented X3, CN II-XII intact Psychiatric exam: Present: normal affect, normal mood Skin exam: Present: warm, dry, intact, normal color. Absent: rash Course Vital Signs 01/10/17 01/10/17 01/10/17 11:57 12:55 13:53 Temperature 98 F Pulse Rate 87 80 77 Respiratory 16 20 20 Rate Blood Pressure 151/87 184/79 179/82 O2 Sat by Pulse 97 99 Oximetry Chest Pain MDM - MDM I did review the imaging and report there is evidence of mild bibasilar effusion and some left basilar infiltrate mild venous congestion the patient will be admitted to discuss case Dr. Carr. She did spontaneously convert from A. fib to sinus rhythm she does have elevation of her troponin. No chest pain at this time Disposition Clinical Impression: Rapid atrial fibrillation, Chronic renal failure, Elevated troponin, Unstable angina pectoris Disposition: ADMITTED IP TO THIS HOSP Condition: Stable Referrals: Francis Encarnacion DO [Primary Care Provider] - 1-2 days
[2017-01-10 13:07] LABS: Basophils % (A) 0 %; CH 31.1; CHCM 32.7; Eosinophils # (A) 0.3 k/uL (0-0.7); Eosinophils % (A) 3 %; HCT 26.9 % (34.0-46.0); HDW 2.49; HGB 8.8 gm/dL (11.4-16.0); Luc # (Auto) 0.06; Luc % (Auto) 1; Lymphocytes # (A) 1.4 k/uL (1.0-4.8); Lymphocytes % (A) 14 %; MCH 31.3 pg (25.0-35.0); MCHC 32.7 g/dL (31.0-37.0); MCV 95.6 fL (80.0-100.0); Mean Platelet Volume 7.1; Monocytes # (A) 0.4 k/uL (0-1.0); Monocytes % (A) 4 %; Neutrophils % (A) 79 %; RBC 2.82 m/uL (3.80-5.40); RDW 13.7 % (11.5-15.5); WBC 10.1 k/uL (3.8-10.6); WBC (Perox) 10.59
[2017-01-10 13:12] LABS: Partial Thromboplastin Time 23.6 sec (22.0-30.0)
[2017-01-10 13:19] LABS: Calcium 7.7 mg/dL (8.4-10.2); Magnesium 1.6 mg/dL (1.6-2.3); Potassium 3.2 mmol/L (3.5-5.1); Total Bilirubin 0.6 mg/dL (0.2-1.3); Total Protein 5.2 g/dL (6.3-8.2)
--- NOTE | 2017-01-10 13:26 | XR ---
EXAMINATION TYPE: XR chest 2V DATE OF EXAM: 01/10/2017 1:20 PM COMPARISON: 01/07/2017 TECHNIQUE: PA and lateral views submitted. HISTORY: Chest pain FINDINGS: Postoperative change and dialysis catheter seen with left lower lobe infiltrate and small effusion. M ild central venous congestion. Tiny right effusion. Correlate for previous coronary artery stenting. Arthropathy of the shoulders. No pneumothorax. IMPRESSION: 1. Mild venous congestion with small bilateral effusions and left basilar infiltrate.
[2017-01-10 13:47] LABS: Creatine Kinase MB 3.6 ng/mL (0.0-2.4); Troponin I 0.122 ng/mL (0.000-0.034)
[2017-01-10] MEDS ORDERED: NITROGLYCERIN SL TABS 0.4 MG TAB SUBLINGUAL PRN ×2 (15:59→16:02)
[2017-01-10] MEDS ORDERED: HEPARIN SODIUM,PORCINE 5,000 UNIT/ML 1 ML VIAL IV ONE (15:59)
[2017-01-10] MEDS ORDERED: HEPARIN SODIUM,PORCINE/D5W PMX 25,000 UNIT in DEXTROSE/WATER 1 500ML.BAG IV SCH (16:00)
[2017-01-10] MEDS ORDERED: FLUTICASONE 50MCG/SPRAY NASAL 16GM EA NOSTRIL PRN (16:02)
[2017-01-10] MEDS ORDERED: LOPERAMIDE 2 MG CAP PO PRN (16:02)
[2017-01-10] MEDS: SODIUM CHLORIDE 0.9% 1,000 ML IV SCH (16:40)
[2017-01-10] MEDS: NITROGLYCERIN OINT 1 INCH/GM PACKET TOPICAL SCH ×2 (17:21→23:42)
[2017-01-10] MEDS: CHOLESTYRAMINE (WITH SUGAR) 4 GM PACKET PO SCH (17:21)
[2017-01-10] MEDS: CALCIUM ACETATE 667 MG CAP PO SCH (17:21)
[2017-01-10] MEDS: SODIUM BICARBONATE TAB 650 MG TAB PO SCH (17:21)
[2017-01-10] MEDS: IPRATROPIUM-ALBUTEROL 3 ML NEB INHALATION SCH (19:22)
[2017-01-10] MEDS: BUDESONIDE 1 MG/2 ML NEBU INHALATION SCH (19:22)
[2017-01-10 19:43] LABS: Creatine Kinase MB 3.2 ng/mL (0.0-2.4)
[2017-01-10 19:44] LABS: Troponin I 0.11 ng/mL (0.000-0.034)
[2017-01-10 20:59] LABS: Glucose,Whole Blood 110 mg/dL (75-99)
[2017-01-10] MEDS ORDERED: METOPROLOL TARTRATE 25 MG TAB PO SCH (21:00)
[2017-01-10] MEDS: PRAZOSIN 1 MG CAP PO SCH (22:14)
[2017-01-10] MEDS: traMADol 50 MG TAB PO PRN (22:14)
[2017-01-10] MEDS: QUEtiapine 50 MG TAB PO SCH (22:14)
[2017-01-11] MEDS ORDERED: HEPARIN SODIUM,PORCINE 5,000 UNIT/ML 1 ML VIAL IV PRN (01:24)
[2017-01-11 01:29] LABS: Troponin I 0.091 ng/mL (0.000-0.034)
[2017-01-11 05:56] LABS: Glucose,Whole Blood 93 mg/dL (75-99)
[2017-01-11] MEDS: INSULIN LISPRO (humaLOG) 300 UNIT/3 ML VIAL SQ SCH ×4 (06:54→20:52)
[2017-01-11] MEDS: CALCIUM ACETATE 667 MG CAP PO SCH ×3 (06:57→17:24)
[2017-01-11] MEDS: SODIUM BICARBONATE TAB 650 MG TAB PO SCH (06:57)
[2017-01-11 08:39] LABS: Cholesterol 170 mg/dL (<200); HDL Cholesterol 91 mg/dL (40-60); Triglycerides 156 mg/dL (<150)
--- NOTE | 2017-01-11 08:58 | P.CRDCN ---
<Anabella Arambula E - Last Filed: 01/11/17 09:04> History of Present Illness Consult date: 01/11/17 Requesting physician: Devin Carr Consult reason: atrial fibrillation Chief complaint: Left leg pain History of present illness: Is a 61-year-old female who follows regularly with Dr. Iqbal in the office. She has a known history of coronary artery disease with prior bypass surgery, prior LAD stenting, hypertension, hyperlipidemia, diabetes, peripheral vascular disease, nicotine dependence, end-stage renal disease on hemodialysis. Apparently the patient had just had a dialysis treatment and began experiencing pain in her left leg that radiated up the entire leg into the chest and through to her back. She states that she had these symptoms prior which she went into an irregular heartbeat. On EMS arrival patient was noted to be in atrial fibrillation with a rapid ventricular response. Patient denies any chest pressure or heaviness overall her breathing was stable. She did complain of some mild nausea. EKG performed in the EMS did reveal atrial fibrillation with rapid ventricular response, EKG performed on arrival here showed a normal sinus rhythm with nonspecific ST-T wave changes. Chest x-ray performed revealed mild venous congestion with small bilateral effusions and left basilar infiltrate. Let pressure on arrival 150/80 with a heart rate in the 80s, 97% on room air. White blood cell count 10.1, hemoglobin 8.8, potassium 3.2, BUN 13, creatinine 2.1. Magnesium level I.6, troponin 0.12, 0.11 , 0.09. According to the patient, she has no prior documented history of atrial fibrillation. I did have a discussion with the patient this morning regarding the importance of anticoagulation for stroke prevention. We'll check to see if the patient has coverage for one of the newer anticoagulants, and we will discontinue the aspirin and continue Plavix along with xarelto. Past Medical History Past Medical History: Coronary Artery Disease (CAD), COPD, Diabetes Mellitus, Deep Vein Thrombosis (DVT), Hyperlipidemia, Hypertension, Osteoarthritis (OA), Renal Disease Additional Past Medical History / Comment(s): right leg blood clot post CABG, CATARACTS, SINUS PROBLEMS. STATED "WT DOWN FROM 258 TO 166 OVER PAST YEAR STATED D/T INTERMITTENT N/V/D. CURRNETLY NO PRONLEMS W/DIARRHEA" Last Myocardial Infarction Date:: August 2009 History of Any Multi-Drug Resistant Organisms: None Reported Past Surgical History: Section, Coronary Bypass/CABG, Heart Catheterization With Stent, Tubal Ligation Additional Past Surgical History / Comment(s): triple bypass. heart cath in august 2009 at [facility] in [place]. "stent in right groin" RT KIDNEY BX. EGD/COLONOSCOPY MULTIPLE POLYPS REMOVED. PT HAD RECENT TEMPORARY HEMODIALYSIS CATHETER INSERTED TO RIGHT CHEST WALL DURING LAST ADMISSION. Past Anesthesia/Blood Transfusion Reactions: No Reported Reaction, Motion Sickness Additional Past Anesthesia/Blood Transfusion Reaction / Comment(s): BLOOD TRANSFUSION A BABY, CLAUSTERPHOBIA Date of Last Stent Placement:: August 2009 Past Psychological History: Anxiety Additional Psychological History / Comment(s): [employer], RETIRED/DISABILTY. USED TO WORK A NURSE AID. Her adult daughter who is 35 lives with her.LIVES IN SINGLE LEVEL HOME THAT HAS 1 STEP, CANE, GLUCOMETER. Ongoing tobacco smoker from her teenage years. Denies significant alcohol or recreational drug use. No experience. No travel history. 2 cats animals in the home at this point in time. His move back to [place] after many years living in the [facility] of [facility], she would call this home. Smoking Status: Current every day smoker Past Alcohol Use History: None Reported Additional Past Alcohol Use History / Comment(s): STARTED SMOKING AT AGE 19- QUIT WHEN WITH DAUGHTER THEN RESTARTED SMOKES 10-15 CIGr. Currently has not smoked in 2 weeks 01/10/17 Past Drug Use History: None Reported - Past Family History Father Family Medical History: COPD, Hypertension, Myocardial Infarction ([place]) Mother Family Medical History: Cancer, Myocardial Infarction ([place]) Additional Family Medical History / Comment(s): brain and lung cancer Sister(s) Family Medical History: Cancer, Diabetes Mellitus, Liver Disease, Myocardial Infarction ([place]) Additional Family Medical History / Comment(s): heart cath with stent; . Brain and lung cancer Medications and Allergies Home Medications Medication Instructions Recorded Confirmed Type Citalopram Hydrobromide [CeleXA] 40 mg PO DAILY 01/28/15 01/10/17 History Isosorbide Mononitrate ER [Imdur] 60 mg PO DAILY 01/28/15 01/10/17 History traMADol HCl [Ultram] 50 mg PO Q4H PRN 01/28/15 01/10/17 History Fluticasone Nasal Kinsley [Flonase 2 spray EA NOSTRIL DAILY PRN 05/25/15 01/10/17 History Nasal Kinsley] Aspirin [Adult Low Dose Aspirin EC] 81 mg PO DAILY 10/21/16 01/10/17 History Sodium Bicarbonate Tab 650 mg PO AC-BID 12/28/16 01/10/17 History Allergies Allergy/AdvReac Type Severity Reaction Status Date / Time Penicillins Allergy Rash/Hives Verified 01/10/17 12:40 garlic AdvReac Vomiting Verified 01/10/17 12:40 Physical Exam Vitals: Vital Signs Temp Pulse Pulse Resp BP BP Pulse Ox 01/11/17 03:38 97.3 F L 76 18 140/62 96 01/11/17 00:00 98.2 F 73 18 162/81 98 01/10/17 20:29 97.8 F 78 18 145/63 95 01/10/17 19:38 84 01/10/17 19:25 77 01/10/17 19:17 78 18 175/87 95 01/10/17 18:50 80 18 176/77 97 01/10/17 18:00 79 18 165/79 96 01/10/17 17:57 97.7 F 76 18 160/73 97 01/10/17 16:38 98.1 F 80 16 177/76 97 01/10/17 13:53 77 20 179/82 01/10/17 12:55 80 20 184/79 99 01/10/17 11:57 98 F 87 16 151/87 97 Intake and Output 01/10/17 01/11/17 01/11/17 22:59 06:59 14:59 Intake Total 419.261 Output Total 250 Balance -250 419.261 Intake: IV 268.70 Heparin Sodium,Porcine/ 108.70 D5w Pmx 25,000 unit In Dextrose/Water 1 500ml. bag @ 12 UNITS/KG/HR 16. 76 mls/hr IV .Q24H [facility] Rx #:[id number] Sodium Chloride 0.9% 1, 160 000 ml @ 20 mls/hr IV . Q24H [facility] Rx#:[id number] Intake, IV Titration 150.561 Amount Heparin Sodium,Porcine/ 150.561 D5w Pmx 25,000 unit In Dextrose/Water 1 500ml. bag @ 12 UNITS/KG/HR 16. 76 mls/hr IV .Q24H [facility] Rx #:[id number] Output: Urine 250 Other: Voiding Method Bedside Commode # Voids 1 Weight 69.853 kg 81.1 kg PHYSICAL EXAMINATION: HEENT: Head is atraumatic, normocephalic. Pupils equal, round. Neck is supple. There is no elevated jugular venous pressure. HEART EXAMINATION: Heart S1, S2 normal. No murmur or gallop heard. CHEST EXAMINATION: Lungs are clear to auscultation and precussion. No chest wall tenderness is noted on palpation or with deep breathing. ABDOMEN: Soft, nontender. Bowel sounds are heard. No organomegaly noted. EXTREMITIES: 2+ peripheral pulses with no evidence of peripheral edema and no calf tenderness noted. NEUROLOGIC patient is awake, alert and oriented -3. . Results 01/10/17 12:50 01/10/17 12:50 Cardiac Enzymes 01/10/17 01/10/17 01/10/17 Range/Units 12:50 12:50 18:44 AST 27 (14-36) U/L CK-MB (CK-2) 3.6 H* 3.2 H* (0.0-2.4) ng/mL Troponin I 0.122 H* 0.110 H* (0.000-0.034) ng/mL 01/11/17 Range/Units 00:28 AST (14-36) U/L CK-MB (CK-2) 3.0 H* (0.0-2.4) ng/mL Troponin I 0.091 H* (0.000-0.034) ng/mL Coagulation 01/10/17 01/11/17 Range/Units 12:50 00:28 PT 10.0 (9.0-12.0) sec APTT 23.6 29.6 (22.0-30.0) sec CBC 01/10/17 Range/Units 12:50 WBC 10.1 (3.8-10.6) k/uL RBC 2.82 L (3.80-5.40) m/uL Hgb 8.8 L (11.4-16.0) gm/dL Hct 26.9 L (34.0-46.0) % Plt Count 295 (150-450) k/uL Comprehensive Metabolic Panel 01/10/17 Range/Units 12:50 Sodium 133 L (137-145) mmol/L Potassium 3.2 L (3.5-5.1) mmol/L Chloride 99 (98-107) mmol/L Carbon Dioxide 28 (22-30) mmol/L BUN 13 (7-17) mg/dL Creatinine 2.16 H (0.52-1.04) mg/dL Glucose 109 H (74-99) mg/dL Calcium 7.7 L (8.4-10.2) mg/dL AST 27 (14-36) U/L ALT 28 (9-52) U/L Alkaline Phosphatase 93 (38-126) U/L Total Protein 5.2 L (6.3-8.2) g/dL Albumin 2.5 L (3.5-5.0) g/dL Current Medications Generic Name Dose Route Start Last Admin Trade Name Freq PRN Reason Stop Dose Admin Albuterol/Ipratropium 3 ml 01/10/17 20:00 01/10/17 19:22 Duoneb 0.5 Mg-3 Mg/3 Ml Soln INHALATION 3 ml RT-TID [facility] Administration Amlodipine Besylate 10 mg 01/11/17 09:00 Norvasc PO DAILY [facility] Aspirin 325 mg 01/11/17 09:00 Aspirin PO DAILY [facility] Atorvastatin Calcium 80 mg 01/11/17 09:00 Lipitor PO DAILY [facility] Budesonide 1 mg 01/10/17 20:00 01/10/17 19:22 Pulmicort INHALATION 1 mg RT-BID [facility] Administration Calcium Acetate 667 mg 01/10/17 17:30 01/11/17 06:57 Phoslo PO 667 mg TID-W/MEALS [facility] Administration Cholestyramine Resin 4 gm 01/10/17 18:00 01/10/17 17:21 Questran PO 4 gm TID BETWEEN MEALS [facility] Administration Citalopram Hydrobromide 40 mg 01/11/17 09:00 Celexa PO DAILY [facility] Clopidogrel Bisulfate 75 mg 01/11/17 09:00 Plavix PO DAILY [facility] Fluticasone Propionate 2 spray 01/10/17 16:02 Flonase Nasal Kinsley EA NOSTRIL DAILY PRN Allergy Symptoms Heparin Sodium (Porcine) 0 unit 01/11/17 01:24 01/11/17 01:49 Heparin IV 3,500 unit PER PROTOCOL PRN Administration Low PTT Protocol Diltiazem HCl 125 mg/ Sodium 125 mls @ 5 mls/hr 01/10/17 12:00 01/10/17 22:04 Chloride IV 01/11/17 11:59 Not Given .Q24H ONE Protocol 5 MG/HR Heparin Sodium/Dextrose 25,000 500 mls @ 16.76 mls/hr 01/10/17 16:00 01:48 unit/ IV Solution IV 15 units/kg/hr .Q24H [facility] 20.95 mls/hr Protocol Titration 12 UNITS/KG/HR Sodium Chloride 1,000 mls @ 20 mls/hr 01/10/17 16:00 01/10/17 16:40 Saline 0.9% IV 20 mls/hr .Q24H [facility] Administration Insulin Human Lispro 0 unit 01/11/17 07:30 01/11/17 06:54 Humalog SQ Not Given ACHS [facility] Protocol Isosorbide Mononitrate 60 mg 01/11/17 09:00 Imdur PO DAILY [facility] Loperamide HCl 2 mg 01/10/17 16:02 Imodium PO QID PRN Diarrhea Metoprolol Tartrate 25 mg 01/10/17 21:00 01/10/17 22:14 Lopressor PO 25 mg BID [facility] Administration Nitroglycerin 0.4 mg 01/10/17 15:59 Nitrostat SUBLINGUAL Q5M PRN Chest Pain Prazosin HCl 2 mg 01/10/17 22:00 01/10/17 22:14 Minipress PO 2 mg TID [facility] Administration Prednisone 20 mg 01/11/17 09:00 PO DAILY [facility] Quetiapine Fumarate 50 mg 01/10/17 21:00 01/10/17 22:14 Seroquel PO 50 mg HS [facility] Administration Tramadol HCl 50 mg 01/10/17 16:02 01/10/17 22:14 Ultram PO 50 mg Q4H PRN Administration Pain Intake and Output 01/10/17 01/11/17 01/11/17 22:59 06:59 14:59 Intake Total 419.261 Output Total 250 Balance -250 419.261 Intake: IV 268.70 Heparin Sodium,Porcine/ 108.70 D5w Pmx 25,000 unit In Dextrose/Water 1 500ml. bag @ 12 UNITS/KG/HR 16. 76 mls/hr IV .Q24H [facility] Rx #:[id number] Sodium Chloride 0.9% 1, 160 000 ml @ 20 mls/hr IV . Q24H [facility] Rx#:[id number] Intake, IV Titration 150.561 Amount Heparin Sodium,Porcine/ 150.561 D5w Pmx 25,000 unit In Dextrose/Water 1 500ml. bag @ 12 UNITS/KG/HR 16. 76 mls/hr IV .Q24H [facility] Rx #:[id number] Output: Urine 250 Other: Voiding Method Bedside Commode # Voids 1 Weight 69.853 kg 81.1 kg 01/10/17 12:50 01/10/17 12:50 EKG Interpretations (text) Initial EMS EKG shows atrial fibrillation with rapid ventricular response, EKG performed on arrival here shows normal sinus rhythm with nonspecific ST-T wave changes Assessment and Plan Plan: Assessment and plan #1 atrial fibrillation with rapid ventricular response, paroxysmal, patient currently in normal sinus rhythm. #2 end-stage renal disease on dialysis #3 known history of coronary artery disease with prior bypass surgery, patient also underwent successful stenting to the mid and distal LAD in May 2015. #4 diabetes Number 5 hyperlipidemia #6 hypertension #7 nicotine dependence #8 peripheral vascular disease #9 abnormal troponins, not suggestive of acute coronary syndrome, likely secondary to renal impairment. #10 hypokalemia and hypomagnesemia Plan We will obtain an echocardiogram with Doppler study. Continue IV heparin and check to see if the patient has coverage for xarelto. We will then discontinue her aspirin and continue Plavix along with xarelto. Replace potassium and magnesium We will also increase the metoprolol tartrate 50 mg one tablet by mouth twice a day. Further recommendations to follow. DNP note has been reviewed, I agree with a documented findings and plan of care. Patient was seen and examined. <Jacques Barillas - Last Filed: 01/11/17 12:30> Physical Exam Vitals: Vital Signs Temp Pulse Pulse Resp BP BP Pulse Ox 01/11/17 12:22 72 01/11/17 12:12 72 01/11/17 08:00 98.5 F 88 18 174/88 95 01/11/17 03:38 97.3 F L 76 18 140/62 96 01/11/17 00:00 98.2 F 73 18 162/81 98 01/10/17 20:29 97.8 F 78 18 145/63 95 01/10/17 19:38 84 01/10/17 19:25 77 01/10/17 19:17 78 18 175/87 95 01/10/17 18:50 80 18 176/77 97 01/10/17 18:00 79 18 165/79 96 01/10/17 17:57 97.7 F 76 18 160/73 97 01/10/17 16:38 98.1 F 80 16 177/76 97 01/10/17 13:53 77 20 179/82 01/10/17 12:55 80 20 184/79 99 Intake and Output 01/10/17 01/11/17 01/11/17 22:59 06:59 14:59 Intake Total 419.261 150 Output Total 250 Balance -250 419.261 150 Intake: IV 268.70 Heparin Sodium,Porcine/ 108.70 D5w Pmx 25,000 unit In Dextrose/Water 1 500ml. bag @ 12 UNITS/KG/HR 16. 76 mls/hr IV .Q24H [facility] Rx #:[id number] Sodium Chloride 0.9% 1, 160 000 ml @ 20 mls/hr IV . Q24H [facility] Rx#:[id number] Intake, IV Titration 150.561 Amount Heparin Sodium,Porcine/ 150.561 D5w Pmx 25,000 unit In Dextrose/Water 1 500ml. bag @ 12 UNITS/KG/HR 16. 76 mls/hr IV .Q24H [facility] Rx #:[id number] Oral 150 Output: Urine 250 Other: Voiding Method Bedside Commode Bedside Commode # Voids 1 Weight 69.853 kg 81.1 kg Results 01/11/17 07:58 01/10/17 12:50 Cardiac Enzymes 01/10/17 01/10/17 01/10/17 Range/Units 12:50 12:50 18:44 AST 27 (14-36) U/L CK-MB (CK-2) 3.6 H* 3.2 H* (0.0-2.4) ng/mL Troponin I 0.122 H* 0.110 H* (0.000-0.034) ng/mL 01/11/17 Range/Units 00:28 AST (14-36) U/L CK-MB (CK-2) 3.0 H* (0.0-2.4) ng/mL Troponin I 0.091 H* (0.000-0.034) ng/mL Coagulation 01/10/17 01/11/17 01/11/17 Range/Units 12:50 00:28 07:54 PT 10.0 (9.0-12.0) sec APTT 23.6 29.6 60.0 H (22.0-30.0) sec Lipids 01/11/17 Range/Units 07:54 Triglycerides 156 H (<150) mg/dL Cholesterol 170 (<200) mg/dL HDL Cholesterol 91 H (40-60) mg/dL CBC 01/10/17 01/11/17 Range/Units 12:50 07:58 WBC 10.1 8.2 (3.8-10.6) k/uL RBC 2.82 L 2.47 L (3.80-5.40) m/uL Hgb 8.8 L 7.6 L (11.4-16.0) gm/dL Hct 26.9 L 24.4 L (34.0-46.0) % Plt Count 295 269 (150-450) k/uL Comprehensive Metabolic Panel 01/10/17 Range/Units 12:50 Sodium 133 L (137-145) mmol/L Potassium 3.2 L (3.5-5.1) mmol/L Chloride 99 (98-107) mmol/L Carbon Dioxide 28 (22-30) mmol/L BUN 13 (7-17) mg/dL Creatinine 2.16 H (0.52-1.04) mg/dL Glucose 109 H (74-99) mg/dL Calcium 7.7 L (8.4-10.2) mg/dL AST 27 (14-36) U/L ALT 28 (9-52) U/L Alkaline Phosphatase 93 (38-126) U/L Total Protein 5.2 L (6.3-8.2) g/dL Albumin 2.5 L (3.5-5.0) g/dL Current Medications Generic Name Dose Route Start Last Admin Trade Name Freq PRN Reason Stop Dose Admin Albuterol/Ipratropium 3 ml 01/10/17 20:00 01/11/17 12:12 Duoneb 0.5 Mg-3 Mg/3 Ml Soln INHALATION 3 ml RT-TID [facility] Administration Amlodipine Besylate 10 mg 01/11/17 09:00 01/11/17 09:19 Norvasc PO 10 mg DAILY [facility] Administration Atorvastatin Calcium 80 mg 01/11/17 09:00 01/11/17 09:19 Lipitor PO 80 mg DAILY [facility] Administration Budesonide 1 mg 01/10/17 20:00 01/11/17 09:30 Pulmicort INHALATION Not Given RT-BID [facility] Calcium Acetate 667 mg 01/10/17 17:30 01/11/17 06:57 Phoslo PO 667 mg TID-W/MEALS [facility] Administration Cholestyramine Resin 4 gm 01/10/17 18:00 01/11/17 09:27 Questran PO 4 gm TID BETWEEN MEALS [facility] Administration Citalopram Hydrobromide 40 mg 01/11/17 09:00 01/11/17 09:19 Celexa PO 40 mg DAILY [facility] Administration Clopidogrel Bisulfate 75 mg 01/11/17 09:00 01/11/17 09:19 Plavix PO 75 mg DAILY [facility] Administration Darbepoetin Devin 40 mcg 01/11/17 09:30 01/11/17 10:08 Aranesp SQ 40 mcg Q7D [facility] Administration Fluticasone Propionate 2 spray 01/10/17 16:02 Flonase Nasal [place] EA NOSTRIL DAILY PRN Allergy Symptoms Sodium Chloride 1,000 mls @ 20 mls/hr 01/10/17 16:00 01/10/17 16:40 Saline 0.9% IV 20 mls/hr .Q24H [facility] Administration Insulin Human Lispro 0 unit 01/11/17 07:30 01/11/17 06:54 Humalog SQ Not Given ACHS [facility] Protocol Isosorbide Mononitrate 60 mg 01/11/17 09:00 01/11/17 09:19 Imdur PO 60 mg DAILY [facility] Administration Loperamide HCl 2 mg 01/10/17 16:02 Imodium PO QID PRN Diarrhea Metoprolol Tartrate 50 mg 01/11/17 09:00 01/11/17 09:25 Lopressor PO 50 mg BID [facility] Administration Nitroglycerin 0.4 mg 01/10/17 15:59 Nitrostat SUBLINGUAL Q5M PRN Chest Pain Potassium Chloride 20 meq 01/11/17 10:00 01/11/17 10:56 K-Dur 20 PO 01/11/17 14:01 20 meq Q2HR [facility] Administration Prazosin HCl 2 mg 01/10/17 22:00 01/11/17 09:19 Minipress PO 2 mg TID [facility] Administration Prednisone 20 mg 01/11/17 09:00 01/11/17 09:19 PO 20 mg DAILY [facility] Administration Quetiapine Fumarate 50 mg 01/10/17 21:00 01/10/17 22:14 Seroquel PO 50 mg HS [facility] Administration Rivaroxaban 15 mg 01/11/17 17:30 Xarelto PO W/SUPPER [facility] Tramadol HCl 50 mg 01/10/17 16:02 01/10/17 22:14 Ultram PO 50 mg Q4H PRN Administration Pain Intake and Output 01/10/17 01/11/17 01/11/17 22:59 06:59 14:59 Intake Total 419.261 150 Output Total 250 Balance -250 419.261 150 Intake: IV 268.70 Heparin Sodium,Porcine/ 108.70 D5w Pmx 25,000 unit In Dextrose/Water 1 500ml. bag @ 12 UNITS/KG/HR 16. 76 mls/hr IV .Q24H [facility] Rx #:[id number] Sodium Chloride 0.9% 1, 160 000 ml @ 20 mls/hr IV . Q24H [facility] Rx#:[id number] Intake, IV Titration 150.561 Amount Heparin Sodium,Porcine/ 150.561 D5w Pmx 25,000 unit In Dextrose/Water 1 500ml. bag @ 12 UNITS/KG/HR 16. 76 mls/hr IV .Q24H [facility] Rx #:[id number] Oral 150 Output: Urine 250 Other: Voiding Method Bedside Commode Bedside Commode # Voids 1 Weight 69.853 kg 81.1 kg 01/11/17 07:58 01/10/17 12:50
[2017-01-11] MEDS ORDERED: ASPIRIN 325 MG TAB PO SCH (09:00)
--- NOTE | 2017-01-11 09:15 | P.NPCON ---
History of Present Illness - Reason for Consult end stage renal disease - History of Present Illness Reason for consultation: End-stage renal disease History of present illness: Patient is a 61-year-old female seen in renal consultation for end- stage renal disease. She is maintained on hemodialysis on a Monday schedule via permacath. She underwent hemodialysis yesterday however towards the end of the treatment she felt dizzy and nauseous. She was noted to be in A. fib with RVR and subsequently sent to the hospital for further care. She is currently maintained on IV heparin as well as Cardizem drip. She denies any active chest pain or shortness of breath. No vomiting or diarrhea. Her blood pressures are stable. She is currently sitting up in a chair. Heart rate is stable in the 70s this morning. Denies fever or chills. Vital signs are stable. General: The patient appeared well nourished and normally developed. HEENT: Head exam is unremarkable. Neck is without jugular venous distension. LUNGS: Lungs are clear to auscultation and percussion. Breath sounds decreased. HEART: Rate and Rhythm are regular. First and second heart sounds normal. No murmurs, rubs or gallops. ABDOMEN: Abdominal exam reveals normal bowel sounds. Non-tender and non- distended. No evidence of peritonitis. EXTREMITITES: No clubbing, cyanosis, or edema. Past Medical History Past Medical History: Coronary Artery Disease (CAD), COPD, Diabetes Mellitus, Deep Vein Thrombosis (DVT), Hyperlipidemia, Hypertension, Osteoarthritis (OA), Renal Disease Additional Past Medical History / Comment(s): right leg blood clot post CABG, CATARACTS, SINUS PROBLEMS. STATED "WT DOWN FROM 258 TO 166 OVER PAST YEAR STATED D/T INTERMITTENT N/V/D. CURRNETLY NO PRONLEMS W/DIARRHEA" Last Myocardial Infarction Date:: August 2009 History of Any Multi-Drug Resistant Organisms: None Reported Past Surgical History: Section, Coronary Bypass/CABG, Heart Catheterization With Stent, Tubal Ligation Additional Past Surgical History / Comment(s): triple bypass. heart cath in august 2009 at [facility] in [place]. "stent in right groin" RT KIDNEY BX. EGD/COLONOSCOPY MULTIPLE POLYPS REMOVED. PT HAD RECENT TEMPORARY HEMODIALYSIS CATHETER INSERTED TO RIGHT CHEST WALL DURING LAST ADMISSION. Past Anesthesia/Blood Transfusion Reactions: No Reported Reaction, Motion Sickness Additional Past Anesthesia/Blood Transfusion Reaction / Comment(s): BLOOD TRANSFUSION A BABY, CLAUSTERPHOBIA Date of Last Stent Placement:: August 2009 Past Psychological History: Anxiety Additional Psychological History / Comment(s): [employer], RETIRED/DISABILTY. USED TO WORK A NURSE AID. Her adult daughter who is 35 lives with her.LIVES IN SINGLE LEVEL HOME THAT HAS 1 STEP, CANE, GLUCOMETER. Ongoing tobacco smoker from her teenage years. Denies significant alcohol or recreational drug use. No experience. No travel history. 2 cats animals in the home at this point in time. His move back to [place] [facility], she would call this home. Smoking Status: Current every day smoker Past Alcohol Use History: None Reported Additional Past Alcohol Use History / Comment(s): STARTED SMOKING AT AGE 19- QUIT WHEN WITH DAUGHTER THEN RESTARTED SMOKES 10-15 CIGr. Currently has not smoked in 2 weeks 01/10/17 Past Drug Use History: None Reported - Past Family History Father Family Medical History: COPD, Hypertension, Myocardial Infarction (ME) Mother Family Medical History: Cancer, Myocardial Infarction (ME) Additional Family Medical History / Comment(s): brain and lung cancer Sister(s) Family Medical History: Cancer, Diabetes Mellitus, Liver Disease, Myocardial Infarction (ME) Additional Family Medical History / Comment(s): heart cath with stent; . Brain and lung cancer Medications and Allergies Home Medications Medication Instructions Recorded Confirmed Type Citalopram Hydrobromide [CeleXA] 40 mg PO DAILY 01/28/15 01/10/17 History Isosorbide Mononitrate ER [Imdur] 60 mg PO DAILY 01/28/15 01/10/17 History traMADol HCl [Ultram] 50 mg PO Q4H PRN 01/28/15 01/10/17 History Fluticasone Nasal [place] [Flonase 2 spray EA NOSTRIL DAILY PRN 05/25/15 01/10/17 History Nasal [place]] Aspirin [Adult Low Dose Aspirin EC] 81 mg PO DAILY 10/21/16 01/10/17 History Sodium Bicarbonate Tab 650 mg PO AC-BID 12/28/16 01/10/17 History Allergies Allergy/AdvReac Type Severity Reaction Status Date / Time Penicillins Allergy Rash/Hives Verified 01/10/17 12:40 garlic AdvReac Vomiting Verified 01/10/17 12:40 Physical Exam Vitals: Vital Signs Temp Pulse Pulse Resp BP BP Pulse Ox 01/11/17 03:38 97.3 F L 76 18 140/62 96 01/11/17 00:00 98.2 F 73 18 162/81 98 01/10/17 20:29 97.8 F 78 18 145/63 95 01/10/17 19:38 84 01/10/17 19:25 77 01/10/17 19:17 78 18 175/87 95 01/10/17 18:50 80 18 176/77 97 01/10/17 18:00 79 18 165/79 96 01/10/17 17:57 97.7 F 76 18 160/73 97 01/10/17 16:38 98.1 F 80 16 177/76 97 01/10/17 13:53 77 20 179/82 01/10/17 12:55 80 20 184/79 99 01/10/17 11:57 98 F 87 16 151/87 97 Intake and Output 01/10/17 01/11/17 01/11/17 22:59 06:59 14:59 Intake Total 419.261 Output Total 250 Balance -250 419.261 Intake: IV 268.70 Heparin Sodium,Porcine/ 108.70 D5w Pmx 25,000 unit In Dextrose/Water 1 500ml. bag @ 12 UNITS/KG/HR 16. 76 mls/hr IV .Q24H YING Rx #:[id number] Sodium Chloride 0.9% 1, 160 000 ml @ 20 mls/hr IV . Q24H YING Rx#:[id number] Intake, IV Titration 150.561 Amount Heparin Sodium,Porcine/ 150.561 D5w Pmx 25,000 unit In Dextrose/Water 1 500ml. bag @ 12 UNITS/KG/HR 16. 76 mls/hr IV .Q24H YING Rx #:[id number] Output: Urine 250 Other: Voiding Method Bedside Commode # Voids 1 Weight 69.853 kg 81.1 kg Results - Lab Results Most recent lab results Calcium 7.7 mg/dL (8.4-10.2) L 01/10/17 12:50 Magnesium 1.6 mg/dL (1.6-2.3) 05/23/17 12:50 01/10/17 12:50 01/10/17 12:50 Assessment and Plan Plan: Assessment: #1. End-stage renal disease maintained on hemodialysis on a Monday schedule via permacath. #2. Atrial fibrillation with RVR. Now rate controlled. #3. Chronic kidney disease mineral bone disease. #4. Anemia of kidney disease. Rule out iron deficiency. #5. Hypertension with chronic kidney disease. Controlled. #6. Insulin-dependent diabetes mellitus. #7. Hypokalemia due to dialysis with a low potassium bath as well as diuretics. Magnesium also on the lower side. Plan: Hemodialysis tomorrow with goal 1-1/2-2 L ultrafiltration. Maintain PhosLo with meals. Check iron studies. Start Aranesp. Cardiology following. Follow-up echocardiogram. Potassium and magnesium replaced. Thank you for the consultation. I will continue to follow patient with you during her hospital stay.
[2017-01-11] MEDS: ATORVASTATIN 80 MG TAB PO SCH (09:19)
[2017-01-11] MEDS: predniSONE 20 MG TAB PO SCH (09:19)
[2017-01-11] MEDS: CITALOPRAM HYDROBROMIDE 20 MG TAB PO SCH (09:19)
[2017-01-11] MEDS: ISOSORBIDE MONONITRATE ER 60 MG TAB.ER.24H PO SCH (09:19)
[2017-01-11] MEDS: CLOPIDOGREL 75 MG TAB PO SCH (09:19)
[2017-01-11] MEDS: PRAZOSIN 1 MG CAP PO SCH ×3 (09:19→20:52)
[2017-01-11] MEDS: amLODIPine 10 MG TAB PO SCH (09:19)
[2017-01-11] MEDS: MAGNESIUM SULFATE-D5W PMX 1 GM in DEXTROSE/WATER 1 100ML.BAG IVPB SCH ×2 (09:25→10:58)
[2017-01-11] MEDS: METOPROLOL TARTRATE 50 MG TAB PO SCH ×2 (09:25→20:52)
[2017-01-11] MEDS: POTASSIUM CHLORIDE ER 20 MEQ TAB.ER PO SCH ×3 (09:26→13:24)
[2017-01-11] MEDS: CHOLESTYRAMINE (WITH SUGAR) 4 GM PACKET PO SCH ×3 (09:27→17:24)
[2017-01-11] MEDS ORDERED: DARBEPOETIN ALFA 40 MCG/0.4 ML SYRINGE SQ SCH (09:30)
[2017-01-11] MEDS: BUDESONIDE 1 MG/2 ML NEBU INHALATION SCH ×2 (09:30→19:24)
[2017-01-11] MEDS: IPRATROPIUM-ALBUTEROL 3 ML NEB INHALATION SCH ×3 (09:30→19:24)
[2017-01-11 10:13] LABS: CHCM 31.6; HCT 24.4 % (34.0-46.0); HDW 2.41; HGB 7.6 gm/dL (11.4-16.0); MCH 30.8 pg (25.0-35.0); MCHC 31.3 g/dL (31.0-37.0); MCV 98.6 fL (80.0-100.0); Mean Platelet Volume 7.7; RBC 2.47 m/uL (3.80-5.40); RDW 13.6 % (11.5-15.5); WBC 8.2 k/uL (3.8-10.6)
[2017-01-11 11:30] LABS: Glucose,Whole Blood 161 mg/dL (75-99)
--- NOTE | 2017-01-11 11:37 | ECHOF ---
Referral Reason:afib MEASUREMENTS -------- HEIGHT: 152.4 cm WEIGHT: 80.7 kg BP: 140/62 RVIDd: 2.5 cm (< 3.3) IVSd: 1.0 cm (0.6 - 1.1) LVIDd: 4.9 cm (3.9 - 5.3) LVPWd: 1.0 cm (0.6 - 1.1) IVSs: 1.6 cm LVIDs: 2.4 cm LVPWs: 1.8 cm LAESV Index (A-L): 26.11 ml/m Ao Diam: 2.3 cm (2.0 - 3.7) AV Cusp: 1.4 cm (1.5 - 2.6) LA Diam: 4.2 cm (2.7 - 3.8) MV EXCURSION: 17.701 mm (> 18.000) MV EF SLOPE: 127 mm/s (70 - 150) EPSS: 0.6 cm MV E Yordan: 1.53 m/s MV DecT: 265 ms MV A Yordan: 0.84 m/s MV E/A Ratio: 1.83 RAP: 5.00 mmHg RVSP: 24.13 mmHg FINDINGS -------- Sinus rhythm. This was a technically adequate study. Left ventricular wall thickness is normal. Overall left ventricular systolic function is normal with, an EF between 55 - 60 %. The diastolic filling pattern is normal for the age of the patient 29.88. The right ventricle is normal in size and function. Normal LA size by volume 22+/-6 ml/m2. The right atrium is normal in size. Aortic valve is trileaflet and is mildly thickened. There is no evidence of aortic regurgitation. There is no evidence of aortic stenosis. The mitral valve leaflets are mildly thickened. [id number] mitral regurgitation is present. Trace tricuspid regurgitation present. There is no evidence of pulmonary hypertension. The right ventricular systolic pressure, as measured by Doppler, is 24.13mmHg. The pulmonic valve was not well visualized. The aortic root size is normal. The pericardium is normal. There is no pericardial effusion. CONCLUSIONS -------- 1. Sinus rhythm. 2. The right ventricular systolic pressure, as measured by Doppler, is 24.13mmHg. 3. The pulmonic valve was not well visualized. 4. The aortic root size is normal. 5. There is no pericardial effusion. 6. Overall left ventricular systolic function is normal with, an EF between 55 - 60 %. 7. The diastolic filling pattern is normal for the age of the patient 29.88 8. Normal LA size by volume 22+/-6 ml/m2. 9. Aortic valve is trileaflet and is mildly thickened. 10. The mitral valve leaflets are mildly thickened. 11. [id number] mitral regurgitation is present. 12. Trace tricuspid regurgitation present. 13. There is no evidence of pulmonary hypertension. CHIROPRACTIC PHYSICIAN: Ronnie Little RDCS
[2017-01-11 11:49] LABS: Hemoglobin A1C 5.6 % (4.2-6.1)
[2017-01-11 12:18] LABS: Potassium 3.3 mmol/L (3.5-5.1)
[2017-01-11 12:30] LABS: % Iron Saturation 26.1 % (20-50)
--- NOTE | 2017-01-11 15:52 | HP ---
DATE OF ADMISSION: 01/10/2017 PRESENTING COMPLAINT: Chest pains, "not feeling right." HISTORY OF PRESENTING COMPLAINT: This is a pleasant 61-year-old female who was just discharged from the hospital on Monday. At that time, patient was found to have delirium associated with acute renal failure/failure to receive hemodialysis treatments. Today, patient was at her first outpatient hemodialysis treatment and she was almost completing the end of it and began to feel hot. It began at her feet and worked its way up. Then she began to have serious chest pain, became nauseated, started to sweat. Subsequently EMS was called and she was brought to the hospital. On the monitor, patient was found to be in A. fib with RVR. Heart rate was in about the 170s. Patient does state that she has had symptoms similar to this during dialysis in the past and has been admitted for that reason previously. REVIEW OF SYSTEMS: CONSTITUTIONAL: Pale, weak and tired. RESPIRATORY: Mildly short of breath. CARDIOVASCULAR: Chest pressure currently. GASTROINTESTINAL: Nausea, MUSCULOSKELETAL: None. DERMATOLOGICAL: None. HEMATOLOGICAL: None. LYMPHATIC: None. PSYCHIATRY: Feels tired and confused and anxious. NEUROLOGICAL: Nonfocal. PAST MEDICAL HISTORY: 1. End-stage kidney disease on hemodialysis. 2. COPD in an ex-smoker. 3. Coronary artery disease with a prior history of stent and coronary artery bypass. 4. Diabetes mellitus type 2, not on any medications any more. 5. Hyperlipidemia. 6. Essential hypertension. 7. Primary osteoarthritis, multiple joints bilateral. PAST SURGICAL HISTORY: , coronary artery bypass, cardiac cath with stent, tubal ligation, triple bypass in August 2009 at [facility] in [place], stent in the right groin, EGD, colonoscopy with multiple polyps removed. SOCIAL HISTORY: Patient lives with her daughter. Patient has smoked 1/2 pack a day for many years, stopped a few weeks ago. Alcohol: None. FAMILY HISTORY: Myocardial infarction, COPD, hypertension, brain and lung cancer. HOME MEDICATIONS: 1. Tramadol 50 mg p.o. q.4 hours p.r.n. 2. Prednisone 20 mg p.o. daily. 3. Amlodipine 10 mg p.o. daily. 4. Sodium bicarb tabs 650 mg p.o. a.c.-b.i.d. 5. Seroquel 50 mg p.o. at bedtime. 6. Prazosin 2 mg p.o. t.i.d. 7. Nitroglycerin sublingual tabs 0.4 mg sublingual q.5 minutes p.r.n. 8. Metoprolol 25 mg p.o. b.i.d. 9. Loperamide 2 mg p.o. q.i.d. p.r.n. 10. Imdur 60 mg p.o. daily. 11. DuoNeb inhalation t.i.d. 12. Fluticasone 2 sprays each nostril daily p.r.n. 13. Plavix 75 mg p.o. daily. 14. Celexa 40 mg p.o. daily. 15. Questran 4 mg p.o. t.i.d. between meals. 16. Calcium acetate 667 mg p.o. t.i.d. with meals. 17. Budesonide 1 mg inhalation b.i.d. 18. Atorvastatin 80 mg p.o. daily. 19. Aspirin 81 mg p.o. daily ALLERGIES: PENICILLIN AND GARLIC. PHYSICAL EXAM: VITAL SIGNS: Temperature 97.8, pulse 78, respirations 18, blood pressure 145/63, oxygen saturation 95% on room air. GENERAL APPEARANCE: Well-built, lying on the gurney, tired-appearing, pale. EYES: Pupils equal, conjunctivae normal. HEENT: Oral cavity normal. NECK: JVD not raised. Mass not palpable. RESPIRATORY: Effort increased. LUNGS: Diminished breath sounds bilaterally. CARDIOVASCULAR: First and second sounds irregular. Mild edema. ABDOMEN: Soft, nontender. Liver and spleen not palpable. LYMPHATICS: No lymph nodes palpable in the neck or the axillae. PSYCHIATRY: Patient is able to answer questions. Appears anxious, but calm and cooperative otherwise. CHEST WALL: Right chest wall with a hemodialysis catheter. NEUROLOGIC: Pupils equal. Cranial nerves grossly intact. Moving all 4 limbs. INVESTIGATIONS: Hemoglobin 8.8. Sodium 133, potassium 3.2, creatinine 2.16, BUN 13. Total CK 151, CK-MB 3.6. Troponin 0.122. Chest x-ray: Mild venous congestion with a small bilateral effusion and left basilar infiltrate. ECG: Normal sinus rhythm. ASSESSMENT: 1. New onset atrial fibrillation with rapid ventricular response. 2. End-stage kidney disease on hemodialysis due to diabetic nephrosclerosis and hypertensive nephrosclerosis. 3. Chronic obstructive pulmonary disease in an ex-smoker. 4. Coronary artery disease with prior history of stents and bypass. 5. Hyperlipidemia. 6. Essential hypertension, uncontrolled. 7. Primary osteoarthritis in multiple joints bilaterally. PLAN: Home medications are resumed. Cardiology is consulted, as is Nephrology. Plan of care was discussed with the patient at the bedside. Will follow. Patient was seen and examined by Nurse Practitioner, Selene Bowen, and all elements of the case discussed with attending, Dr. Carr. I performed a history and physical examination of this patient and discussed the same with the dictator. I agree with the dictator's note. Any additional findings/opinions, etc. will be noted.
[2017-01-11 16:43] LABS: Glucose,Whole Blood 250 mg/dL (75-99)
[2017-01-11] MEDS ORDERED: RIVAROXABAN 15 MG TAB PO SCH (17:30)
--- NOTE | 2017-01-11 18:06 | PN ---
DATE OF SERVICE: 01/11/2017 PRESENTING COMPLAINT: Chest pains, "not feeling right." This is a female who presented to the emergency department with chest pain and was found to be in atrial fibrillation with RVR. Today the patient states she feels well; better than she did when she arrived. No chest pain since her initial episode yesterday. Patient is awake, sitting up, eating a meal, talking to her roommate. Review of systems done for constitutional, cardiovascular, GI, pulmonary, with relevant findings as above. CURRENT MEDICATIONS: 1. DuoNeb t.i.d. p.r.n. 2. Norvasc 10 mg p.o. daily. 3. Lipitor 80 mg p.o. daily. 4. Pulmicort 1 mg inhalation b.i.d. 5. PhosLo 667 mg p.o. t.i.d. with meals. 6. Questran 4 grams between meals t.i.d. 7. Celexa 40 mg p.o. daily. 8. Plavix 75 mg p.o. daily. 9. Aranesp 40 mcg every 7 days subcutaneously. 10. Imdur 60 mg p.o. daily. 11. Lopressor 50 mg p.o. b.i.d. 12. Minipress 2 mg p.o. t.i.d. PHYSICAL EXAMINATION: VITAL SIGNS: Temperature 98.5, pulse 88, respiratory rate 18, blood pressure 174/88, oxygen saturation 95% on room air. GENERAL APPEARANCE: Patient is sitting up in the chair, eating her breakfast. No acute distress. No chest pain. EYES: Pupils equal. Conjunctivae normal. NECK: JVD not raised. Mass not palpable. LUNGS: Diminished bilaterally. RESPIRATORY: Effort normal. CARDIOVASCULAR: First and second sounds noted. No edema. ABDOMEN: Soft, nontender. Liver and spleen not palpable. PSYCHIATRY: Alert and oriented x3. Mood and affect are normal. INVESTIGATIONS: Hemoglobin 7.6. Potassium 3.3. Blood glucose 161. Troponin 0.091. Echocardiogram reveals patient in sinus rhythm with overall EF of 55% to 60%. ASSESSMENT: 1. New-onset atrial fibrillation with rapid ventricular response. Patient is now in sinus rhythm. 2. End-stage kidney disease, on hemodialysis due to diabetic nephrosclerosis and hypertensive nephrosclerosis, stable. 3. Chronic obstructive pulmonary disease in an ex-smoker. 4. Coronary artery disease with prior history of stents and a bypass. 5. Hyperlipidemia. 6. Essential hypertension, uncontrolled. 7. Primary osteoarthritis in multiple joints bilaterally. PLAN: Cardiology has recommended continuation of IV heparin and to see if patient is covered for Xarelto. If patient has coverage, then at that time will discontinue her aspirin and continue the Plavix along with the Xarelto. Lopressor will be increased as well. Discharge planning in the next 1 to 2 days. Will follow. Patient was seen and examined by nurse practitioner Selene Bowen, and all elements of the case were discussed with the attending, Dr. Carr.
[2017-01-11] MEDS: SODIUM CHLORIDE 0.9% 1,000 ML IV SCH (20:50)
[2017-01-11 20:51] LABS: Glucose,Whole Blood 166 mg/dL (75-99)
[2017-01-11] MEDS: QUEtiapine 50 MG TAB PO SCH (20:51)
--- NOTE | 2017-01-11 22:00 | HP ---
DATE OF ADMISSION: 01/10/2017 PRESENTING COMPLAINT: Heart racing. ATTENDING NOTE: This patient was seen and examined by me yesterday in the ER on 01/10/2017. I reviewed the H&P of my nurse practitioner, Ms. Bowen, and agree with the same. The patient was just discharged. During hemodialysis, started having palpitations, some chest discomfort, not feeling well. Patient was found to be in A. fib with rapid ventricular rate, heart rate going up to the 170s. Patient presented to the ER. By the time even before Cardizem could be restarted, patient reverted back to sinus rhythm. Patient is admitted for the same. On exam, LUNGS: Decreased breath sounds. CARDIOVASCULAR: First and second sounds normal. No edema. PSYCH: Alert and oriented x3. Patient's daughter at the bedside. EKG did show A. fib with rapid ventricular rate. ASSESSMENT: 1. New onset atrial fibrillation with rapid ventricular rate, paroxysmal. 2. End-stage kidney disease on hemodialysis due to diabetic nephropathy and hypertensive nephrosclerosis. 3. Chronic obstructive pulmonary disease in an ex-smoker. 4. Coronary artery disease with prior history of stent and bypass. 5. Hyperlipidemia. 6. Essential hypertension. 7. Primary osteoarthritis of multiple joints, bilaterally. PLAN: Home medications will be continued. Cardiology was consulted to order the Cardizem drip that ( ) started. Anticoagulation is being addressed by Cardiology at this point. Care discussed with the patient.
--- NOTE | 2017-01-11 22:34 | PN ---
DATE OF SERVICE: 01/11/2017 ATTENDING NOTE: This patient was seen and examined by me earlier today. I reviewed the note of my nurse practitioner Ms. Bowen, discussed and agree with the same. Patient admitted with paroxysmal atrial fibrillation. going back in sinus rhythm. Patient is due for hemodialysis tomorrow, comfortable. Dr. Barillas decided to put the patient on Xarelto for anticoagulation. On exam, lungs decreased breath sounds. CARDIOVASCULAR: First and second sounds normal. ASSESSMENT: 1. Paroxysmal atrial fibrillation now back in sinus rhythm. 2. End-stage kidney disease on hemodialysis. PLAN: We will discuss with Dr. Barillas if he may want to consider Eliquis. Of course insurance coverage will be an issue. Otherwise Coumadin can also be a choice. At the present time patient is on Xarelto. Follow.
[2017-01-12] MEDS ORDERED: LORazepam 2 MG/ML SYRINGE IV STA (02:37)
[2017-01-12] MEDS ORDERED: HALOPERIDOL LACTATE 5 MG/ML 1 ML VIAL IM PRN (04:56)
[2017-01-12 06:13] LABS: CH 30.6; HCT 24.8 % (34.0-46.0); HDW 2.39; HGB 8.2 gm/dL (11.4-16.0); Hypochromasia Slight; MCH 32.5 pg (25.0-35.0); MCHC 32.8 g/dL (31.0-37.0); Mean Platelet Volume 7.3; RBC 2.51 m/uL (3.80-5.40); RDW 13.5 % (11.5-15.5); WBC 13.2 k/uL (3.8-10.6)
[2017-01-12 06:22] LABS: Calcium 8.5 mg/dL (8.4-10.2); Potassium 4.2 mmol/L (3.5-5.1)
[2017-01-12 06:34] LABS: Glucose,Whole Blood 147 mg/dL (75-99)
[2017-01-12] MEDS: INSULIN LISPRO (humaLOG) 300 UNIT/3 ML VIAL SQ SCH ×4 (06:48→21:11)
[2017-01-12] MEDS: CALCIUM ACETATE 667 MG CAP PO SCH ×3 (06:48→18:47)
[2017-01-12] MEDS: BUDESONIDE 1 MG/2 ML NEBU INHALATION SCH ×2 (09:01→20:51)
[2017-01-12] MEDS: IPRATROPIUM-ALBUTEROL 3 ML NEB INHALATION SCH ×4 (09:01→23:55)
--- NOTE | 2017-01-12 09:50 | P.PN ---
Subjective Patient is seen in follow-up for end-stage renal disease. She is maintained on hemodialysis on a Monday schedule. Patient received dialysis on Monday. She presented with atrial fibrillation with RVR and is now in sinus rhythm. Patient became confused and combative last night. She did receive a dose of Ativan as well as Haldol. She remains quite confused. Vital signs are stable. General: The patient appeared well nourished and normally developed. HEENT: Head exam is unremarkable. Neck is without jugular venous distension. LUNGS: Lungs are clear to auscultation and percussion. Breath sounds decreased. HEART: Rate and Rhythm are regular. First and second heart sounds normal. No murmurs, rubs or gallops. ABDOMEN: Abdominal exam reveals normal bowel sounds. Non-tender and non- distended. No evidence of peritonitis. EXTREMITITES: No clubbing, cyanosis, or edema. Objective - Vital Signs Vital signs: Vital Signs Temp 97.5 F L 01/12/17 00:00 Pulse 89 01/12/17 08:00 Resp 22 01/12/17 08:00 BP 124/92 01/12/17 08:00 Pulse Ox 95 01/12/17 08:00 Intake & Output 01/11/17 01/12/17 01/12/17 18:59 06:59 18:59 Intake Total 570 Output Total 400 600 Balance 170 -600 Weight 82.5 kg Intake: Oral 570 Output: Urine 400 600 Straight 300 Other: Voiding Method Bedside Commode Bedside Commode # Voids 1 1 # Bowel Movements 1 - Labs CBC & Chem 7: 01/12/17 05:26 01/12/17 05:26 Labs: Abnormal Lab Results - Last 24 Hours (Table) 01/11/17 01/11/17 01/11/17 Range/Units 07:58 07:58 11:24 WBC (3.8-10.6) k/uL RBC 2.47 L (3.80-5.40) m/uL Hgb 7.6 L (11.4-16.0) gm/dL Hct 24.4 L (34.0-46.0) % Potassium 3.3 L (3.5-5.1) mmol/L BUN 21 H (7-17) mg/dL Creatinine 3.30 H (0.52-1.04) mg/dL Glucose (74-99) mg/dL POC Glucose (mg/dL) 161 H (75-99) mg/dL Calcium 8.0 L (8.4-10.2) mg/dL TIBC 165 L (265-497) ug/dL Ferritin 352 H (11-264) ng/mL 01/11/17 01/11/17 01/12/17 Range/Units 16:37 20:50 05:26 WBC 13.2 H (3.8-10.6) k/uL RBC 2.51 L (3.80-5.40) m/uL Hgb 8.2 L (11.4-16.0) gm/dL Hct 24.8 L (34.0-46.0) % Potassium (3.5-5.1) mmol/L BUN (7-17) mg/dL Creatinine (0.52-1.04) mg/dL Glucose (74-99) mg/dL POC Glucose (mg/dL) 250 H 166 H (75-99) mg/dL Calcium (8.4-10.2) mg/dL TIBC (265-497) ug/dL Ferritin (11-264) ng/mL 01/12/17 01/12/17 Range/Units 05:26 06:32 WBC (3.8-10.6) k/uL RBC (3.80-5.40) m/uL Hgb (11.4-16.0) gm/dL Hct (34.0-46.0) % Potassium (3.5-5.1) mmol/L BUN 32 H (7-17) mg/dL Creatinine 4.32 H (0.52-1.04) mg/dL Glucose 149 H (74-99) mg/dL POC Glucose (mg/dL) 147 H (75-99) mg/dL Calcium (8.4-10.2) mg/dL TIBC (265-497) ug/dL Ferritin (11-264) ng/mL Assessment and Plan Plan: Assessment: #1. End-stage renal disease maintained on hemodialysis on a Monday schedule via permacath. #2. Atrial fibrillation with RVR. Now rate controlled. #3. Chronic kidney disease mineral bone disease. #4. Anemia of chronic kidney disease. Iron replete. #5. Hypertension with chronic kidney disease. Controlled. #6. Insulin-dependent diabetes mellitus. #7. Hypokalemia due to dialysis with a low potassium bath as well as diuretics. Magnesium also on the lower side. Improved. #8. Mild to moderate mitral regurgitation with preserved ejection fraction. #9. Altered mental status. This is not due to uremia. She was hallucinating last visit and was started on Seroquel which she still maintained on. She is also on prednisone which can be a contributing factor. Consider psychiatry reconsultation. Plan: Hemodialysis today with goal 1-1/2-2 L ultrafiltration. Maintain PhosLo with meals. Maintain Aranesp. Cardiology following.
[2017-01-12 11:56] LABS: Glucose,Whole Blood 119 mg/dL (75-99)
--- NOTE | 2017-01-12 12:42 | P.PN ---
Progress Note - Text Patient is on dialysis she should be on Coumadin and she should not be on any other NOAC The NOAC that is being tested for renal failure patient's has not yet been released by FDA in the [place] A NOAC is contraindicated in dialysis patients even at low doses Discussed with Dr. Carr
[2017-01-12] MEDS: PRAZOSIN 1 MG CAP PO SCH ×3 (16:41→23:24)
[2017-01-12] MEDS: CHOLESTYRAMINE (WITH SUGAR) 4 GM PACKET PO SCH ×3 (16:41→18:48)
[2017-01-12 17:03] LABS: Glucose,Whole Blood 95 mg/dL (75-99)
[2017-01-12] MEDS: METOPROLOL TARTRATE 50 MG TAB PO SCH ×2 (17:33→23:22)
[2017-01-12] MEDS: amLODIPine 10 MG TAB PO SCH (17:46)
[2017-01-12] MEDS: ATORVASTATIN 80 MG TAB PO SCH (17:46)
[2017-01-12] MEDS: CITALOPRAM HYDROBROMIDE 20 MG TAB PO SCH (17:47)
[2017-01-12] MEDS: SODIUM CHLORIDE 0.9% 1,000 ML IV SCH (17:48)
[2017-01-12] MEDS: predniSONE 20 MG TAB PO SCH (17:48)
[2017-01-12] MEDS: CLOPIDOGREL 75 MG TAB PO SCH (17:48)
[2017-01-12] MEDS: ISOSORBIDE MONONITRATE ER 60 MG TAB.ER.24H PO SCH (17:48)
[2017-01-12] MEDS ORDERED: WARFARIN 7.5 MG TAB PO ONE (18:00)
--- NOTE | 2017-01-12 18:24 | CT ---
EXAMINATION TYPE: CT brain wo con DATE OF EXAM: 01/12/2017 6:13 PM COMPARISON: 01/04/2017 HISTORY: Patient poor historian. Weakness CT DLP: 2941.9 mGycm Automated exposure control for dose reduction was used. FINDINGS: There is some cerebral cortical atrophy. There is no mass effect nor midline shift. There is no sign of intracranial hemorrhage. The calvarium is intact. There is mild hypodensity in the white matter. IMPRESSION: Cerebral atrophy and chronic small vessel ischemia. No acute abnormality. No significant change halie red to last exam.
[2017-01-12 20:38] LABS: Glucose,Whole Blood 98 mg/dL (75-99)
--- NOTE | 2017-01-12 21:06 | P.CNNES ---
History of Present Illness Consult date: 01/12/17 Reason for Consult: Neurology consultation for evaluation of confusion and hallucinations. History of Present Illness: This patient is a 61-year-old right-handed white female who was recently discharged after being treated for acute renal failure with delirium. She was just discharged last Monday and apparently was doing fairly well but showed increasing confusion. Patient was having hemodialysis and apparently developed severe chest pain symptoms. She was brought into the emergency room for further evaluation on 01/10/2017. In the ER she was found to have evidence of new onset atrial fibrillation with a rapid ventricular rate. Her heart rate was in the 170s. She then reverted back to normal sinus rhythm. Cardiology is seeing the patient and is recommending for her to continue on Plavix. Her aspirin was discontinued and she is being considered for use of Xarelto. Apparently today she continues to remain quite confused and lethargic. She had a very bad night yesterday and required some sedation with Haldol and Ativan. Today she has been sleepy according to the sitter who is at bedside. She does not follow commands. Her speech is quite slurred at times. She was sent for a computed tomography scan of the brain today which reveals cerebral atrophy and chronic small vessel ischemic changes. Was no evidence of acute stroke or hemorrhage. The patient is undergoing hemodialysis for the renal failure. She has end-stage renal disease and her serum creatinine today was 4.32. Nephrology is following the patient as well. The patient's recent mental status changes suggest a severe metabolic encephalopathy. She has been treated last admission for delirium and is currently taking Seroquel. 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 We would recommend a psychiatry consultation for this patient. Her psychiatric medications may require readjustment. As noted computed tomography scan of the brain was negative. We would recommend a EEG for further evaluation for this patient. Her overall prognosis at this time remains very guarded. Neurology is now consulted for further evaluation and recommendations. Review of Systems Constitutional: Denies chills, Denies fever Eyes: denies blurred vision, denies pain Ears, nose, mouth and throat: Denies headache, Denies sore throat Cardiovascular: Denies chest pain, Denies shortness of breath Respiratory: Denies cough Gastrointestinal: Denies abdominal pain, Denies diarrhea, Denies nausea, Denies vomiting Genitourinary: Denies dysuria, Denies hematuria Musculoskeletal: Reports muscle weakness, Denies myalgias Integumentary: Denies pruritus, Denies rash Neurological: Reports change in speech, Reports confusion, Reports paresthesias , Reports tremors, Denies numbness, Denies weakness Psychiatric: Reports confusion, Reports difficulty concentrating, Reports irritability, Reports sleep disturbances, Denies anxiety, Denies depression Endocrine: Denies fatigue, Denies weight change Past Medical History Past Medical History: Coronary Artery Disease (CAD), COPD, Diabetes Mellitus, Deep Vein Thrombosis (DVT), Hyperlipidemia, Hypertension, Osteoarthritis (OA), Renal Disease Additional Past Medical History / Comment(s): right leg blood clot post CABG, CATARACTS, SINUS PROBLEMS. STATED "WT DOWN FROM 258 TO 166 OVER PAST YEAR STATED D/T INTERMITTENT N/V/D. CURRNETLY NO PRONLEMS W/DIARRHEA" Last Myocardial Infarction Date:: August 2009 History of Any Multi-Drug Resistant Organisms: None Reported Past Surgical History: Section, Coronary Bypass/CABG, Heart Catheterization With Stent, Tubal Ligation Additional Past Surgical History / Comment(s): triple bypass. heart cath in august 2009 at [facility] in [place]. "stent in right groin" RT KIDNEY BX. EGD/COLONOSCOPY MULTIPLE POLYPS REMOVED. PT HAD RECENT TEMPORARY HEMODIALYSIS CATHETER INSERTED TO RIGHT CHEST WALL DURING LAST ADMISSION. Past Anesthesia/Blood Transfusion Reactions: No Reported Reaction, Motion Sickness Additional Past Anesthesia/Blood Transfusion Reaction / Comment(s): BLOOD TRANSFUSION A BABY, CLAUSTERPHOBIA Date of Last Stent Placement:: August 2009 Past Psychological History: Anxiety Additional Psychological History / Comment(s): [place], RETIRED/DISABILTY. USED TO WORK A NURSE AID. Her adult daughter who is 35 lives with her.LIVES IN SINGLE LEVEL HOME THAT HAS 1 STEP, CANE, GLUCOMETER. Ongoing tobacco smoker from her teenage years. Denies significant alcohol or recreational drug use. No experience. No travel history. 2 cats animals in the home at this point in time. His move back to [place] after many years living in the [facility] part of the [facility], she would call this home. Smoking Status: Current every day smoker Past Alcohol Use History: None Reported Additional Past Alcohol Use History / Comment(s): STARTED SMOKING AT AGE 19- QUIT WHEN WITH DAUGHTER THEN RESTARTED SMOKES 10-15 CIGr. Currently has not smoked in 2 weeks 01/10/17 Past Drug Use History: None Reported - Past Family History Father Family Medical History: COPD, Hypertension, Myocardial Infarction (NH) Mother Family Medical History: Cancer, Myocardial Infarction (NH) Additional Family Medical History / Comment(s): brain and lung cancer Sister(s) Family Medical History: Cancer, Diabetes Mellitus, Liver Disease, Myocardial Infarction (NH) Additional Family Medical History / Comment(s): heart cath with stent; . Brain and lung cancer Medications and Allergies Home Medications Medication Instructions Recorded Confirmed Type Citalopram Hydrobromide [CeleXA] 40 mg PO DAILY 01/28/15 01/10/17 History Isosorbide Mononitrate ER [Imdur] 60 mg PO DAILY 01/28/15 01/10/17 History traMADol HCl [Ultram] 50 mg PO Q4H PRN 01/28/15 01/10/17 History Fluticasone Nasal Benedict [Flonase 2 spray EA NOSTRIL DAILY PRN 05/25/15 01/10/17 History Nasal Benedict] Aspirin [Adult Low Dose Aspirin EC] 81 mg PO DAILY 10/21/16 01/10/17 History Sodium Bicarbonate Tab 650 mg PO AC-BID 12/28/16 01/10/17 History Allergies Allergy/AdvReac Type Severity Reaction Status Date / Time Penicillins Allergy Rash/Hives Verified 01/10/17 12:40 garlic AdvReac Vomiting Verified 01/10/17 12:40 Physical Examination - Vital Signs Vital Signs: Vital Signs Temp Pulse Resp BP Pulse Ox 01/12/17 17:49 80 111/56 01/12/17 16:00 81 16 156/63 01/12/17 15:38 22 01/12/17 08:00 89 22 124/92 95 01/12/17 00:00 97.5 F L 72 16 125/64 98 01/11/17 20:00 97.7 F 78 16 130/65 100 Intake and Output 01/12/17 01/12/17 01/12/17 06:59 14:59 22:59 Intake Total 0 Output Total 600 Balance -600 0 Intake: IV 0 Sodium Chloride 0.9% 1, 0 000 ml @ 20 mls/hr IV . Q24H [facility] Rx#:[id number] Output: Urine 600 Straight 300 Other: Voiding Method Bedside Commode # Voids 1 0 Weight 82.5 kg - Constitutional General appearance: average body habitus, cooperative - EENT EENT: PERRL, mucous membranes moist - Respiratory Respiratory: lungs clear, normal breath sounds - Cardiovascular Cardiovascular: normal S1, normal S2 Extremities: no peripheral edema bilaterally - Gastrointestinal Gastrointestinal: normoactive bowel sounds - Integumentary Integumentary: normal - Neurologic Cranial nerve examination: PERRL, EOMI, VFF, V1/V2/V3 grossly intact, face symmetric, intact gag reflex, intact corneal reflex, normal palatal elevation Speech examination: intact Sensorimotor examination: intact Detailed motor examination: grossly full strength in all extremities Detailed sensory examination: intact Reflex and gait examination: intact Reflexes: 1+: ankle, bicep, knee, tricep - Musculoskeletal Musculoskeletal: no pain - Psychiatric Psychiatric: mood/affect appropriate, cooperative Results - Laboratory Findings CBC and BMP: 01/12/17 05:26 01/12/17 05:26 Abnormal Lab Findings: Abnormal Labs 01/10/17 01/10/17 01/10/17 12:50 12:50 12:50 WBC RBC 2.82 L Hgb 8.8 L Hct 26.9 L Neutrophils # 8.0 H APTT Sodium 133 L Potassium 3.2 L BUN Creatinine 2.16 H Glucose 109 H POC Glucose (mg/dL) Calcium 7.7 L TIBC Ferritin Total Creatine Kinase 151 H CK-MB (CK-2) 3.6 H* Troponin I 0.122 H* Total Protein 5.2 L Albumin 2.5 L Triglycerides HDL Cholesterol 01/10/17 01/10/17 01/11/17 18:44 20:57 00:28 WBC RBC Hgb Hct Neutrophils # APTT Sodium Potassium BUN Creatinine Glucose POC Glucose (mg/dL) 110 H Calcium TIBC Ferritin Total Creatine Kinase CK-MB (CK-2) 3.2 H* 3.0 H* Troponin I 0.110 H* 0.091 H* Total Protein Albumin Triglycerides HDL Cholesterol 01/11/17 01/11/17 01/11/17 07:54 07:54 07:58 WBC RBC 2.47 L Hgb 7.6 L Hct 24.4 L Neutrophils # APTT 60.0 H Sodium Potassium BUN Creatinine Glucose POC Glucose (mg/dL) Calcium TIBC Ferritin Total Creatine Kinase CK-MB (CK-2) Troponin I Total Protein Albumin Triglycerides 156 H HDL Cholesterol 91 H 01/11/17 01/11/17 01/11/17 07:58 11:24 16:37 WBC RBC Hgb Hct Neutrophils # APTT Sodium Potassium 3.3 L BUN 21 H Creatinine 3.30 H Glucose POC Glucose (mg/dL) 161 H 250 H Calcium 8.0 L TIBC 165 L Ferritin 352 H Total Creatine Kinase CK-MB (CK-2) Troponin I Total Protein Albumin Triglycerides HDL Cholesterol 01/11/17 01/12/17 01/12/17 20:50 05:26 05:26 WBC 13.2 H RBC 2.51 L Hgb 8.2 L Hct 24.8 L Neutrophils # APTT Sodium Potassium BUN 32 H Creatinine 4.32 H Glucose 149 H POC Glucose (mg/dL) 166 H Calcium TIBC Ferritin Total Creatine Kinase CK-MB (CK-2) Troponin I Total Protein Albumin Triglycerides HDL Cholesterol 01/12/17 01/12/17 06:32 11:24 WBC RBC Hgb Hct Neutrophils # APTT Sodium Potassium BUN Creatinine Glucose POC Glucose (mg/dL) 147 H 119 H Calcium TIBC Ferritin Total Creatine Kinase CK-MB (CK-2) Troponin I Total Protein Albumin Triglycerides HDL Cholesterol Assessment and Plan (1) Acute metabolic encephalopathy Status: Acute Code(s): G93.41 - METABOLIC ENCEPHALOPATHY (2) Delirium Status: Acute Code(s): R41.0 - DISORIENTATION, UNSPECIFIED (3) Rapid atrial fibrillation Status: Acute Code(s): I48.91 - UNSPECIFIED ATRIAL FIBRILLATION (4) Acute renal failure superimposed on chronic kidney disease Status: Acute Code(s): N17.9 - ACUTE KIDNEY FAILURE, UNSPECIFIED; N18.9 - CHRONIC KIDNEY DISEASE, UNSPECIFIED Plan: This patient is a 7-year-old female admitted for severe chest pain and new onset atrial fibrillation. Neurology was consulted today due to obtundation and altered mental status. Patient was examined today and appears to have evidence of a moderate to severe metabolic encephalopathy. She is on hemodialysis 3 days a week for end-stage renal disease. She was seen by cardiology for the new onset atrial fibrillation and is being considered for anticoagulation with Xarelto. Patient does demonstrate evidence of mild clonus intermittently during her examination today. We will obtain routine EEG for further assessment. Gender when his computed tomography scan of the brain today which failed to reveal any acute abnormality. There was some degree of frontal lobe atrophy. Patient has a history of recent episode of delirium and was seen by psychiatry. We would recommend a psychiatry consultation for further adjustment of her psychiatric medications including Seroquel. We will continue close neurological follow-up of this patient during this admission. Her overall prognosis at this time remains very guarded. Time with Patient: Greater than 30
--- NOTE | 2017-01-12 21:47 | PN ---
DATE OF SERVICE: 01/12/2017 PRESENTING COMPLAINT: Chest pains, "not feeling right." INTERVAL HISTORY: This is a female who presented to the emergency department with chest pain, was found to be in atrial fibrillation with rapid ventricular response. Overnight the patient developed acute delirium and was threatening patients and nursing staff. She was uncooperative, seeing things. Patient received a dose of Haldol as well as a dose of Ativan. Patient's last dialysis was on Monday. Patient currently is thrashing around in the bed, sitter at the bedside. Unable to answer any questions at all. Calling out for family members. Reaching for things that are not there. REVIEW OF SYSTEMS: Unable to be completed at this time due to patient's current condition. CURRENT MEDICATIONS: 1. DuoNeb. 2. Norvasc. 3. Lipitor. 4. Pulmicort. 5. PhosLo. 6. Questran. 7. Celexa. 8. Plavix. 9. Aranesp. 10. Imdur. 11. Lopressor. 12. Minipress. PHYSICAL EXAMINATION: VITAL SIGNS: Temperature 97.5, pulse 72, respiratory rate 16, blood pressure 125/64, oxygen saturation 98% on room air. GENERAL APPEARANCE: Patient is thrashing around in the bed, reaching for things that are not there, calling out for family members or friends who are not in the room. EYES: Pupils equal. Conjunctivae normal. NECK: JVD not raised. Mass not palpable. RESPIRATORY: Diminished breath sounds bilaterally. Faint crackles noted throughout. Respiratory effort normal; mildly labored. CARDIOVASCULAR: First and second sounds noted. Trace edema. Rhythm is regular. ABDOMEN: Soft, nontender. Liver and spleen not palpable. PSYCHIATRY: Alert and oriented x0-1. Mood and affect delirious. INVESTIGATIONS: White blood cell count 13.2, hemoglobin 8.2. BUN 32, creatinine 4.32. Blood glucose 149. Calcium 8.5. Magnesium 2.0. ASSESSMENT: 1. Acute delirium of unknown origin. 2. New-onset atrial fibrillation with rapid ventricular response. Patient is now in sinus rhythm. 3. End-stage kidney disease, on hemodialysis, due to diabetic nephrosclerosis and hypertensive nephrosclerosis, stable. 4. Chronic obstructive pulmonary disease in an ex-smoker. 5. Coronary artery disease with prior history of stents and bypass. 6. Hyperlipidemia. 7. Essential hypertension, uncontrolled. 8. Primary osteoarthritis in multiple joints bilaterally. PLAN: Cardiology has recommended the discontinuance of Xarelto and the addition of Coumadin since patient is a dialysis patient. In light of patient's episode of delirium, Psychiatry has been re-consulted. Patient should not receive any medications that may in fact increase her episode of delirium such as Ativan or any other type of pain medications. For now patient has a sitter at the bedside for patient's safety. Case was discussed with the family by Dr. Carr and nurse practitioner Selene Bowen. Will follow closely. Patient was seen and examined by nurse practitioner Selene Bowen, and all the elements of the case were discussed with the attending, Dr. Carr.
[2017-01-12] MEDS: ENOXAPARIN 40 MG/0.4 ML SYRINGE SQ SCH (23:07)
[2017-01-12] MEDS: QUEtiapine 50 MG TAB PO SCH (23:23)
[2017-01-12] MEDS: traMADol 50 MG TAB PO PRN (23:38)
[2017-01-13 06:03] LABS: Glucose,Whole Blood 69 mg/dL (75-99)
[2017-01-13] MEDS: INSULIN LISPRO (humaLOG) 300 UNIT/3 ML VIAL SQ SCH ×4 (06:07→21:59)
[2017-01-13] MEDS: traMADol 50 MG TAB PO PRN ×2 (06:13→21:58)
[2017-01-13 06:28] LABS: Glucose,Whole Blood 86 mg/dL (75-99)
[2017-01-13 06:32] LABS: CHCM 32.4; HCT 24.2 % (34.0-46.0); HDW 2.56; HGB 7.7 gm/dL (11.4-16.0); MCH 30.7 pg (25.0-35.0); MCHC 31.9 g/dL (31.0-37.0); MCV 96.3 fL (80.0-100.0); Mean Platelet Volume 6.8; RBC 2.52 m/uL (3.80-5.40); RDW 13.7 % (11.5-15.5); WBC 11.8 k/uL (3.8-10.6)
[2017-01-13 06:37] LABS: INR 1.1 (<1.1); Prothrombin Time 10.6 sec (9.0-12.0)
[2017-01-13 06:43] LABS: Calcium 8.3 mg/dL (8.4-10.2); Potassium 3.8 mmol/L (3.5-5.1)
[2017-01-13] MEDS: CALCIUM ACETATE 667 MG CAP PO SCH ×3 (06:47→16:30)
--- NOTE | 2017-01-13 08:08 | P.PN ---
Subjective Patient is seen in follow-up for end-stage renal disease. She is maintained on hemodialysis on a Monday schedule. Patient received dialysis yesterday. She presented with atrial fibrillation with RVR and is now in sinus rhythm. Patient became confused and combative and was requiring restraints. She has been receiving Haldol and is also maintained on Seroquel. This morning she appears to be at her baseline. She is awake and alert. Denies chest pain or shortness of breath. Vital signs are stable. General: The patient appeared well nourished and normally developed. HEENT: Head exam is unremarkable. Neck is without jugular venous distension. LUNGS: Lungs are clear to auscultation and percussion. Breath sounds decreased. HEART: Rate and Rhythm are regular. First and second heart sounds normal. No murmurs, rubs or gallops. ABDOMEN: Abdominal exam reveals normal bowel sounds. Non-tender and non- distended. No evidence of peritonitis. EXTREMITITES: No clubbing, cyanosis, or edema. Objective - Vital Signs Vital signs: Vital Signs Temp 97.2 F L 01/13/17 04:00 Pulse 86 01/13/17 04:00 Resp 17 01/13/17 04:00 BP 130/68 01/13/17 04:00 Pulse Ox 95 01/13/17 04:00 Intake & Output 01/12/17 01/13/17 01/13/17 18:59 06:59 18:59 Intake Total 0 0 Output Total 50 Balance 0 -50 Weight 81.7 kg Intake: IV 0 Sodium Chloride 0.9% 1, 0 000 ml @ 20 mls/hr IV . Q24H [facility] Rx#:[id number] Oral 0 Output: Urine 50 Other: Voiding Method Bedpan # Voids 0 1 - Labs CBC & Chem 7: 01/13/17 06:04 01/13/17 06:04 Labs: Abnormal Lab Results - Last 24 Hours (Table) 01/12/17 01/13/17 01/13/17 Range/Units 11:24 06:02 06:04 WBC 11.8 H (3.8-10.6) k/uL RBC 2.52 L (3.80-5.40) m/uL Hgb 7.7 L (11.4-16.0) gm/dL Hct 24.2 L (34.0-46.0) % BUN (7-17) mg/dL Creatinine (0.52-1.04) mg/dL Glucose (74-99) mg/dL POC Glucose (mg/dL) 119 H 69 L (75-99) mg/dL Calcium (8.4-10.2) mg/dL 01/13/17 Range/Units 06:04 WBC (3.8-10.6) k/uL RBC (3.80-5.40) m/uL Hgb (11.4-16.0) gm/dL Hct (34.0-46.0) % BUN 18 H (7-17) mg/dL Creatinine 3.10 H (0.52-1.04) mg/dL Glucose 65 L (74-99) mg/dL POC Glucose (mg/dL) (75-99) mg/dL Calcium 8.3 L (8.4-10.2) mg/dL Assessment and Plan Plan: Assessment: #1. End-stage renal disease maintained on hemodialysis on a Monday schedule via permacath. #2. Atrial fibrillation with RVR. Now rate controlled. #3. Chronic kidney disease mineral bone disease. #4. Anemia of chronic kidney disease. Iron replete. #5. Hypertension with chronic kidney disease. Controlled. #6. Insulin-dependent diabetes mellitus. #7. Hypokalemia due to dialysis with a low potassium bath as well as diuretics. Magnesium also on the lower side. Improved. #8. Mild to moderate mitral regurgitation with preserved ejection fraction. #9. Altered mental status. This is not due to uremia. She was hallucinating last visit and was started on Seroquel which she still maintained on. She is also on prednisone which can be a contributing factor. Improved today. Neurology following. Plan: Hemodialysis tomorrow with goal 1-1/2-2 L ultrafiltration. Maintain PhosLo with meals. Maintain Aranesp. Cardiology following.
[2017-01-13] MEDS: BUDESONIDE 1 MG/2 ML NEBU INHALATION SCH ×2 (08:27→21:20)
[2017-01-13] MEDS: IPRATROPIUM-ALBUTEROL 3 ML NEB INHALATION SCH ×3 (08:27→21:20)
[2017-01-13] MEDS: amLODIPine 10 MG TAB PO SCH (09:45)
[2017-01-13] MEDS: predniSONE 20 MG TAB PO SCH (09:45)
[2017-01-13] MEDS: CITALOPRAM HYDROBROMIDE 20 MG TAB PO SCH (09:45)
[2017-01-13] MEDS: PRAZOSIN 1 MG CAP PO SCH ×3 (09:45→22:01)
[2017-01-13] MEDS: ATORVASTATIN 80 MG TAB PO SCH (09:45)
[2017-01-13] MEDS: ENOXAPARIN 40 MG/0.4 ML SYRINGE SQ SCH (09:45)
[2017-01-13] MEDS: METOPROLOL TARTRATE 50 MG TAB PO SCH ×2 (09:45→22:00)
[2017-01-13] MEDS: ISOSORBIDE MONONITRATE ER 60 MG TAB.ER.24H PO SCH (09:46)
[2017-01-13] MEDS: CHOLESTYRAMINE (WITH SUGAR) 4 GM PACKET PO SCH ×3 (09:46→17:37)
[2017-01-13] MEDS: CLOPIDOGREL 75 MG TAB PO SCH (09:46)
--- NOTE | 2017-01-13 10:17 | P.CN ---
Psychiatric Consult - . Consult date: 01/13/17 Consult:: IDENTIFYING DATA: Mrs. Agudelo is a 61-year-old female with acute renal failure superimposed on chronic renal failure. CC:"I freak out at dialysis, act stupid then after an hour or so of treatment I' m calm" HISTORY OF PRESENT ILLNESS: I reviewed the medical record and interviewed patietn Patient reported she was to have dialysis but then she became anxious, freaked out and acted stupid (could not say what she did and does not recall most of yesterday). Says she has had 4 dialysis and each time she gets very anxious, asks is there anything they can give her to help. States once on machine for one hour she feels calm. She also reports that she has in the past had "hallucinations" when falling asleep. Review of record shows this was noted on last admission and recommened to use seroquel at night. This has helped and she is not having hallucinations except when falling asleep. No past history of hallucinations until CRF. She denied experiencing auditory or visual hallucinations as well as other psychotic symptoms prior to her last admission. She denies depression, takes celexa for years. Anxiety around dialysis. PAST PSYCHIATRIC HISTORY: Denies ever seeing MH, but was seen last admission by psychiatry. Current and past meds include, citalopram for depression/ anxiety. Past use of xanax, now taking seroquel She denied history of psychiatric hospitalizations. She reported one suicide attempt at age 14 over a boy. PAST MEDICAL HISTORY: She has an end-stage disease secondary to her diabetes. She has had multiple admissions in past 2 months related to acute renal failure. Past hx of acute urinary tract infection, acute on chronic pulmonary obstructive disease, coronary artery disease, type 2 diabetes mellitus, hypertension, essential hypertension, probably osteoarthritis. The auditory visual hallucinations began after she did not have the outpatient hemodialysis. SUBSTANCE USE HISTORY: She denied a history of abuse of drugs or alcohol. SOCIAL HISTORY: She was born in [facility]. Her parents when she was young. Her parents had joint custody and she lived between her mother and father. She completed high school and began working after high school. She had her only child from her first marriage. The marriage ended in divorce because of her 's infidelity. Her second marriage lasted 25 years and her second about 12 years ago. She has 2 grandchildren. She lives with her daughter and grandchildren. She is unemployed and receives security disability. MENTAL STATUS EXAM: A&OX3, (January 12, 2017, [facility]) lying in bed, c/o being hot. Good eye contact. No abnormality of psychomotor activity. Speech normal volume, rate and production. Memory immediate and remote recall intact (presidents back to [place], 3/3 @0 min, 2/3 @5 min. Below average to average intelligence (subtraction 20-3, correctly, WORLD forwards and backwards) Coherent logical, goal directed thought process, no JOANN, no FOI, no pressured speech. +auditory and visual hallucinations when falling asleep. Denied suicidal ideation or wishes, denied homicidal ideation. Denied feeling hopeless, helpless or worthless. Mood neutral to anxious, affect full range decereased intensity. IMPRESSIONS: She is a 61-year-old female with multiple medical problems including end-stage renal disease, with several admission due to acute renal failure. Has recently started dialysis treatment and appears she becomes acutely anxious but after one hour of dialysis she calms down. She also recently developed hallucinations related to her renal failure and not having dialysis when indicated, started on seroquel 50mg qhs, that has resolved the majority of hallucinations but still with hypnogogic (when falling asleep)hallucinations. No history of psychiatric treatment or psychiatric hospitalizations, no suicidal ideations, no attempts in +50 years. No substance use. No clear family history of psychiatric disorders. Hallucinations are due to her renal function and her anxiety/freaking out is also due to renal function. 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 PLAN: Continue to treat medical cause of delirium. There is no indication for psychiatric hospitalization at this time. No indication for outpatient psychiatric treatment. Can be managed by primary care/ nephrology. Increase Seroquel to 100mg PO QHS. You might want to consider benzo only the morning of dialysis to help with anxiety of dialysis,
[2017-01-13 11:35] LABS: Glucose,Whole Blood 93 mg/dL (75-99)
[2017-01-13] MEDS ORDERED: ONDANSETRON 4 MG/2 ML VIAL IVP PRN (11:35)
[2017-01-13] MEDS ORDERED: PROCHLORPERAZINE 10 MG TAB PO PRN (11:37)
[2017-01-13 14:46] LABS: Mis test requested (Blood) Ionized Calcium
[2017-01-13] MEDS: SODIUM CHLORIDE 0.9% 1,000 ML IV SCH (16:36)
--- NOTE | 2017-01-13 16:53 | P.PN ---
Subjective This patient is a 61 year old female being evaluated for altered mental status and hallucinations. The patient is resting comfortably in bed this afternoon. There is a significant improvement in her overall mental status today. Patient states that she does not remember being evaluated for her neurological examination yesterday evening. She was very much in cephalopathic yesterday. Today she seems to be doing much better and is awake and alert. Her speech is clear. She was seen by psychiatry today for further evaluation of delirium. The recommendations are that her psychotic disorder and auditory and visual hallucinations are due to renal failure. She is being treated for underlying delirium as well. Her dose of Seroquel has been increased today. Patient states that usually with dialysis she does have difficulty with postdialysis confusion. Nephrology is following her as well. Her creatinine today is 3.10. We will await further recommendations from nephrology. Nephrology feels that her hallucinations are not due to her uremia. We will continue close neurological follow-up for the patient. She clearly is much more awake and alert today as compared to yesterday. Her overall prognosis at this time remains very guarded. Objective - Vital Signs Vital signs: Vital Signs Temp 98.4 F 01/13/17 12:00 Pulse 72 01/13/17 13:31 Resp 18 01/13/17 12:00 BP 106/63 01/13/17 12:00 Pulse Ox 91 L 01/13/17 12:00 Intake & Output 01/12/17 01/13/17 01/13/17 18:59 06:59 18:59 Intake Total 0 0 480 Output Total 50 150 Balance 0 -50 330 Weight 81.7 kg Intake: IV 0 Sodium Chloride 0.9% 1, 0 000 ml @ 20 mls/hr IV . Q24H [facility] Rx#:[id number] Oral 0 480 Output: Urine 50 150 Other: Voiding Method Bedpan # Voids 0 1 2 # Bowel Movements 0 - Exam Physical Examination: PHYSICAL EXAMINATION: Patient is resting comfortably in bed. VITAL SIGNS: Blood pressure is [104/58]. Heart rate is [69]. Respiration is [20] . Temperature is [99.1]. HEENT: Head is atraumatic, neck is supple, there were no carotid bruits. CHEST: Lungs are clear to auscultation and percussion. CARDIAC: S1, S2 normal rate and rhythm. There is no murmur. ABDOMEN: Soft and nontender. Bowel sounds are present. EXTREMITIES: There is no pedal edema. Peripheral pulses are present. Neurological examination: Patient is more awake and alert today. She is following simple commands. Cranial nerves II through XII are grossly intact. Motor examination fails to reveal any focal weakness. Deep tendon reflexes are 1+ and symmetric. Plantar responses flexor bilaterally. Coordination and gait cannot be assessed in this patient at this time. - Labs CBC & Chem 7: 01/13/17 06:04 01/13/17 06:04 Labs: Abnormal Lab Results - Last 24 Hours (Table) 01/13/17 01/13/17 01/13/17 Range/Units 06:02 06:04 06:04 WBC 11.8 H (3.8-10.6) k/uL RBC 2.52 L (3.80-5.40) m/uL Hgb 7.7 L (11.4-16.0) gm/dL Hct 24.2 L (34.0-46.0) % BUN 18 H (7-17) mg/dL Creatinine 3.10 H (0.52-1.04) mg/dL Glucose 65 L (74-99) mg/dL POC Glucose (mg/dL) 69 L (75-99) mg/dL Calcium 8.3 L (8.4-10.2) mg/dL Assessment and Plan (1) Acute metabolic encephalopathy Status: Acute Code(s): G93.41 - METABOLIC ENCEPHALOPATHY (2) Delirium Status: Acute Code(s): R41.0 - DISORIENTATION, UNSPECIFIED (3) Rapid atrial fibrillation Status: Acute Code(s): I48.91 - UNSPECIFIED ATRIAL FIBRILLATION (4) Acute renal failure superimposed on chronic kidney disease Status: Acute Code(s): N17.9 - ACUTE KIDNEY FAILURE, UNSPECIFIED; N18.9 - CHRONIC KIDNEY DISEASE, UNSPECIFIED Plan: This patient is being evaluated for altered mental status and confusion. She was very much encephalopathic yesterday. Today she is much improved in terms of her mental status. She is following all commands. She is alert and oriented 3. She was seen by psychiatry today for evaluation of her delirium. Her dose of Seroquel was increased today. Patient seems to be doing much better today. We will continue close neurological follow-up for the patient. She is being followed by nephrology as well for end-stage renal disease. Her serum creatinine today was 3.10. She continues on hemodialysis 3 days a week. We will continue close neurological follow-up with the patient during this admission. Her overall prognosis at this time remains very guarded.
[2017-01-13 17:01] LABS: Glucose,Whole Blood 257 mg/dL (75-99)
[2017-01-13] MEDS: WARFARIN 5 MG TAB PO SCH (17:37)
--- NOTE | 2017-01-13 18:22 | PN ---
DATE OF SERVICE: 01/12/2017 ATTENDING NOTE: This patient was seen and examined by me on 01/12/17. I reviewed the note of my nurse practitioner Ms. Bowen. I discussed it with her and agree with the same. This is a patient who developed acute delirium and had to get a dose of Ativan and Haldol before she actually started resting. She was uncooperative at night before that. She is lethargic and sleepy right now. On examination, afebrile. Blood pressure 120/64. LUNGS: Slightly decreased breath sounds. CARDIOVASCULAR: First and second sounds normal. No edema. Patient is arousable. ASSESSMENT: 1. Acute delirium, multifactorial, probably metabolic from dialysis, change in environment. 2. Paroxysmal atrial fibrillation, now in sinus rhythm. PLAN: Will get a psychiatry consultation, neurological consultation. CT scan of the brain was ordered that actually came back negative. I spoke to patient's daughter at length; told her that this appears to be metabolic and expect this to actually turn around. For anticoagulation, will start the patient on Coumadin as opposed to Xarelto. Discussed with Dr. Barillas. Total time spent was 45 minutes, including 25 minutes of discussion.
--- NOTE | 2017-01-13 20:25 | PN ---
DATE OF SERVICE: 01/13/2017 PRESENTING COMPLAINT: Chest pains, "not feeling right." INTERVAL HISTORY: This is a female who presented to the emergency department with chest pains, was found to be in atrial fibrillation with rapid ventricular response. Today patient is sitting up in bed. Sitter is currently at the bedside. Patient had an outburst of delirious behavior in the previous 24 hours. Patient is aware of her behavior but is not able to specifically say what she did do or what she said to people. Today, however, she is able to answer straightforward questions. She is alert and oriented x3, fully capable of carrying on a conversation. She does have some noticeable myoclonic jerks periodically. Otherwise, she has eaten a meal. States that she feels very tired. Review of systems was done for constitutional, cardiovascular, GI, pulmonary, with relevant findings as above. CURRENT MEDICATIONS: 1. Norvasc 10 mg p.o. daily. 2. Lipitor 80 mg p.o. daily. 3. Pulmicort 1 mg inhalation b.i.d. 4. PhosLo 667 mg p.o. t.i.d. with meals. 5. Questran 4 mg p.o. ( ) between meals. 6. Celexa 40 mg p.o. daily. 7. Plavix 75 mg p.o. daily. 8. Aranesp 40 mcg subcutaneously every 7 days. 9. Lopressor 50 mg p.o. b.i.d. 10. Imdur 60 mg p.o. daily. 11. Minipress 2 mg p.o. t.i.d. 12. Prednisone 20 mg p.o. daily. 13. Seroquel 50 mg p.o. at bedtime. 14. Tramadol 50 mg p.o. q.4 hours. 15. Coumadin 5 mg p.o. daily. PHYSICAL EXAMINATION: VITAL SIGNS: Temperature 98.4, pulse 67, respirations 18, blood pressure 106/63, oxygen saturation 91% on 2 L nasal cannula. EYES: Pupils equal. Conjunctivae normal. NECK: JVD not raised. Mass not palpable. LUNGS: Sounds diminished bilaterally. RESPIRATORY: Effort normal. CARDIOVASCULAR: First and second sounds noted. Patient is in sinus rhythm. Trace edema to her lower extremities. ABDOMEN: Soft, nontender. Liver and spleen not palpable. PSYCHIATRY: Alert and oriented x3. Mood and affect are normal. INVESTIGATIONS: White blood cell count 11.8, hemoglobin 7.7, platelet count 289. BUN 18, creatinine 3.10. Calcium 8.3. On CT of the brain, cerebral atrophy and small vessel ischemia are noted; no significant change compared to the last exam. ASSESSMENT: 1. Acute delirium of unknown origin. 2. New-onset atrial fibrillation with rapid ventricular response. Patient is now in sinus rhythm. 3. End-stage kidney disease, on hemodialysis, due to diabetic nephrosclerosis and hypertensive nephrosclerosis, stable. 4. Chronic obstructive pulmonary disease in an ex-smoker. 5. Coronary artery disease with a history and prior stents and bypass. 6. Hyperlipidemia. 7. Essential hypertension, uncontrolled. 8. Primary osteoarthritis in multiple joints bilaterally. PLAN: Patient remains on Coumadin for her anticoagulation needs. Psychiatry saw the patient, and their recommendation is to continue to treat the medical cause of the delirium. They do not recommend psychiatric hospitalization or outpatient psych treatment. They also recommend increasing Seroquel to 100 mg p.o. at bedtime. Neurology recommended that patient have an EEG; awaiting those results. Patient will receive a treatment of dialysis today. Will follow patient's daily lab values. Will continue to monitor. Patient was seen and examined by nurse practitioner, Selene Bowen, and all elements of the case were discussed with the attending, Dr. Carr.
[2017-01-13 20:57] LABS: Glucose,Whole Blood 216 mg/dL (75-99)
[2017-01-13] MEDS: QUEtiapine 50 MG TAB PO SCH (22:01)
--- NOTE | 2017-01-13 22:55 | EEG ---
DATE OF SERVICE: 01/13/2017 INDICATIONS FOR EXAMINATION: This patient is a 61 -year-old female being evaluated for altered mental status and hallucinations. The patient has history of end stage renal disease and is on dialysis. AGE: 61Y EEG FINDINGS: A routine 21 channel awake digital EEG recording was accomplished utilizing the 10-20 international system with bipolar and referential montages. The background activity in the most alert resting state consists of a low to medium amplitude, poorly developed and poorly sustained 6-7 Hz activity over the posterior head regions. This posterior rhythm attenuates to eye opening. There is a small amount of low amplitude 18-20 Hz beta activity seen maximally over the anterior head regions. Muscle and movement artifact was observed on a few occasions during the tracing. Hyperventilation was not performed. Photic stimulation at flash frequencies of 2-30 Hz produced a good symmetrical driving response. On a few occasions, generalized sharp waves were seen. IMPRESSION: This EEG is moderately abnormal in a diffuse fashion due to slowing of the EEG background. The EEG failed to reveal any focal, lateralized or epileptiform abnormalities. Clinical correlation is recommended.
[2017-01-14] MEDS: BUDESONIDE 1 MG/2 ML NEBU INHALATION SCH (07:41)
[2017-01-14 07:42] LABS: Glucose,Whole Blood 123 mg/dL (75-99)
[2017-01-14] MEDS: IPRATROPIUM-ALBUTEROL 3 ML NEB INHALATION SCH ×2 (07:42→13:17)
[2017-01-14 08:01] LABS: CH 31.1; HCT 22.1 % (34.0-46.0); HDW 2.47; HGB 7.1 gm/dL (11.4-16.0); MCH 31.2 pg (25.0-35.0); MCV 97.6 fL (80.0-100.0); RBC 2.26 m/uL (3.80-5.40); RDW 13.5 % (11.5-15.5); WBC 12.3 k/uL (3.8-10.6)
[2017-01-14 08:37] LABS: Calcium 7.9 mg/dL (8.4-10.2); Potassium 3.7 mmol/L (3.5-5.1)
[2017-01-14] MEDS: CLOPIDOGREL 75 MG TAB PO SCH (08:50)
[2017-01-14] MEDS: predniSONE 20 MG TAB PO SCH (08:50)
[2017-01-14] MEDS: ATORVASTATIN 80 MG TAB PO SCH (08:50)
[2017-01-14] MEDS: CALCIUM ACETATE 667 MG CAP PO SCH ×3 (08:51→18:12)
[2017-01-14] MEDS: CITALOPRAM HYDROBROMIDE 20 MG TAB PO SCH (08:51)
[2017-01-14] MEDS: INSULIN LISPRO (humaLOG) 300 UNIT/3 ML VIAL SQ SCH ×3 (08:52→18:12)
[2017-01-14] MEDS: amLODIPine 10 MG TAB PO SCH (08:57)
[2017-01-14] MEDS: PRAZOSIN 1 MG CAP PO SCH ×2 (08:57→15:20)
[2017-01-14] MEDS: METOPROLOL TARTRATE 50 MG TAB PO SCH (08:57)
[2017-01-14] MEDS: ISOSORBIDE MONONITRATE ER 60 MG TAB.ER.24H PO SCH (08:57)
[2017-01-14] MEDS ORDERED: ENOXAPARIN 30 MG/0.3 ML SYRINGE SQ SCH (09:00)
[2017-01-14] MEDS: CHOLESTYRAMINE (WITH SUGAR) 4 GM PACKET PO SCH ×2 (09:19→15:20)
--- NOTE | 2017-01-14 11:11 | PN ---
DATE OF SERVICE: 01/13/2017 ATTENDING NOTE: This patient was seen and examined by me on 01/13/2017. I reviewed the note of my nurse practitioner, Ms. Bowen. Discussed and agreed with the same. Patient is doing much better. Sitting up. More comfortable. Delirium is greatly improved. Actually able to talk comfortably. On exam, afebrile. Blood pressure 106/63. RESPIRATORY: Effort normal. LUNGS: Decreased breath sounds. CARDIOVASCULAR: First and second sounds normal. No edema. PSYCH: Alert and oriented x3. INVESTIGATIONS: White count 11.8, hemoglobin 7.7. ASSESSMENT: 1. Acute delirium, multifactorial metabolic, much improved. 2. Paroxysmal atrial fibrillation with rapid ventricular response, ( ) now improved. 3. End-stage kidney disease, on hemodialysis. PLAN: The patient doing much better now. The patient has been started on Coumadin for anticoagulation. Patient's Seroquel at night has been increased by Psychiatry. Patient is getting EEG. Hopefully can be discharged in 24 hours.
[2017-01-14 12:12] LABS: Glucose,Whole Blood 133 mg/dL (75-99)
[2017-01-14 12:32] LABS: INR 2.2 (<1.1); Prothrombin Time 20.8 sec (9.0-12.0)
[2017-01-14] MEDS ORDERED: traMADol 50 MG TAB PO PRN (14:08)
--- NOTE | 2017-01-14 16:08 | P.PN ---
Subjective This patient is a 61 year old female being evaluated for altered mental status and hallucinations. The patient is resting comfortably in bed this afternoon. There is a significant improvement in her overall mental status today. Patient states that she does not remember being evaluated for her neurological examination yesterday evening. She was very much in cephalopathic yesterday. Today she seems to be doing much better and is awake and alert. Her speech is clear. She was seen by psychiatry today for further evaluation of delirium. The recommendations are that her psychotic disorder and auditory and visual hallucinations are due to renal failure. She is being treated for underlying delirium as well. Her dose of Seroquel has been increased today. Patient states that usually with dialysis she does have difficulty with postdialysis confusion. Nephrology is following her as well. Her creatinine today is 3.10. We will await further recommendations from nephrology. Nephrology feels that her hallucinations are not due to her uremia. We will continue close neurological follow-up for the patient. Patient continues to show significant improvement in her mental status today. As noted she is on hemodialysis for treatment of end-stage renal disease. She does seem to be following all commands today and is alert and speech is clear. We will continue close neurological follow-up for this patient. Her overall prognosis at this time remains very guarded. Objective - Vital Signs Vital signs: Vital Signs Temp 97.6 F 01/14/17 07:00 Pulse 80 01/14/17 13:28 Resp 18 01/14/17 08:00 BP 132/56 01/14/17 07:00 Pulse Ox 92 L 01/14/17 15:04 Intake & Output 01/13/17 01/14/17 01/14/17 18:59 06:59 18:59 Intake Total 480 250 480 Output Total 150 Balance 330 250 480 Intake: Oral 480 250 480 Output: Urine 150 Other: Voiding Method Toilet # Voids 1 1 1 # Bowel Movements 0 0 - Exam Physical examination: PHYSICAL EXAMINATION: Patient is resting comfortably in bed. VITAL SIGNS: Blood pressure is [132/56]. Heart rate is [70]. Respiration is [22] . Temperature is [97.7]. HEENT: Head is atraumatic, neck is supple, there were no carotid bruits. CHEST: Lungs are clear to auscultation and percussion. CARDIAC: S1, S2 normal rate and rhythm. There is no murmur. ABDOMEN: Soft and nontender. Bowel sounds are present. EXTREMITIES: There is no pedal edema. Peripheral pulses are present. Neurological examination: Patient's neurological examination is nonfocal. Patient is awake alert and oriented 3. Mental status is much improved today. - Labs CBC & Chem 7: 01/14/17 07:32 01/14/17 07:32 Labs: Abnormal Lab Results - Last 24 Hours (Table) 01/13/17 01/13/17 01/14/17 Range/Units 17:00 20:55 07:08 WBC (3.8-10.6) k/uL RBC (3.80-5.40) m/uL Hgb (11.4-16.0) gm/dL Hct (34.0-46.0) % PT (9.0-12.0) sec Sodium (137-145) mmol/L BUN (7-17) mg/dL Creatinine (0.52-1.04) mg/dL Glucose (74-99) mg/dL POC Glucose (mg/dL) 257 H 216 H 123 H (75-99) mg/dL Calcium (8.4-10.2) mg/dL 01/14/17 01/14/17 01/14/17 Range/Units 07:32 07:32 11:38 WBC 12.3 H (3.8-10.6) k/uL RBC 2.26 L (3.80-5.40) m/uL Hgb 7.1 L (11.4-16.0) gm/dL Hct 22.1 L (34.0-46.0) % PT 20.8 H (9.0-12.0) sec Sodium 134 L (137-145) mmol/L BUN 30 H (7-17) mg/dL Creatinine 4.22 H (0.52-1.04) mg/dL Glucose 119 H (74-99) mg/dL POC Glucose (mg/dL) (75-99) mg/dL Calcium 7.9 L (8.4-10.2) mg/dL 01/14/17 Range/Units 12:10 WBC (3.8-10.6) k/uL RBC (3.80-5.40) m/uL Hgb (11.4-16.0) gm/dL Hct (34.0-46.0) % PT (9.0-12.0) sec Sodium (137-145) mmol/L BUN (7-17) mg/dL Creatinine (0.52-1.04) mg/dL Glucose (74-99) mg/dL POC Glucose (mg/dL) 133 H (75-99) mg/dL Calcium (8.4-10.2) mg/dL Assessment and Plan (1) Acute metabolic encephalopathy Status: Acute Code(s): G93.41 - METABOLIC ENCEPHALOPATHY (2) Delirium Status: Acute Code(s): R41.0 - DISORIENTATION, UNSPECIFIED (3) Rapid atrial fibrillation Status: Acute Code(s): I48.91 - UNSPECIFIED ATRIAL FIBRILLATION (4) Acute renal failure superimposed on chronic kidney disease Status: Acute Code(s): N17.9 - ACUTE KIDNEY FAILURE, UNSPECIFIED; N18.9 - CHRONIC KIDNEY DISEASE, UNSPECIFIED Plan: This patient is being evaluated for altered mental status and confusion. She was very much encephalopathic yesterday. Today she is much improved in terms of her mental status. She is following all commands. She is alert and oriented 3. She was seen by psychiatry today for evaluation of her delirium. Her dose of Seroquel was increased today. Patient seems to be doing much better today. We will continue close neurological follow-up for the patient. She is being followed by nephrology as well for end-stage renal disease. Her serum creatinine today was 3.10. She continues on hemodialysis 3 days a week. We will continue close neurological follow-up with the patient during this admission. We will continue close follow-up for this patient. She has history of acute delirium etiology unknown. She is doing much better in terms of her mental status today. She is to continue with treatment of her underlying end- stage renal disease. Her creatinine is slowly improving. We will continue close neurological follow-up with the patient. Her overall prognosis at this time remains very guarded.
--- NOTE | 2017-01-14 16:24 | XR ---
EXAMINATION TYPE: XR chest 1V portable DATE OF EXAM: 01/14/2017 COMPARISON: Prior chest x-ray 10 Jan 2017 HISTORY: Shortness of breath TECHNIQUE: Single frontal view of the chest is obtained. FINDINGS: Similar findings. Central venous catheter stable. Patient is post median sternotomy. Heart size may be accentuated by rotation. No pneumothorax or pleural effusion. Mild prominence of the int erstitium and central vascularity. No significant edema. IMPRESSION: Similar to prior exam. There may be some mild volume overload.
[2017-01-14 16:33] VITALS: RESP 16
--- NOTE | 2017-01-14 16:38 | PN ---
Patient is seen for followup for end-stage renal disease. She is currently seen on hemodialysis, tolerating her treatment well. There are plans for discharge today after she receives 1 unit of packed RBCs for a hemoglobin of 7.1. No active bleeding noted at this time. On examination, blood pressure is 132/56, heart rate 76 per minute. She is afebrile. EXAMINATION OF THE HEART: S1 and S2. EXAMINATION OF LUNGS: Bilateral breath sounds are heard. Decreased breath sounds in bases. ABDOMEN: Soft, nontender. Examination of the lower extremities shows no significant edema. COMPUTER TECH exam shows patient is moving all 4 extremities. Labs show sodium 134, potassium 3.7. Hemoglobin 7.1 g/dL. ASSESSMENT: 1. End-stage renal disease on hemodialysis on a Monday, , Monday schedule as outpatient. 2. Anemia with no active bleeding noted, maintained on Aranesp. Patient will receive 1 unit packed RBCs prior to discharge. 3. Altered mentation, currently resolved. PLAN: Patient can be discharged post dialysis. We will follow up as outpatient on Monday.
[2017-01-14 17:14] LABS: Glucose,Whole Blood 257 mg/dL (75-99)
[2017-01-14 17:41] VITALS: BP 138/58; PULSE 87; TEMP 97.8
[2017-01-14] MEDS: WARFARIN 5 MG TAB PO SCH (18:12)
[2017-01-15] MEDS ORDERED: ENOXAPARIN 30 MG/0.3 ML SYRINGE SQ SCH (09:00)
--- NOTE | 2017-01-15 18:42 | DS ---
DATE OF ADMISSION: 01/10/2017 DATE OF DISCHARGE: 01/14/2017 FINAL DIAGNOSES: 1. Acute delirium possibly medication induced and contributed to renal failure. 2. New onset atrial fibrillation with rapid ventricular response, paroxysmal. 3. End-stage renal disease on hemodialysis, stage V, chronic kidney disease. 4. Possible secondary diabetic nephrosclerosis, hypertension nephrosclerosis. 5. Chronic obstructive pulmonary disease. 6. Coronary artery disease with coronary artery bypass grafting and stent. 7. Hyperlipidemia. 8. History of hypertension, uncontrolled. 9. Primary degenerative joint disease in multiple joints bilaterally. 10. FULL CODE. DISCHARGE DISPOSITION: The patient will be discharged in a stable condition with guarded prognosis. Total time taken 35 minutes. HISTORY OF PRESENT ILLNESS: This 61-year-old woman with a past medical history of multiple medical problems was admitted with change in mental status and multiple medical issues. Patient was treated symptomatically. Patient improved significantly. Basic labs were negative and CT was also negative. Hemoglobin 7.1. On exam, vitals are stable. CARDIOVASCULAR SYSTEM: S1, S2 muffled. Abdomen soft. Central nervous system: No focal deficits. DISCHARGE ADVICE AND MEDICATIONS: 1. Diet is cardiac. 2. Activity limited until follow-up. 3. Follow-up with Dr. Gabbie Encarnacion in 1 to 2 days. 4. Follow up with Dr. Montalvo as recommended. 5. Continued hemodialysis. 6. Medications will be as follows: 7. Norvasc 10 mg p.o. daily. 8. Aspirin 81 mg daily. 9. Lipitor 80 mg p.o. daily. 10. Pulmicort 1 mg b.i.d. 11. PhosLo 667 t.i.d. 12. Cholestyramine 4 grams t.i.d. 13. Celexa 40 mg daily. 14. Plavix 75 milligrams p.o. daily. 15. Fluticasone 2 sprays daily. 16. Albuterol Atrovent updrafts q.i.d. and p.r.n. 17. Imdur ER 60 mg p.o. daily. 18. Imodium 2 mg p.o. t.i.d. p.r.n. 19. Lopressor 50 mg p.o. b.i.d. 20. Multivitamin 1 p.o. daily. 21. Nitrostat 0.4 sublingual p.r.n. 22. Minipres 2 mg p.o. t.i.d. 23. Prednisone 20 mg p.o. daily in the outpatient setting. 24. Seroquel 50 mg p.o. q.h.s. 25. Sodium bicarb 650 mg p.o. a.c. b.i.d. 26. Ultram 50 mg q.4 p.r.n. 27. Coumadin 5 mg p.o. daily. 28. Monitor CBC, BMP, PT, INR closely in the outpatient setting. 29. Follow with cardiology as recommended. MTDD
== END 2017-01-14 18:16 | disposition home or self-care (01) | DRG 308 ==
LOC: EC 11:52 → 6SEL 15:59 → 4MS4W 01-13 16:03
PROVIDERS: ADMIT Hospitalist; ATTEND Hospitalist
PROC: 5A1D60Z (ICD-10-PCS; principal; 2017-01-12)
PROC: 30263N1 (ICD-10-PCS; 2017-01-14)
DX: I48.0 Paroxysmal atrial fibrillation (principal); N18.6 End stage renal disease; G93.41 Metabolic encephalopathy; N17.9 Acute kidney failure, unspecified; I12.0 Hypertensive chronic kidney disease with stage 5 chronic kidney disease or end stage renal disease; E11.21 Type 2 diabetes mellitus with diabetic nephropathy; E11.51 Type 2 diabetes mellitus with diabetic peripheral angiopathy without gangrene; E11.22 Type 2 diabetes mellitus with diabetic chronic kidney disease; G25.3 Myoclonus; E83.42 Hypomagnesemia; E87.6 Hypokalemia; M19.91 Primary osteoarthritis, unspecified site; I25.2 Old myocardial infarction; H26.9 Unspecified cataract; F41.9 Anxiety disorder, unspecified; E78.5 Hyperlipidemia, unspecified; J44.9 Chronic obstructive pulmonary disease, unspecified; D63.1 Anemia in chronic kidney disease; F29 Unspecified psychosis not due to a substance or known physiological condition; I34.0 Nonrheumatic mitral (valve) insufficiency; I25.10 Atherosclerotic heart disease of native coronary artery without angina pectoris; Z86.010 Personal history of colon polyps; Z87.891 Personal history of nicotine dependence; Z95.1 Presence of aortocoronary bypass graft; Z91.018 Allergy to other foods; Z88.0 Allergy status to penicillin; Z99.2 Dependence on renal dialysis; Z78.1 Physical restraint status; Z95.5 Presence of coronary angioplasty implant and graft; Z79.82 Long term (current) use of aspirin; Z79.02 Long term (current) use of antithrombotics/antiplatelets; Z79.51 Long term (current) use of inhaled steroids; Z79.52 Long term (current) use of systemic steroids; Z79.899 Other long term (current) drug therapy; Z82.49 Family history of ischemic heart disease and other diseases of the circulatory system; Z83.3 Family history of diabetes mellitus
CPT/HCPCS: 36415; 70450; 71010; 71020; 80048; 80053; 80061; 82330; 82550; 82553; 82728; 83036; 83540; 83550; 83735; 84484; 85025; 85027; 85610; 85730; 86850; 86870; 86880; 86900; 86901; 86920; 90935; 93005; 93306; 94640; 94760; 95819; 96365; 96366; 96376; 99285

== ENCOUNTER → 2017-03-22 | Outpatient (CLI) | payer MEDICARE, OTHER ==
--- NOTE | 2017-03-22 08:53 | US ---
EXAMINATION TYPE: US abdomen complete DATE OF EXAM: 03/22/2017 COMPARISON: NONE CLINICAL HISTORY: N18.6 end stage renal disease. gen abd discomfort/tenderness EXAM MEASUREMENTS: Liver Length: 18.4 cm Gallbladder Wall: 0.2 cm CBD: 0.6 cm Spleen: 9.4 cm Right Kidney: 10.7 x 4.8 x 4.3 cm Left Kidney: 10.5 x 4.8 x 4.9 cm Some exam limitations due to larger habitus and overlying bowel gas. Pancreas: Obscured by bowel gas Liver: hepatomegaly, mildly hyperechoic and heterogenous. Gallbladder: multiple mobile stones with shadowing, neck clear, no wall thickening Evidence for sonographic Hinojosa's sign: some tenderness CBD: wnl measuring 6 mm. Spleen: wnl Right Kidney: wnl Left Kidney: wnl Upper IVC: wnl as seen Abd Aorta: Obscured by overlying bowel gas The liver is homogenous. The intrahepatic portion of the IVC and proximal abdominal aorta are within normal limits. There is no evidence of cholelithiasis. Common bile duct is unremarkable. The visu alized portions of the pancreas are homogenous. The spleen is unremarkable. Kidneys are symmetric a nd free of hydronephrosis. No renal lesions are seen. IMPRESSION: 1. Cholelithiasis and tenderness over the right upper quadrant with no other sonographic evidence of cholecystitis. 2. Mild hepatic steatosis.
--- NOTE | 2017-03-22 09:34 | US ---
EXAMINATION TYPE: US pelvic complete DATE OF EXAM: 03/22/2017 COMPARISON: NONE CLINICAL HISTORY: N18.6 end stage renal disease. gen pelvic pain, prior c- section TECHNIQUE: Transvaginal (TV) Scanned TA initially, unable to visualize uterus or ovaries, performed TV to complete exam. EXAM MEASUREMENTS: Uterus: 6.6 x 3.2 x 4.3 cm Endometrial Stripe: 0.2 cm Right Ovary: 1.8 x 1.1 x 0.8 cm Left Ovary: 2.6 x 1.7 x 2.4 cm 1. Uterus: Retroverted wnl 2. Endometrium: wnl 3. Right Ovary: wnl 4. Left Ovary: wnl 5. Bilateral Adnexa: wnl 6. Posterior cul-de-sac: minimal free fluid seen IMPRESSION: 1. Unremarkable uterus, endometrial thickness, and ovaries. 2. Scant amount of free fluid within the pelvis, likely physiologic. MTDD
== END | disposition home or self-care (01) ==
LOC: RADUSWWP 07:59
PROVIDERS: ATTEND Internal Medicine
DX: K80.20 Calculus of gallbladder without cholecystitis without obstruction (principal); K76.0 Fatty (change of) liver, not elsewhere classified; N18.6 End stage renal disease
CPT/HCPCS: 76700; 76830; 76856

== ENCOUNTER 2017-03-24 07:48 | Day surgery (SDC) | payer MEDICARE, OTHER ==
[2017-03-22 17:21] VITALS: BMI 32.5
[~2017-03-24 07:48] MED LIST changes: +LIDOCAINE 1% 20 ML VIAL (10MG/ML) FOR IV START INTRADERMA PRN
[2017-03-24 07:59] VITALS: TEMP 98.1
[2017-03-24] MEDS ORDERED: LACTATED RINGERS 1,000 ML IV ONE (08:07)
[2017-03-24] MEDS ORDERED: LIDOCAINE 1% INJ 10MG/ML (20 ML MDV) ONE (08:26)
[2017-03-24] MEDS ORDERED: PROPOFOL 10 MG/ML 20 ML VIAL IV ONE (08:26)
[2017-03-24 08:34] LABS: Basophils # (A) 0.1 k/uL (0-0.2); Basophils % (A) 1 %; CHCM 33.1; Eosinophils # (A) 0.4 k/uL (0-0.7); Eosinophils % (A) 5 %; HDW 2.77; HGB 13.4 gm/dL (11.4-16.0); Luc # (Auto) 0.21; Luc % (Auto) 3; Lymphocytes # (A) 1.5 k/uL (1.0-4.8); Lymphocytes % (A) 19 %; MCH 33.6 pg (25.0-35.0); MCHC 33.5 g/dL (31.0-37.0); MCV 100.1 fL (80.0-100.0); Mean Platelet Volume 7.2; Monocytes # (A) 0.4 k/uL (0-1.0); Monocytes % (A) 5 %; Neutrophils # (A) 5.4 k/uL (1.3-7.7); Neutrophils % (A) 68 %; RDW 13.3 % (11.5-15.5); WBC (Perox) 8.75
--- NOTE | 2017-03-24 09:08 | P.PCN ---
Date of Procedure: 03/24/17 Preoperative Diagnosis: Postoperative Diagnosis: Procedure(s) Performed: Brief history: Patient is a pleasant 61-year-old white female, scheduled for an elective upper endoscopy as well as colonoscopy as a part of follow-up of duodenal polyp as well as multiple colon polyps that were noted an upper endoscopy as well as colonoscopy done in October 2016. The patient was noted to have a 2 cm duodenal polyp and 14 colon polyps all of which showed tubular adenoma/tubular villous adenoma. She is scheduled for repeat surveillance colonoscopy today as well as upper endoscopy Procedure performed: Esophagogastroduodenoscopy with biopsy Colonoscopy with snare polypectomy Preoperative diagnosis: Follow-up duodenal polyp Follow-up multiple colon polyps Anesthesia: MAC Procedure: After informed consent was obtained from the patient was brought into the endoscopy unit and IV sedation was administered by anesthesia under continuous monitoring. Initially upper endoscopy was done. The Olympus GF 160 video endoscope was inserted inserted into the mouth and esophagus intubated without any difficulty and was gradually advanced into the stomach and duodenum and carefully examined. The bulb and second part of the duodenum appeared normal. In the second part of the duodenum there was a 2 cm for submucosal nodule and multiple biopsies were done from this area. The scope was then withdrawn into the stomach adequately insufflated with air and upon careful examination the antrum and body, cardia and fundus appeared normal. The scope was then withdrawn into the esophagus. The GE junction was located at 40 cm to the incisors. There were linear erosions noted in the distal esophagus consistent with LA grade C reflux esophagitis. Rest of the esophagus appeared normal. Patient tolerated the procedure well. At this time the patient continued to remain sedation. Initial digital rectal examination was normal. Olympus CF 160 video colonoscope was then inserted into the rectum and gradually advanced to the cecum without any difficulty. Careful examination was performed as the scope was gradually being withdrawn. The prep was extremely poor throughout the colon. Irrigation was performed using irrigation system. The cecum, appeared normal. In the ascending colon there was a 1 cm polyp removed by snare polypectomy. In the transverse colon there was a 2 cm polyp removed by snare polypectomy. In the descending colon there was a 2 cm polyp removed by snare polypectomy. In the sigmoid colon there was a 1 cm polyp removed by snare polypectomy. The rest of the visualized portions of the ascending colon, transverse colon, descending colon, sigmoid colon and rectum appeared normal. Several areas of the colon could not be adequately visualized because of poor prep noticed throughout the colon. Retroflexion was performed in the rectum and no lesions were noted. Patient tolerated the procedure well. Impression: 1. Upper endoscopy revealed 2 cm duodenal some mucosal polyp that was biopsied and LA grade C reflux esophagitis 2. Colonoscopy revealed: a) 1 cm ascending colon polyp status post polypectomy b) 2 cm and 1 cm proximal transverse colon polyp status post polypectomy c) 2 cm descending colon polyp status post polypectomy d) 1 cm sigmoid colon polyp serous was snare polypectomy e) Prep throughout the entire colon Recommendations: Findings of this examination were discussed with the patient as well Bashir family. She was advised to follow with the biopsy results. Given extremely poor prep encountered with this examination I will advise her to have a repeat colonoscopy in one year. Implants: Indications for Procedure: Operative Findings: Description of Procedure:
[2017-03-24 09:15] VITALS: RESP 16
[2017-03-24 09:25] VITALS: BP 130/58; PULSE 66
[2017-03-29 11:08] LABS: Glucose,Whole Blood 115 mg/dL (75-99)
== END 2017-03-24 10:29 | disposition home or self-care (01) ==
LOC: ORWHC2ENDO 07:48
PROVIDERS: ATTEND Internal Medicine Gastroenterology
DX: Z12.11 Encounter for screening for malignant neoplasm of colon (principal); K29.80 Duodenitis without bleeding; D12.2 Benign neoplasm of ascending colon; D12.3 Benign neoplasm of transverse colon; D12.5 Benign neoplasm of sigmoid colon; D12.4 Benign neoplasm of descending colon; Z86.010 Personal history of colon polyps; Z87.19 Personal history of other diseases of the digestive system; E78.5 Hyperlipidemia, unspecified; I12.9 Hypertensive chronic kidney disease with stage 1 through stage 4 chronic kidney disease, or unspecified chronic kidney disease; E11.9 Type 2 diabetes mellitus without complications; N18.9 Chronic kidney disease, unspecified; I25.2 Old myocardial infarction; Z95.5 Presence of coronary angioplasty implant and graft; Z95.1 Presence of aortocoronary bypass graft; Z86.718 Personal history of other venous thrombosis and embolism; J44.9 Chronic obstructive pulmonary disease, unspecified; Z79.02 Long term (current) use of antithrombotics/antiplatelets; Z79.82 Long term (current) use of aspirin; Z79.51 Long term (current) use of inhaled steroids; Z79.899 Other long term (current) drug therapy; Z88.0 Allergy status to penicillin
CPT/HCPCS: 88305; 85025; 45385; 43239; J2001; J2704

== ENCOUNTER 2017-05-12 09:45 | Emergency (ER) | payer MEDICARE, OTHER ==
[2017-05-12 09:57] VITALS: TEMP 97.1
--- NOTE | 2017-05-12 10:51 | ED ---
General Adult HPI - General Chief complaint: Recheck/Abnormal Lab/Rx Stated complaint: left hand pain/injury Time Seen by Provider: 05/12/17 10:12 Source: patient, RN notes reviewed Mode of arrival: ambulatory Limitations: no limitations - History of Present Illness Initial comments: 61-year-old female presents with 3 week history of left hand pain. Patient is currently on hemodialysis. She is receiving dialysis through a right chest wall on the cath. Approximately 6 weeks ago patient had a left upper extremity AV shunt placed. Patient's symptoms and her hands have been present for the past 3 weeks, include pain, weakness, numbness. The patient was told she did not have a radial pulse after the initial shunt placement. Denies any trauma to the hand. Denies fever or chills. Denies a swelling. Patient did have an IV placed in that hand and believes his symptoms are due to IV placement. - Related Data Home Medications Medication Instructions Recorded Confirmed Citalopram Hydrobromide [CeleXA] 20 mg PO DAILY 01/28/15 05/12/17 Isosorbide Mononitrate ER [Imdur] 60 mg PO DAILY 01/28/15 05/12/17 Fluticasone Nasal [place] [Flonase 2 spray EA NOSTRIL DAILY PRN 05/25/15 05/12/17 Nasal [place]] Aspirin [Adult Low Dose Aspirin EC] 81 mg PO DAILY 10/21/16 05/12/17 Sodium Bicarbonate Tab 650 mg PO AC-BID 12/28/16 05/12/17 Budesonide [Pulmicort] 1 mg INHALATION RT-BID PRN 03/22/17 05/12/17 Madeleine-Gill 1 tab PO DAILY 03/22/17 05/12/17 traMADol HCL [Ultram] 50 mg PO DAILY PRN 05/12/17 05/12/17 Previous Rx's Medication Instructions Recorded Nitroglycerin Sl Tabs [Nitrostat] 0.4 mg SUBLINGUAL Q5M PRN #25 tab 05/29/15 Atorvastatin [Lipitor] 80 mg PO DAILY #30 tab 06/10/15 Clopidogrel [Plavix] 75 mg PO DAILY #30 tab 06/10/15 Cholestyramine (with Sugar) 4 gm PO TID BETWEEN MEALS #30 10/23/16 [Questran Packet] packet Loperamide [Imodium] 2 mg PO QID PRN #30 cap 10/23/16 Calcium Acetate [PhosLo] 667 mg PO TID-W/MEALS #90 cap 01/02/17 Prazosin [Minipress] 2 mg PO TID #90 cap 01/02/17 amLODIPine [Norvasc] 10 mg PO DAILY #30 tab 01/02/17 QUEtiapine [SEROquel] 50 mg PO HS #30 tab 01/08/17 Metoprolol Tartrate [Lopressor] 50 mg PO BID #60 tab 01/14/17 Allergies Allergy/AdvReac Type Severity Reaction Status Date / Time Penicillins Allergy Rash/Hives Verified 05/12/17 10:35 garlic AdvReac Vomiting Verified 05/12/17 10:35 Review of Systems ROS Statement: Those systems with pertinent positive or pertinent negative responses have been documented in the HPI. ROS Other: All systems not noted in ROS Statement are negative. Past Medical History Past Medical History: Coronary Artery Disease (CAD), Chest Pain / Angina, COPD, Diabetes Mellitus, Dialysis, Deep Vein Thrombosis (DVT), Hyperlipidemia, Hypertension, Myocardial Infarction ([place]), Osteoarthritis (OA), Renal Disease Additional Past Medical History / Comment(s): RT DVT post CABG. CATARACTS. SINUS PROB. STATED "WT DOWN FROM 258 TO 166 OVER PAST YEAR STATED D/T INTERMITTENT N/V/D - SUBSIDED. RECENT COLONOSCOPY W/ EXC 16 POLYPS. DIALYSIS ,,. USES CANE Last Myocardial Infarction Date:: August 2009 History of Any Multi-Drug Resistant Organisms: None Reported Past Surgical History: Section, Coronary Bypass/CABG, Heart Catheterization With Stent, Tubal Ligation Additional Past Surgical History / Comment(s): Triple CABG; Heart Cath 2009 at [facility] in [place]. "Stent in right groin, FOR BLOOD CLOTS." RT KIDNEY BX. EGD/COLONOSCOPY MULT POLYPS REMOVED. TEMPORARY HEMODIALYSIS CATHETER RIGHT CHEST WALL, NEW ONE LFA. Past Anesthesia/Blood Transfusion Reactions: No Reported Reaction, Motion Sickness Additional Past Anesthesia/Blood Transfusion Reaction / Comment(s): BLOOD TRANSFUSION A BABY. CLAUSTROPHOBIA Date of Last Stent Placement:: August 2009 Past Psychological History: Anxiety, Depression Smoking Status: Former smoker - Past Family History Father Family Medical History: COPD, Hypertension, Myocardial Infarction ([place]) Mother Family Medical History: Cancer, Myocardial Infarction ([place]) Additional Family Medical History / Comment(s): brain and lung cancer Sister(s) Family Medical History: Cancer, Diabetes Mellitus, Liver Disease, Myocardial Infarction ([place]) Additional Family Medical History / Comment(s): heart cath with stent; . Brain and lung cancer General Exam Limitations: no limitations General appearance: alert, in no apparent distress Head exam: Present: atraumatic, normocephalic Eye exam: Present: normal appearance, PERRL ENT exam: Present: normal exam, mucous membranes moist Neck exam: Present: normal inspection. Absent: tenderness Respiratory exam: Present: normal lung sounds bilaterally. Absent: respiratory distress Cardiovascular Exam: Present: regular rate, normal rhythm GI/Abdominal exam: Present: soft. Absent: distended, tenderness Extremities exam: Present: other (Left hand: No radial pulse, reduced director of publications strength compared to the right, mild erythema on the dorsal surface, no induration or abscess.) Neurological exam: Present: alert, oriented X3 Psychiatric exam: Present: normal affect, normal mood Skin exam: Present: warm, dry Course Vital Signs 05/12/17 09:53 Temperature 97.1 F L Pulse Rate 76 Respiratory 18 Rate Blood Pressure 102/58 O2 Sat by Pulse 99 Oximetry Medical Decision Making - Medical Decision Making 61-year-old female presenting with left hand pain. Patient had AV shunt placed in the left upper extremity approximally 6 weeks ago. On examination she has no left radial pulse, hand is cool to the touch, director of publications strength reduced. Pulse oximetry placed on each finger is 93-95 with reduced waveform amplitude, right hand normal amplitude 99-100% pulse oximetry. Patient's symptoms have been present for approximately 3 weeks. I do believe there is a component of vascular steal causing the patient's pain. I discussed the case with the patient's vascular surgeon. He will see the patient in the office immediately after discharge. 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 Muse's office for evaluation. Referrals: Francis Encarnacion DO [Primary Care Provider] - 1-2 days Time of Disposition: 10:51
[2017-05-12 11:04] VITALS: BP 117/56; PULSE 78; RESP 16
== END 2017-05-12 11:04 | disposition home or self-care (01) ==
LOC: EC 09:45
DX: G45.8 Other transient cerebral ischemic attacks and related syndromes (principal); I25.10 Atherosclerotic heart disease of native coronary artery without angina pectoris; I10 Essential (primary) hypertension; I25.2 Old myocardial infarction; F41.9 Anxiety disorder, unspecified; F32.9 Major depressive disorder, single episode, unspecified; Z87.891 Personal history of nicotine dependence; Z95.1 Presence of aortocoronary bypass graft; Z95.5 Presence of coronary angioplasty implant and graft; Z86.718 Personal history of other venous thrombosis and embolism; Z99.2 Dependence on renal dialysis; Z79.82 Long term (current) use of aspirin; Z79.899 Other long term (current) drug therapy; Z88.0 Allergy status to penicillin; Z91.018 Allergy to other foods
CPT/HCPCS: 99283